=== PATIENT | female | born 1950 | race African-American/Black ===

== ENCOUNTER 2023-07-18 10:26 | Emergency (ER) | payer MEDICARE, MEDICAID, SELFPAY ==
[2023-07-18] VITALS (9 sets, daily range): BP systolic 117–174; BP diastolic 48–96; PULSE 60–117; RESP 18–20; TEMP 36.6–36.8; O2SAT 96–99; BMI 26.5
--- NOTE | ~2023-07-18 | XR_ITS ---
EXAMINATION: XR CHEST CLINICAL INFORMATION: Pain. COMPARISON: Chest radiograph dated 03/24/2018. TECHNIQUE: 2 views of the chest were obtained. FINDINGS: The lungs are clear. The cardiomediastinal silhouette is normal in size. There is no pleural effusion or pneumothorax. No acute osseous abnormality. XR/XR chest 2V IMPRESSION: No acute cardiopulmonary findings.
--- NOTE | ~2023-07-18 | CT_ITS ---
EXAMINATION: CT HEAD WITHOUT CONTRAST CLINICAL INFORMATION: 73-year-old with dizziness. COMPARISON: None available. TECHNIQUE: Contiguous axial imaging was performed from the skull base to vertex without intravenous administration of contrast. This CT examination was performed using dose optimization techniques as appropriate, variously including the following: *Automated exposure control *Adjustment of mA and/or kV according to patient size (this includes techniques or standardized protocols for targeted exams where dose is matched to indication/reason for exam; i.e. extremities or head) *Use of iterative reconstruction technique DLP: 523 mGy-cm FINDINGS: Brain Volume: Within normal limits within the limitations of qualitative assessment. Structural: No malformations. Brain and Meninges: Note is made of a partially calcified extra-axial mass overlying the anterior right frontal convexity along the superior frontal gyrus which appears dural based and measures 3.3 x 2.1 cm in maximum dimensions in the sagittal plane by approximately 2.5 cm in the maximum cross-sectional diameter in the coronal plane. This abuts the anterior falx cerebri and also appears diffusely hyperdense with central calcifications, consistent with a partially calcified meningioma. There is mild to moderate mass effect on the adjacent right superior frontal lobe. There may be a minimal degree of edema within the brain parenchyma adjacent to this. MRI of the brain without and with contrast is recommended for further assessment. The remainder of the brain is normal in morphology and attenuation. [place]-white matter interface is otherwise intact without acute territorial infarct, hemorrhage, extra-axial fluid collection or midline shift. Ganglionic structures, midbrain and brainstem appear within normal limits. Ventricles and Subarachnoid Spaces: The ventricular system is within normal limits with a normal appearance to the remainder of the subarachnoid spaces. There is no hydrocephalus. Orbital Structures: Grossly unremarkable within the limitations of the study. Osseous Structures, Sinuses/Mastoids, Extracranial Soft Tissues: Bony structures appear grossly intact. The visualized airspaces demonstrate mild mucosal thickening in the ethmoid complex and some retained secretions in the sphenoid sinus on the right. The visualized extra cranial soft tissue structures are within normal limits. CT/CT head/brain wo IV con IMPRESSION: 1. Partially calcified, 3.3 cm extra-axial mass overlying the anterior right frontal convexity as described above, most consistent with a partially calcified meningioma, probably with some adjacent mild brain edema. No midline shift. Recommend MRI of the brain without and with contrast for further assessment. 2. No acute territorial infarct, hemorrhage, extra-axial fluid collection, or other mass suspected. 3. Mild paranasal sinus inflammatory changes as described above. The [facility] staff will call to confirm receipt of this report with acknowledgement of the findings and any recommendations.
--- NOTE | 2023-07-18 11:09 | ED.GENADULT ---
HPI - General Adult General Chief complaint: General Medical Stated complaint: Back pain unable to walk Time Seen by Provider: 07/18/23 13:50 Source: patient and family Mode of arrival: ambulatory Limitations: no limitations History of Present Illness HPI narrative: Patient comes to the emergency room accompanied by her daughter. Patient recently, 3 days ago arrived from [facility]. Patient states that approximately 1 month ago, patient was in a normal state of health, active, no limitations. Then suddenly, about a month ago, patient had problems with her vision, states that she could only see white from both eyes which lasted for about 2-3 days. At the same time, patient had trouble speaking. Patient states she knew what she wanted to say but the words would not come out. Also, since then, patient has been much weaker, patient states that she is unsteady on her feet. Patient states that in the last month she has fallen and innumerable amount of time it is. Three days ago, [place] now patient living with her youngest daughter. Patient states that she has mild shoulder and back pain from the falls that she has had. Patient brought with her an MRI result from [facility] that she got done after the above-mentioned event. A meningioma was seen, no strokes were seen Related Data Previous Rx's Medication Instructions Recorded aspirin 81 mg tablet,delayed 81 mg PO DAILY #30 tabs 07/18/23 release blood sugar diagnostic (Freestyle #100 ea 07/18/23 In[employer]x Test Strips) blood-glucose meter (FreeStyle #1 ea 07/18/23 [place] kit) colchicine 0.6 mg tablet 0.6 mg PO BID PRN pain/gout #14 07/18/23 tabs esomeprazole magnesium 40 mg 40 mg PO DAILY #30 caps 07/18/23 capsule,delayed release ezetimibe 10 mg-rosuvastatin 10 mg 1 tab PO DAILY #30 tabs 07/18/23 tablet (Roszet) glucagon HCl 1 mg solution for 1 mg subcut Q20M PRN hypoglycemia 07/18/23 injection (Glucagon (HCl) #1 ea Emergency Kit) insulin aspart U-100 100 unit/mL 7 unit (0.07 mL) subcut DAILY #15 07/18/23 (3 mL) subcutaneous pen (Novolog mL FlexPen U-100 Insulin aspart) insulin glargine 100 unit/mL (3 16 unit (0.16 mL) subcut QPM #15 mL 07/18/23 mL) subcutaneous pen (Lantus Solostar U-100 Insulin) lancets 28 gauge (FreeStyle #100 ea 07/18/23 Lancets) pregabalin 75 mg capsule 75 mg PO DAILY #30 caps 07/18/23 Allergies Allergy/AdvReac Type Severity Reaction Status Date / Time IV contrast Allergy Intermediate Rash Uncoded 07/18/23 14:10 IBUProfen Allergy Unknown Rash Uncoded 07/18/23 11:16 Pencillin Allergy Unknown Rash Uncoded 07/18/23 11:16 Review of Systems Review of Systems: Constitutional : No Weight loss, No Fever, No Chills, No Night Sweats, No Fatigue, No Malaise ENT/Mouth : No Hearing loss, No Ear Pain, No Nasal Congestion, No Sinus Pain, No Hoarseness, No sore throat, No Rhinorrhea, No Swallowing Difficulty Eyes: No Eye Pain, No Swelling, No Redness, No Foreign Body, No Discharge, No Vision Changes Cardiovascular : No Chest Pain, No SOB, No Dyspnea on Exertion, No Orthopnea, No Edema, No Palpitations Respiratory : No Cough, No Sputum, No Wheezing, No Smoke Exposure, No Dyspnea Gastrointestinal : No Nausea, No Vomiting, No Diarrhea, No Constipation, No abdominal Pain, No Hematochezia, No Melena Genitourinary : no irregular bleeding, No Dysuria, No Urinary Frequency, No Hematuria, No Urinary Incontinence, No Urgency, No Flank Pain, No Urinary Flow Changes, No Hesitancy Musculoskeletal : Complaining of right shoulder and back pain from multiple falls. Skin : No Skin Lesions, No rash Neuro : No Weakness, No Numbness, No Paresthesias, No Loss of Consciousness, No Dizziness, No Headache Psych : No Anxiety/Panic, No Depression, No SI/HI/AH/VH, No Social Issues, Heme/Lymph: No Bruising, No Bleeding,No Lymphadenopathy Endocrine : No Polyuria, No Polydipsia, No Temperature Intolerance [facility] Past Medical History Medical History (Updated 07/18/23 @ 16:28 by Amy Lieberman MD) Type 2 diabetes mellitus Surgical History (Updated 06/04/20 @ 08:50 by BRIDGETT Peña) Hx of hand surgery Social History Social History (Updated 06/04/20 @ 08:49 by BRIDGETT Peña) Smoked in Last 30 Days: No Use of substances other than those prescribed or required for medical reasons: No Advance Directives: No Advance Directives Information Provided: No Physical Exam ED Vital Signs: Vital Signs - 24 hr 07/18/23 11:10 07/18/23 14:17 07/18/23 14:19 Temperature 98.3 F Pulse Rate 74 60 70 Respiratory Rate 20 Blood Pressure 130/61 155/72 H 117/96 H Pulse Oximetry 99 Oxygen Delivery Method Room Air 07/18/23 14:21 07/18/23 15:11 07/18/23 15:30 Temperature 98 F Pulse Rate 77 117 H 64 Respiratory Rate 18 Blood Pressure 143/77 H 174/54 H 156/48 H Pulse Oximetry 96 Oxygen Delivery Method Room Air BMI result Body Mass Index 26.5 Const Other: Appearance: Alert. Oriented X3. No acute distress. Eyes: Pupils equal, round and reactive to light. ENT: Pharynx normal. Neck: Normal inspection. Neck supple. No lymph nodes noted. No crepitus CVS: Normal heart rate and rhythm. Pulses normal. Normal S1 and S2 Respiratory: No respiratory distress. Breath sounds normal. No Wheezing. No rales Abdomen: Soft and nontender. No rigidity. No distention. Skin: Skin warm and dry. Normal skin color. Normal skin turgor. Extremities: No lower extremity edema. No Lacerations. No Rash Neuro: Oriented X 3. No motor deficit. No sensory deficit. Moving all extremities. No slurred speech. CN 2 through 12 grossly intact Psych: calm, cooperative, normal affect Course Course Course Narrative: 73-year-old patient recently arrived from [facility] with history of diabetes arrived from [facility] 3 days ago Three days ago she had an episode of vision loss and difficulty forming words a month ago, and lasted for 3 days, she has also had difficulty walking for the last 3 weeks with several falls which is a change from prior, as well as pain and the left side of her back upper and lower for past several weeks, as well as some discomfort with urination Labs are ordered as well as EKG and head CT This is rapid medical exam done in triage pending full evaluation by ER provider in the department Medications Administered Discontinued Medications Generic Name Dose Route Start Last Admin Trade Name Freq PRN Reason Stop Dose Admin Sodium Chloride 1,000 mls @ 999 mls/hr 07/18/23 14:06 07/18/23 16:10 Ns IVCONT 07/18/23 15:06 Infused .Q1H1M ONE Infusion Insulin Human Regular 10 unit 07/18/23 14:06 07/18/23 14:37 Insulin Regular, Human 100 Unit/Ml 3 Ml Vial IVPUSH 07/18/23 14:07 Not Given ONCE ONE Medical Decision Making Medical Decision Making [facility] Narrative: -my interpretation of labs: Normal hematology, normal chemistry except glucose which is a bit elevated at 327 -head CT radiology report pending. My interpretation of CT scan: Meningioma on the right side, no obvious intracranial bleed or signs of previous strokes -patient receiving IV fluids, IV insulin -patient was ambulated in the emergency room, it was reported by the patient's tech that the patient had a fairly normal gait and was able to ambulate by herself. -I discussed the CT scan with radiology on-call. Meningioma was seen. Recommendations: Follow up with MRI with and without contrast. -I discussed the above-mentioned recommendation with the patient and her daughter. They have an MRI report from [facility] done several weeks ago, with the results of meningioma. I discussed with the patient her daughter the week and repeat the MRI, get a 2nd opinion. At this time, the patient and her family would prefer to be discharged home. Discussed with the patient that given that she has had multiple falls, I recommend to have her follow up with Neurology. -Physical therapy CT/case management consult was offered to the patient and her daughter. However, they would prefer to go home. -patient requesting refills of some of her medications from [facility]. I reviewed the medications with the patient and the daughter, most of them I can send to the patient's pharmacy but, some of the patient's medications are not available in the [place] Differential Diagnosis Differential Diagnoses: The differential diagnosis associated with the presentation includes (TIA, CVA, UTI, cerebral mass, meningioma) Admission/Observation Consideration of admission/observation: Escalation of care including admission/observation considered Lab Data [facility] Lab Attestation statement: I reviewed the patient's lab results. 07/18/23 11:52 07/18/23 11:52 Labs: Lab Results 07/18/23 07/18/23 07/18/23 Range/Units 11:52 12:01 14:15 WBC 5.0 (4.8-10.8) X10*3/uL RBC 5.39 (4.20-5.50) X10*6/uL Hgb 14.0 (12.0-16.0) g/dl Hct 43.6 (37.0-47.0) % MCV 80.9 (80.0-98.0) fL MCH 26.0 L (27.0-33.0) pg MCHC 32.1 (31.0-35.0) g/dl RDW 16.1 H (11.0-16.0) % Plt Count 134 L (160-400) X10*3/uL MPV Not Reportable Immature Gran % (Auto) 0.4 (0.0-0.4) % Neut % (Auto) 62.8 (45-73) % Lymph % (Auto) 23.9 (20-40) % [place] % (Auto) 10.3 (2-11) % Eos % (Auto) 1.4 (0-4) % Baso % (Auto) 1.2 (0-2) % Lymph # (Auto) 1.2 (1.2-4.9) X10*3/uL [place] # (Auto) 0.5 (0.1-1.2) X10*3/uL Eos # (Auto) 0.1 (0.0-0.4) X10*3/uL Baso # (Auto) 0.1 (0.0-0.2) X10*3/uL Abs Immat Gran (auto) 0.02 (0.00-0.03) X10*3/uL Absolute Neuts (auto) 3.1 (2.0-8.3) x10*3/uL Absolute Nucleated RBC 0.000 (0.0-0.012) X10*3/uL Nucleated RBC % (auto) 0.0 (0.0-0.2) /100WBC Smear Tech's Comments VERIFIED PT 11.8 (11.1-13.3) SEC INR 1.0 (0.9-1.1) Sodium 138 (135-145) mmol/L Potassium 4.4 (3.3-5.1) mmol/L Chloride 105 (96-108) mmol/L Carbon Dioxide 22 (22-29) mmol/L Anion Gap 15 (12-20) BUN 13 (9-16) mg/dL Creatinine 0.85 (0.5-1.4) mg/dL Estim Creat Clear Calc 56.1 Estimated GFR > 60 POC Glucose 239 H (60-115) mg/dL Random Glucose 327 H (60-115) mg/dL Estimat Average Glucose 292 mg/dL Hemoglobin A1c % 11.8 H (<6.0) % Calcium 10.7 H (8.4-10.2) mg/dL Total Bilirubin 0.4 (0.0-1.0) mg/dL Direct Bilirubin 0.2 (0.0-0.5) mg/dL AST 17 (5-31) U/L ALT 14 (0-31) U/L Alkaline Phosphatase 140 H (39-117) U/L Troponin I High Sens < 2.7 (<3.5-17.0) ng/L Total Protein 7.7 (6.5-8.0) g/dL Albumin 4.3 (3.5-5.0) g/dL Urine Color Yellow Urine Appearance Clear Urine pH 5.0 (5.0-9.0) Ur Specific [place] >= 1.030 H (1.005-1.025) Urine Protein Negative (Neg-Trace) mg/dL Urine Glucose (UA) >=1000 H (Negative) mg/dL Urine Ketones Trace (Negative) mg/dL Urine Blood Negative (Negative) Urine Nitrite Negative (Negative) Ur Leukocyte Esterase Negative (Negative) Urine RBC 0-2 (0-2) /HPF Urine WBC 0-5 (0-5) /HPF Ur Squamous Epith Cells 0-2 (0-2) /HPF Urine Bacteria None Seen (None Seen) Hyaline Casts 0-2 (0-2) /LPF Independent Interpretation I performed an independent interpretation of an: CT Scan Radiology Impression Discussion of test interpretation with radiology: I have reviewed the radiologist's reading. Radiologist Impression: IMPRESSION: 1. Partially calcified, 3.3 cm extra-axial mass overlying the anterior right frontal convexity as described above, most consistent with a partially calcified meningioma, probably with some adjacent mild brain edema. No midline shift. Recommend MRI of the brain without and with contrast for further assessment. 2. No acute territorial infarct, hemorrhage, extra-axial fluid collection, or other mass suspected. 3. Mild paranasal sinus inflammatory changes as described above. The [facility] staff will call to confirm receipt of this report with acknowledgement of the findings and any recommendations. Independent Historian Clinical information obtained from an independent historian. History obtained from or confirmed by: Other (Patient's daughter) Tests considered The following testing was considered but not selected: I consider doing an MRI with and without contrast, however, the patient would prefer to be discharged home and do it in an outpatient basis. Critical Care Time Critical Care Time Critical Care Time: Yes Total Critical Care Time: 60 Attestation: I have personally provided critical care time. Time includes review of lab data, radiology results, discussion with consultants, and monitoring for potential decompensation. Intervention performed as documented. Discharge Plan Discharge Clinical Impression: Multiple falls, Meningioma Patient Disposition: Home, Self-Care Instructions: Meningioma (ED) Additional Instructions: Please follow-up with your primary care physician tomorrow. If you have any worsening or new symptoms, please return to the emergency room or call 911 Prescriptions: New colchicine 0.6 mg tablet 0.6 mg PO BID PRN (Reason: pain/gout) Qty: 14 0RF pregabalin 75 mg capsule 75 mg PO DAILY Qty: 30 1RF aspirin 81 mg tablet,delayed release (DR/EC) 81 mg PO DAILY Qty: 30 1RF ezetimibe-rosuvastatin [Roszet] 10-10 mg tablet 1 tab PO DAILY Qty: 30 1RF esomeprazole magnesium 40 mg capsule,delayed release(DR/EC) 40 mg PO DAILY Qty: 30 1RF insulin glargine [Lantus Solostar U-100 Insulin] 100 unit/mL (3 mL) insulin pen 16 unit subcut QPM Qty: 15 0RF insulin aspart U-100 [Novolog FlexPen U-100 Insulin] 100 unit/mL (3 mL) insulin pen 7 unit subcut DAILY Qty: 15 0RF (DME) blood-glucose meter [FreeStyle [place]] Kit See Rx Instructions .Route Qty: 1 0RF Rx Instructions: As directed (DME) Freestyle [employer] Test Strips Strip See Rx Instructions .Route Qty: 100 0RF Rx Instructions: As directed (DME) lancets [FreeStyle Lancets] 28 gauge misc See Rx Instructions .Route Qty: 100 0RF Rx Instructions: As directed glucagon HCl [Glucagon (HCl) Emergency Kit] 1 mg recon soln 1 mg subcut Q20M PRN (Reason: hypoglycemia) Qty: 1 0RF Rx Instructions: until target blood sugar attained Referrals: Angeles Agrawal MD [Physician] - 07/20/23 (Multiple falls, chronic meningioma)
--- NOTE | 2023-07-18 11:16 | ECG_ITS ---
Test Reason : PAIN Blood Pressure : / mmHG Vent. Rate : 073 BPM Atrial Rate : 073 BPM P-R Int : 148 ms QRS Dur : 074 ms QT Int : 348 ms P-R-T Axes : 034 -03 038 degrees QTc Int : 383 ms Normal sinus rhythm Normal ECG No previous ECGs available Referred By: Aniket Obrien Electronically Signed By:Roshan Ramsey
[2023-07-18 12:08] LABS: Basophils Absolute Auto 0.1 X10*3/uL (0.0-0.2); Basophils Percent Auto 1.2 % (0-2); Eosinophils Absolute Auto 0.1 X10*3/uL (0.0-0.4); Eosinophils Percent Auto 1.4 % (0-4); Hematocrit 43.6 % (37.0-47.0); Imm Gran Abs Auto 0.02 X10*3/uL (0.00-0.03); Imm Gran Pct Auto 0.4 % (0.0-0.4); Lymphocytes Absolute Auto 1.2 X10*3/uL (1.2-4.9); Lymphocytes Percent Auto 23.9 % (20-40); MANUAL DIFF FLAG SCAN; Mean Corpuscular HGB Conc 32.1 g/dl (31.0-35.0); Mean Corpuscular Volume 80.9 fL (80.0-98.0); Monocytes Absolute Auto 0.5 X10*3/uL (0.1-1.2); Monocytes Percent Auto 10.3 % (2-11); Neutrophils Absolute Auto 3.1 x10*3/uL (2.0-8.3); Neutrophils Percent Auto 62.8 % (45-73); PLT CLUMP 1; Red Blood Count 5.39 X10*6/uL (4.20-5.50); Red Cell Distribution Width 16.1 % (11.0-16.0); SCAN SMEAR FLAG 1
[2023-07-18 12:09] LABS: Prothrombin Time 11.8 SEC (11.1-13.3)
[2023-07-18 12:23] LABS: Alanine Aminotransferase 14 U/L (0-31); Albumin Level 4.3 g/dL (3.5-5.0); Alkaline Phosphatase 140 U/L (39-117); Anion Gap 15 (12-20); Aspartate Amino Transferase 17 U/L (5-31); Bilirubin Direct 0.2 mg/dL (0.0-0.5); Bilirubin Total 0.4 mg/dL (0.0-1.0); Blood Urea Nitrogen 13 mg/dL (9-16); Calcium 10.7 mg/dL (8.4-10.2); Carbon Dioxide 22 mmol/L (22-29); Chloride 105 mmol/L (96-108); Creatinine Clr Calc Pharmacy 56.1; Estimated Glomerular Filt Rate > 60; Glucose Random 327 mg/dL (60-115); Potassium 4.4 mmol/L (3.3-5.1); Sodium 138 mmol/L (135-145); Total Protein 7.7 g/dL (6.5-8.0)
[2023-07-18 12:25] LABS: Platelet Count 134 X10*3/uL (160-400); SLIDE REVIEW VERIFIED
[2023-07-18 12:31] LABS: Troponin-I High Sensitivity < 2.7 ng/L (<3.5-17.0)
[2023-07-18 12:43] LABS: Appearance Urine Clear; Color Urine Yellow; Glucose Urine UA >=1000 mg/dL (Negative); Leukocyte Esterase Urine Negative (Negative); Nitrite Urine Negative (Negative); Specific Gravity - Urine >= 1.030 (1.005-1.025); UMIC TRIGGER UACC YES; Urine Blood Negative (Negative); Urine Ketones Trace mg/dL (Negative); Urine Protein Negative (Neg-Trace)
[2023-07-18 12:48] LABS: Bacteria Urine None Seen (None Seen); Hyaline Casts Urine 0-2 /LPF (0-2); RBC Urine 0-2 /HPF (0-2); Squamous Epithelial Cell Urine 0-2 /HPF (0-2); WBC Urine 0-5 /HPF (0-5)
[2023-07-18 14:32] LABS: Estimated Average Glucose 292 mg/dL; Hemoglobin A1c % 11.8 % (<6.0)
[2023-07-18 14:33] LABS: Glucose, Whole Blood 239 mg/dL (60-115)
[2023-07-18] MEDS: 0.9 % Sodium Chloride 1,000 ML 999 ML IVCONT (14:37)
[2023-07-18 16:23] LABS: Glucose, Whole Blood 204 mg/dL (60-115)
== END 2023-07-18 17:04 | disposition home or self-care (01) ==
PROVIDERS: Physician Assistant Medical; Emergency Provider Emergency Medicine
DX: D32.0 Benign neoplasm of cerebral meninges (principal); M25.511 Pain in right shoulder; H53.8 Other visual disturbances; R47.9 Unspecified speech disturbances; R26.81 Unsteadiness on feet; M54.9 Dorsalgia, unspecified; R29.6 Repeated falls; E11.9 Type 2 diabetes mellitus without complications; Z79.4 Long term (current) use of insulin; Z79.82 Long term (current) use of aspirin; Z79.899 Other long term (current) drug therapy
CPT/HCPCS: 36415; 70450; 71046; 80048; 80076; 81001; 82947; 83036; 84484; 85025; 85610; 93005; 96360; 96361; 99284; 99285

== ENCOUNTER → 2023-07-18 11:16 | Outpatient (BNV) | payer MEDICARE, MEDICAID, SELFPAY | PROVIDERS: Emergency Provider Emergency Medicine; Visit Provider Internal Medicine Cardiovascular Disease | DX: R26.81 Unsteadiness on feet (principal) | CPT/HCPCS: 93010 ==

== ENCOUNTER 2023-07-23 09:27 | Emergency (ER) | payer MEDICARE, MEDICAID, SELFPAY ==
--- NOTE | ~2023-07-23 | XR_ITS ---
EXAMINATION: Dorsal and lumbar spine. CLINICAL INDICATION: Fall, pain and tenderness COMPARISON: None. TECHNIQUE: 3 views dorsal spine and 3 views lumbar spine. FINDINGS: DORSAL SPINE: There is normal thoracic kyphosis. The vertebral heights, alignment and disc heights are normal. There is no visible acute fracture, dislocation or subluxation seen. There is mild spondylosis lower dorsal spine. No aggressive lytic or sclerotic process seen. There is no acute fracture or dislocation. The paravertebral soft tissues are normal. LUMBAR SPINE: There is normal lumbar lordosis. The vertebral heights, alignment and disc heights are normal. There is mild bilateral L5-S1 facet joint hypertrophy. There is no visible acute fracture, dislocation or subluxation seen. SI joints are symmetrical and normal. The paravertebral soft tissues are normal XR/XR lumbar spine 2-3V IMPRESSION: Unremarkable dorsal spine. Mild bilateral L5-S1 facet joint arthropathy. No aggressive lytic or sclerotic process seen.
--- NOTE | ~2023-07-23 | CT_ITS ---
EXAMINATION: HEAD CT WITHOUT CONTRAST CERVICAL SPINE CT WITHOUT CONTRAST CLINICAL INFORMATION: persistent dizziness, frequent falls. Trauma COMPARISON: 07/18/2023 TECHNIQUE: Contiguous axial imaging of the head was performed without the administration of IV contrast. Axial multidetector volumetric images were also performed through the cervical spine without intravenous contrast. Multiplanar reconstructed images in coronal and sagittal orientations were submitted. This CT examination was performed using dose optimization techniques as appropriate, variously including the following: *Automated exposure control *Adjustment of mA and/or kV according to patient size (this includes techniques or standardized protocols for targeted exams where dose is matched to indication/reason for exam; i.e. extremities or head) *Use of iterative reconstruction technique DOSE: 849 mGy-cm FINDINGS: HEAD: Again seen is a dural based, partially calcified, extra-axial mass along the parasagittal right frontal convexity, consistent with a partially calcified meningioma. This measures up to 3.2 cm in diameter and is unchanged in size, producing mass effect upon the adjacent right frontal lobe. There is no evidence of acute intracranial hemorrhage or territorial infarction. No midline shift. No extra-axial fluid collections. [place] to white matter differentiation is well preserved. The ventricles are normal in size and configuration. A few foci of hypoattenuation in the subcortical and periventricular white matter are most consistent with mild chronic microvascular ischemic changes. The soft tissues and osseous structures are normal. Mild mucosal thickening in the sphenoid sinuses. Paranasal sinuses otherwise clear. Mastoid air cells are clear. CERVICAL SPINE: Vertebral body heights are normal. No fractures of the vertebral bodies or posterior elements. Vertebral alignment is normal. No subluxation. Incomplete fusion of the posterior arch of C1. Incidental note is made of small cervical ribs. The craniocervical and atlantoaxial articulations are normal. Intervertebral disc heights are normal. No significant degenerative disc disease. Facet joints are normal. Central canal and neural foramina appear patent without appreciable stenoses. No significant paravertebral soft tissue swelling. Cervical soft tissues are unremarkable. Imaged portions of the lung apices are clear. CT/CT cervical spine wo IV con IMPRESSION: 1. No acute intracranial pathology. Unchanged partially calcified meningioma along the right frontal convexity with adjacent mass effect upon the right frontal lobe.. 2. No acute fracture or malalignment in the cervical spine.
--- NOTE | ~2023-07-23 | XR_ITS ---
EXAMINATION: Dorsal and lumbar spine. CLINICAL INDICATION: Fall, pain and tenderness COMPARISON: None. TECHNIQUE: 3 views dorsal spine and 3 views lumbar spine. FINDINGS: DORSAL SPINE: There is normal thoracic kyphosis. The vertebral heights, alignment and disc heights are normal. There is no visible acute fracture, dislocation or subluxation seen. There is mild spondylosis lower dorsal spine. No aggressive lytic or sclerotic process seen. There is no acute fracture or dislocation. The paravertebral soft tissues are normal. LUMBAR SPINE: There is normal lumbar lordosis. The vertebral heights, alignment and disc heights are normal. There is mild bilateral L5-S1 facet joint hypertrophy. There is no visible acute fracture, dislocation or subluxation seen. SI joints are symmetrical and normal. The paravertebral soft tissues are normal XR/XR thoracic spine 3V IMPRESSION: Unremarkable dorsal spine. Mild bilateral L5-S1 facet joint arthropathy. No aggressive lytic or sclerotic process seen.
--- NOTE | ~2023-07-23 | XR_ITS ---
EXAMINATION: XR CHEST CLINICAL INFORMATION: Fatigue COMPARISON: Chest 07/18/2023 TECHNIQUE: 2 views of the chest were obtained. FINDINGS: The lungs are well-expanded and clear. The heart size and pulmonary vascularity is normal. There is mild spondylosis of dorsal spine. No aggressive lytic or sclerotic process seen. XR/XR chest 2V IMPRESSION: Unremarkable chest examination.
--- NOTE | ~2023-07-23 | MR_ITS ---
EXAMINATION: MR BRAIN WITHOUT CONTRAST CLINICAL INFORMATION: Difficulty walking, falls COMPARISON: CT head 07/23/2023 and 07/18/2023 TECHNIQUE: MRI of the brain was obtained using routine sequences without contrast. FINDINGS: No acute infarct. No acute intracranial hemorrhage or extra-axial fluid collection. Mild to moderate generalized parenchymal volume loss that findings to suggest superimposed communicating hydrocephalus. Patchy T2 FLAIR hyperintense foci in the subcortical and periventricular white matter, nonspecific but presumably mild chronic microangiopathy. Focus of chronic ischemia/chronic lacunar infarct within the right paramidline dorsal pontomesencephalic junction. Stable densely calcified meningioma along the high anterior right frontal convexity measuring 3.0 x 2.5 x 2.7 cm with mild mass effect along the subjacent right frontal lobe but without vasogenic edema. The medial margin abuts the right aspect of the falx cerebri. No herniation pattern. Normal intracranial arterial and dural venous sinus flow voids. Partially empty sella. The orbits are grossly unremarkable. Mild to moderate patchy paranasal sinus mucosal disease, most pronounced in the right sphenoid sinus. No mastoid effusion. Normal marrow signal. MR/MR head/brain wo con IMPRESSION: 1. No acute intracranial process. 2. Mild to moderate global cerebral volume loss and nonspecific white matter disease, presumably mild chronic microangiopathy. Small focus of presumed chronic ischemia/chronic lacunar infarct at the right paramidline dorsal pontomesencephalic junction. 3. Stable 3.0 x 2.5 x 2.7 cm with mild mass effect along the subjacent right frontal lobe but without vasogenic edema.
[2023-07-23 09:35] VITALS: BP 133/73; PULSE 62; O2SAT 99
[2023-07-23 09:41] VITALS: BP 135/56; PULSE 62; RESP 18; TEMP 36.6; O2SAT 99; BMI 27.3
--- NOTE | 2023-07-23 10:12 | ED.GENADULT ---
HPI - General Adult General Chief complaint: General Medical Stated complaint: DRY COUGH,WEAK,DIFF AMB PER EMS Time Seen by Provider: 07/23/23 10:12 History of Present Illness HPI narrative: The patient is a 73-year-old female who has a history of diabetes. She is originally from [facility] but had been living in this country for a long time until . She returned to [facility] in March of 2020 or thereabouts and stayed in [facility] for approximately 3 years. She returned to this country about 8 days ago. Apparently over the last few months the patient has been having trouble with dizziness and walking and frequent falls. She had an MRI of her brain in [facility] before returning to this country that showed a meningioma. The patient came to the emergency room here 5 days ago on July 18. At that visit she was complaining of pains in her shoulders and her back that she attributed to multiple falls that she had had in the previous few months. In the emergency room on July 18 she received a L of IV fluids and also a dose of insulin for hyperglycemia. The patient was offered physical therapy evaluation and case management when she was here 5 days ago but she preferred to go home with her daughter. She has been living with her daughter. Over the last few days she continues to feel dizzy and her blood sugars have remained quite high. This morning her daughter called an ambulance because her blood sugar was 535. She has been feeling weaker and has been having more trouble walking. She also has a nonproductive cough. Related Data Previous Rx's Medication Instructions Recorded aspirin 81 mg tablet,delayed 81 mg PO DAILY #30 tabs 07/18/23 release blood sugar diagnostic (Freestyle #100 ea 07/18/23 [employer] Test Strips) blood-glucose meter (FreeStyle #1 ea 07/18/23 [place] kit) colchicine 0.6 mg tablet 0.6 mg PO BID PRN pain/gout #14 07/18/23 tabs esomeprazole magnesium 40 mg 40 mg PO DAILY #30 caps 07/18/23 capsule,delayed release ezetimibe 10 mg-rosuvastatin 10 mg 1 tab PO DAILY #30 tabs 07/18/23 tablet (Roszet) glucagon HCl 1 mg solution for 1 mg subcut Q20M PRN hypoglycemia 07/18/23 injection (Glucagon (HCl) #1 ea Emergency Kit) insulin aspart U-100 100 unit/mL 7 unit (0.07 mL) subcut DAILY #15 07/18/23 (3 mL) subcutaneous pen (Novolog mL FlexPen U-100 Insulin aspart) insulin glargine 100 unit/mL (3 16 unit (0.16 mL) subcut QPM #15 mL 07/18/23 mL) subcutaneous pen (Lantus Solostar U-100 Insulin) lancets 28 gauge (FreeStyle #100 ea 07/18/23 Lancets) pregabalin 75 mg capsule 75 mg PO DAILY #30 caps 07/18/23 pregabalin 75 mg capsule 75 mg PO BEDTIME #30 caps 07/23/23 Allergies Allergy/AdvReac Type Severity Reaction Status Date / Time IV contrast Allergy Intermediate Rash Uncoded 07/18/23 14:10 IBUProfen Allergy Unknown Rash Uncoded 07/18/23 11:16 Pencillin Allergy Unknown Rash Uncoded 07/18/23 11:16 [facility] Past Medical History Medical History (Updated 07/23/23 @ 16:17 by Alvin Hebert MD) Type 2 diabetes mellitus Surgical History (Updated 06/04/20 @ 08:50 by BRIDGETT Peña) Hx of hand surgery Social History Social History (Updated 06/04/20 @ 08:49 by BRIDGETT Peña) Smoked in Last 30 Days: No Use of substances other than those prescribed or required for medical reasons: No Any prior treatment program specific to substance use: No Advance Directives: No Advance Directives Information Provided: Yes Physical Exam ED Vital Signs: Vital Signs - 24 hr 07/23/23 09:41 07/23/23 12:24 Temperature 97.9 F Pulse Rate 62 54 Respiratory Rate 18 15 Blood Pressure 135/56 L 159/66 H Pulse Oximetry 99 98 Oxygen Delivery Method Room Air Room Air BMI result Body Mass Index 27.3 Const Other: The patient is awake and alert. She is a pleasant 73-year-old. She looks chronically ill but not obviously acutely ill. HENMT Other: Face is symmetrical. Mucous membranes moist. Eyes Other: Pupils are round equal, lateral gaze is intact, visual marcano are intact to confrontation. Neck Other: Moving her neck easily. There was some posterior C-spine tenderness however. Resp Other: Lungs are clear bilaterally. Cardio Other: The patient has regular rate and rhythm no murmur GI Other: Abdomen is soft nontender Skin Other: Skin is dry and unremarkable Neuro Other: The patient is awake, alert, oriented, appropriate. Speech is clear. Face is symmetrical. Eye movements are normal. Visual marcano are intact to confrontation. She has symmetrical strength in all 4 extremities. No pronator drift. Finger-nose is normal bilaterally. She was able to walk fairly well with assistance but said that she would feel unsteady if she was not holding on to something. No definite focal neurological deficit. Medications Administered Discontinued Medications Generic Name Dose Route Start Last Admin Trade Name Fresanjeev PRN Reason Stop Dose Admin Sodium Chloride 1,000 mls @ 999 mls/hr 07/23/23 10:30 07/23/23 13:03 Ns IV 07/23/23 11:30 Infused .Q1H1M SARI Infusion Medical Decision Making Medical Decision Making [facility] Narrative: Patient is a very pleasant 73-year-old type 2 diabetic who has been having problems with walking and falls for several weeks or even a couple of months. She has recently returned from [facility]. She does not have a PCP. She describes having had multiple falls over the last several weeks or months. She has pain in her neck and in her back from these falls. Patient had imaging studies that shows no injuries from her multiple falls including head CT, cervical spine CT, x-rays of the thoracic spine in the lumbar spine. Her labs are largely unremarkable. EKG unremarkable. An MRI of the brain does not show any findings to suggest that she has had a recent posterior circulation stroke that might be accounting for her unsteadiness and frequent falls. I explained to the patient that we could keep her in the emergency room to be seen by case management and physical therapy but this would probably means that she would be in the emergency room till Tuesday. She did not wish to stay in the emergency room for these services until Tuesday. She said under those circumstances she wanted to go home. I wrote a prescription for a walker. She will likely do fairly well with a walker in my opinion. She also requested a prescription for needles for her insulin. She has NovoLog and Lantus. I wrote prescriptions for needles for her insulins. Lab Data 07/23/23 10:47 07/23/23 10:47 Labs: Lab Results 07/23/23 07/23/23 07/23/23 Range/Units 10:47 10:51 11:29 WBC 5.0 (4.8-10.8) X10*3/uL RBC 5.11 (4.20-5.50) X10*6/uL Hgb 13.2 (12.0-16.0) g/dl Hct 41.4 (37.0-47.0) % MCV 81.0 (80.0-98.0) fL MCH 25.8 L (27.0-33.0) pg MCHC 31.9 (31.0-35.0) g/dl RDW 15.9 (11.0-16.0) % Plt Count 127 L (160-400) X10*3/uL MPV Not Reportable Immature Gran % (Auto) 0.2 (0.0-0.4) % Neut % (Auto) 63.8 (45-73) % Lymph % (Auto) 28.6 (20-40) % [place] % (Auto) 5.8 (2-11) % Eos % (Auto) 1.0 (0-4) % Baso % (Auto) 0.6 (0-2) % Lymph # (Auto) 1.4 (1.2-4.9) X10*3/uL [place] # (Auto) 0.3 (0.1-1.2) X10*3/uL Eos # (Auto) 0.1 (0.0-0.4) X10*3/uL Baso # (Auto) 0.0 (0.0-0.2) X10*3/uL Abs Immat Gran (auto) 0.01 (0.00-0.03) X10*3/uL Absolute Neuts (auto) 3.2 (2.0-8.3) x10*3/uL Absolute Nucleated RBC 0.000 (0.0-0.012) X10*3/uL Nucleated RBC % (auto) 0.0 (0.0-0.2) /100WBC VBG pH 7.40 (7.32-7.43) VBG pCO2 37 mmHg VBG pO2 46 mmHg VBG HCO3 23 (22-26) mmol/L VBG O2 Saturation 74.0 % VBG Base Excess -1.0 mmol/L Sodium 139 (135-145) mmol/L Potassium 4.1 (3.3-5.1) mmol/L Chloride 108 (96-108) mmol/L Carbon Dioxide 22 (22-29) mmol/L Anion Gap 13 (12-20) BUN 12 (9-16) mg/dL Creatinine 0.87 (0.5-1.4) mg/dL Estim Creat Clear Calc 55.6 Estimated GFR > 60 Random Glucose 368 H* (60-115) mg/dL Calcium 10.9 H (8.4-10.2) mg/dL Magnesium 2.4 (1.6-2.6) mg/dL Total Bilirubin 0.3 (0.0-1.0) mg/dL Direct Bilirubin 0.1 (0.0-0.5) mg/dL AST 12 (5-31) U/L ALT 9 (0-31) U/L Alkaline Phosphatase 140 H (39-117) U/L Troponin I High Sens < 2.7 (<3.5-17.0) ng/L C-Reactive Protein 1.26 H (< or = 0.50) mg/dL B-Natriuretic Peptide 15 (<100) pg/mL Total Protein 7.0 (6.5-8.0) g/dL Albumin 3.8 (3.5-5.0) g/dL Urine Color Yellow Urine Appearance Clear Urine pH 5.0 (5.0-9.0) Ur Specific [place] >= 1.030 H (1.005-1.025) Urine Protein Negative (Neg-Trace) mg/dL Urine Glucose (UA) >=1000 H (Negative) mg/dL Urine Ketones 15 (Negative) mg/dL Urine Blood Negative (Negative) Urine Nitrite Negative (Negative) Ur Leukocyte Esterase Negative (Negative) Urine RBC 0-2 (0-2) /HPF Urine WBC 0-5 (0-5) /HPF Ur Squamous Epith Cells 0-2 (0-2) /HPF Urine Bacteria None Seen (None Seen) Hyaline Casts 0-2 (0-2) /LPF Influenza Type A (PCR) NEGATIVE (Negative) Influenza Type B (PCR) NEGATIVE (Negative) RSV RNA Qual (PCR) NEGATIVE (Negative) SARS-CoV-2 RNA (RT-PCR) NEGATIVE (Negative) Independent Interpretation I performed an independent interpretation of an: EKG Interpretation: EKG at 10:28 shows sinus bradycardia 59 beats per minute. It is an otherwise normal EKG. Discharge Plan Discharge Clinical Impression: Frequent falls, Back pain, Cough, Type 2 diabetes mellitus Patient Disposition: Home, Self-Care Additional Instructions: Your testing in the emergency room today is reassuring. There is no sign of a recent stroke on your MRI. I have given you a prescription which I hope will allow you to get a walker. I think you will be able to walk more safely with a walker. I have also written a prescription which I hope will allow the pharmacy to give you additional insulin needles. Please work on getting a new primary care doctor. You may try the [facility] at [phone]. Return to the emergency room if worse. Prescriptions: New pregabalin 75 mg capsule 75 mg PO BEDTIME Qty: 30 0RF No Action colchicine 0.6 mg tablet 0.6 mg PO BID PRN (Reason: pain/gout) Qty: 14 0RF pregabalin 75 mg capsule 75 mg PO DAILY Qty: 30 1RF aspirin 81 mg tablet,delayed release (DR/EC) 81 mg PO DAILY Qty: 30 1RF ezetimibe-rosuvastatin [Roszet] 10-10 mg tablet 1 tab PO DAILY Qty: 30 1RF esomeprazole magnesium 40 mg capsule,delayed release(DR/EC) 40 mg PO DAILY Qty: 30 1RF insulin glargine [Lantus Solostar U-100 Insulin] 100 unit/mL (3 mL) insulin pen 16 unit subcut QPM Qty: 15 0RF insulin aspart U-100 [Novolog FlexPen U-100 Insulin] 100 unit/mL (3 mL) insulin pen 7 unit subcut DAILY Qty: 15 0RF (DME) blood-glucose meter [FreeStyle [place]] Kit See Rx Instructions .Route Qty: 1 0RF Rx Instructions: As directed (DME) Freestyle [employer] Test Strips Strip See Rx Instructions .Route Qty: 100 0RF Rx Instructions: As directed (DME) lancets [FreeStyle Lancets] 28 gauge misc See Rx Instructions .Route Qty: 100 0RF Rx Instructions: As directed glucagon HCl [Glucagon (HCl) Emergency Kit] 1 mg recon soln 1 mg subcut Q20M PRN (Reason: hypoglycemia) Qty: 1 0RF Rx Instructions: until target blood sugar attained Referrals: [facility] [Primary Care Provider] - (Frequent falls, type 2 diabetes) Interventions: ED Discharge Assessment Last Done: 07/23/23 17:10 Discharge Date/Time: 07/23/23 17:12
--- NOTE | 2023-07-23 10:20 | ECG_ITS ---
Test Reason : WEAKNESS Blood Pressure : / mmHG Vent. Rate : 059 BPM Atrial Rate : 059 BPM P-R Int : 160 ms QRS Dur : 076 ms QT Int : 378 ms P-R-T Axes : 050 008 046 degrees QTc Int : 374 ms Sinus bradycardia Otherwise normal ECG When compared with ECG of 18-JUL-2023 11:34, No significant change was found Referred By: Alvin Hebert Electronically Signed By:Roshan Ramsey
[2023-07-23 10:51] LABS: MANUAL DIFF FLAG NO
[2023-07-23 10:56] LABS: Basophils Percent Auto 0.6 % (0-2); Eosinophils Absolute Auto 0.1 X10*3/uL (0.0-0.4); Hematocrit 41.4 % (37.0-47.0); Hemoglobin 13.2 g/dl (12.0-16.0); Imm Gran Abs Auto 0.01 X10*3/uL (0.00-0.03); Imm Gran Pct Auto 0.2 % (0.0-0.4); Lymphocytes Absolute Auto 1.4 X10*3/uL (1.2-4.9); Lymphocytes Percent Auto 28.6 % (20-40); Mean Corpuscular HGB Conc 31.9 g/dl (31.0-35.0); Mean Corpuscular Hemoglobin 25.8 pg (27.0-33.0); Monocytes Absolute Auto 0.3 X10*3/uL (0.1-1.2); Monocytes Percent Auto 5.8 % (2-11); Neutrophils Absolute Auto 3.2 x10*3/uL (2.0-8.3); Neutrophils Percent Auto 63.8 % (45-73); Platelet Count 127 X10*3/uL (160-400); Red Blood Count 5.11 X10*6/uL (4.20-5.50); Red Cell Distribution Width 15.9 % (11.0-16.0)
[2023-07-23 10:56] LABS: Venous Blood Gas Refer to POC result
[2023-07-23 10:57] LABS: VBG HCO3 23 mmol/L (22-26); VBG pCO2 37 mmHg; VBG pO2 46 mmHg
[2023-07-23] MEDS: 0.9 % Sodium Chloride 1,000 ML 999 ML IV (11:06)
[2023-07-23 11:12] LABS: B Type Natriuretic Peptide 15 pg/mL (<100)
[2023-07-23 11:15] LABS: Alanine Aminotransferase 9 U/L (0-31); Albumin Level 3.8 g/dL (3.5-5.0); Alkaline Phosphatase 140 U/L (39-117); Anion Gap 13 (12-20); Aspartate Amino Transferase 12 U/L (5-31); Bilirubin Direct 0.1 mg/dL (0.0-0.5); Bilirubin Total 0.3 mg/dL (0.0-1.0); Blood Urea Nitrogen 12 mg/dL (9-16); C Reactive Protein 1.26 mg/dL (< or = 0.50); Calcium 10.9 mg/dL (8.4-10.2); Carbon Dioxide 22 mmol/L (22-29); Chloride 108 mmol/L (96-108); Creatinine Clr Calc Pharmacy 55.6; Estimated Glomerular Filt Rate > 60; Glucose Random 368 mg/dL (60-115); Magnesium 2.4 mg/dL (1.6-2.6); Potassium 4.1 mmol/L (3.3-5.1); Sodium 139 mmol/L (135-145)
[2023-07-23 11:16] LABS: Troponin-I High Sensitivity < 2.7 ng/L (<3.5-17.0)
[2023-07-23 11:34] LABS: Appearance Urine Clear; Color Urine Yellow; Glucose Urine UA >=1000 mg/dL (Negative); Leukocyte Esterase Urine Negative (Negative); Nitrite Urine Negative (Negative); Specific Gravity - Urine >= 1.030 (1.005-1.025); UMIC TRIGGER UACC YES; Urine Blood Negative (Negative); Urine Ketones 15 mg/dL (Negative); Urine Protein Negative (Neg-Trace)
[2023-07-23 11:43] LABS: Influenza A PCR NEGATIVE (Negative); Influenza B PCR NEGATIVE (Negative); Resp Syncy Virus RNA Qual PCR NEGATIVE (Negative); SARS COV2 PCR INHOUSE NEGATIVE (Negative)
[2023-07-23 11:45] LABS: Bacteria Urine None Seen (None Seen); Hyaline Casts Urine 0-2 /LPF (0-2); RBC Urine 0-2 /HPF (0-2); Squamous Epithelial Cell Urine 0-2 /HPF (0-2); WBC Urine 0-5 /HPF (0-5)
[2023-07-23 12:24] VITALS: BP 159/66; PULSE 54; RESP 15; O2SAT 98
== END 2023-07-23 17:12 | disposition home or self-care (01) ==
PROVIDERS: Emergency Provider Emergency Medicine
DX: M54.9 Dorsalgia, unspecified (principal); R05.9 Cough, unspecified; E11.9 Type 2 diabetes mellitus without complications; R29.6 Repeated falls; Z91.81 History of falling; Z20.822 Contact with and (suspected) exposure to COVID-19; Z20.828 Contact with and (suspected) exposure to other viral communicable diseases; Z79.4 Long term (current) use of insulin; Z79.82 Long term (current) use of aspirin; Z79.899 Other long term (current) drug therapy
CPT/HCPCS: 0241U; 36415; 70450; 70551; 71046; 72072; 72100; 72125; 80048; 80076; 81001; 82803; 83735; 83880; 84484; 85025; 86140; 93005; 96360; 96361; 99284

== ENCOUNTER → 2023-07-23 10:20 | Outpatient (BNV) | payer MEDICARE, MEDICAID, SELFPAY | PROVIDERS: Emergency Provider Emergency Medicine; Visit Provider Internal Medicine Cardiovascular Disease | DX: R53.1 Weakness (principal) | CPT/HCPCS: 93010 ==

== ENCOUNTER 2023-08-06 09:49 | Emergency (ER) | payer MEDICARE, MEDICAID, SELFPAY ==
--- NOTE | ~2023-08-06 | CT_ITS ---
EXAMINATION: CT ABDOMEN AND PELVIS WITHOUT CONTRAST CLINICAL INFORMATION: Diffuse abdominal pain. COMPARISON: 12/26/2019 MRI. TECHNIQUE: Multidetector volumetric imaging was performed from the superior aspect of the liver through the pubic symphysis without contrast per request. Sagittal and coronal reformatted images were obtained on the technologist workstation. This CT examination was performed using dose optimization techniques as appropriate, variously including the following: *Automated exposure control *Adjustment of mA and/or kV according to patient size (this includes techniques or standardized protocols for targeted exams where dose is matched to indication/reason for exam; i.e. extremities or head) *Use of iterative reconstruction technique DLP: 458 mGy-cm. FINDINGS: LUNG BASES: The visualized lung bases are unremarkable. LIVER, GALLBLADDER, BILIARY TREE: The non-contrast liver is normal in size, shape, and attenuation. No focal hepatic lesion or biliary ductal dilatation is present. The gallbladder is unremarkable with no evidence of radiopaque gallstones, gallbladder wall thickening, or obvious pericholecystic inflammatory changes. PANCREAS: Unremarkable. SPLEEN: Unremarkable. ADRENAL GLANDS: Unremarkable. KIDNEYS AND URETERS: The kidneys are normal in size, shape, and attenuation. No hydronephrosis, hydroureter, or perinephric stranding. No calculi. BLADDER: Decompressed GASTROINTESTINAL TRACT: Few scattered colonic diverticula are seen but no colonic wall thickening or pericolonic inflammatory change suggest diverticulitis. Visualized appendix is unremarkable. ABDOMINAL WALL: No significant hernia is appreciated. LYMPHOVASCULAR STRUCTURES: No lymphadenopathy. The aorta is unremarkable.. PELVIC VISCERA: Unremarkable. OSSEUS STRUCTURES: Unremarkable. CT/CT abdomen pelvis wo IV con IMPRESSION: No acute intra-abdominal process seen. Scattered diverticulosis but no evidence for diverticulitis.
--- NOTE | ~2023-08-06 | MR_ITS ---
EXAMINATION: MR LUMBAR SPINE WITHOUT CONTRAST CLINICAL INFORMATION: back pain, unable to ambulate. COMPARISON: None TECHNIQUE: MRI of the lumbar spine was obtained using routine sequences without contrast. FINDINGS: Grade 1 anterolisthesis of L5 on S1. No suspicious marrow signal or focal osseous lesion. No significant marrow edema. The vertebral body heights are maintained. Mild multilevel disc desiccation and mild disc height loss at L5-S1. The conus medullaris terminates at the level of L2-L3. The distal spinal cord is normal in appearance. The cauda equina nerve roots appear normal. No significant abnormalities of the paraspinal musculature. Limited evaluation of the intra-abdominal structures without significant abnormalities. The abdominal aorta is of normal contour and caliber. SPINAL LEVELS: Visualized only on sagittal imaging, shallow disc bulge and facet arthropathy at T11-T12 contributes to suspected mild to moderate central spinal canal stenosis. There is also a shallow disc bulge at T10-T11 without significant canal narrowing. L1-L2: No significant spinal canal or neuroforaminal narrowing. L2-L3: No significant spinal canal or neuroforaminal narrowing. L3-L4: No significant spinal canal or neuroforaminal narrowing. Shallow disc bulge L4-L5: No significant spinal canal or neuroforaminal narrowing. Shallow disc bulge L5-S1: Severe facet arthropathy with small joint effusions, anterolisthesis with posterior disc uncovering and superimposed disc bulge, ligamentum flavum thickening. Moderate central spinal canal stenosis. Bilateral subarticular zone effacement with compression of the traversing S1 nerve roots. Moderate bilateral neural foraminal narrowing with impingement of the exiting L5 nerve roots. MR/MR lumbar spine wo con IMPRESSION: 1. At L5-S1, there is grade 1 anterolisthesis related to advanced facet arthropathy with superimposed disc bulge contributing to moderate spinal canal stenosis, bilateral subarticular zone effacement with compression of the traversing S1 nerve roots, and moderate bilateral neural foraminal narrowing with impingement of the exiting L5 nerve roots. 2. Borderline low positioning of the conus medullaris at the level of L2-L3. 3. Visualized only on sagittal imaging, there is suspected mild to moderate spinal canal stenosis at T11-T12.
[2023-08-06 10:00] VITALS: BP 127/67; PULSE 57; O2SAT 100
[2023-08-06 10:04] VITALS: BP 105/55; PULSE 60; RESP 16; TEMP 36.8; O2SAT 98; BMI 26.6
[2023-08-06 10:46] LABS: Basophils Absolute Auto 0.1 X10*3/uL (0.0-0.2); Basophils Percent Auto 0.9 % (0-2); Eosinophils Percent Auto 0.7 % (0-4); Hematocrit 43.7 % (37.0-47.0); Hemoglobin 13.9 g/dl (12.0-16.0); Imm Gran Abs Auto 0.03 X10*3/uL (0.00-0.03); Imm Gran Pct Auto 0.5 % (0.0-0.4); Lymphocytes Absolute Auto 1.6 X10*3/uL (1.2-4.9); Lymphocytes Percent Auto 27.8 % (20-40); MANUAL DIFF FLAG SCAN; Mean Corpuscular HGB Conc 31.8 g/dl (31.0-35.0); Mean Corpuscular Hemoglobin 25.8 pg (27.0-33.0); Mean Corpuscular Volume 81.2 fL (80.0-98.0); Monocytes Absolute Auto 0.3 X10*3/uL (0.1-1.2); Monocytes Percent Auto 5.8 % (2-11); Neutrophils Absolute Auto 3.7 x10*3/uL (2.0-8.3); Neutrophils Percent Auto 64.3 % (45-73); PLT CLUMP 1; Red Blood Count 5.38 X10*6/uL (4.20-5.50); SCAN SMEAR FLAG 1
[2023-08-06 10:47] LABS: White Blood Count 5.7 X10*3/uL (4.8-10.8)
[2023-08-06 10:50] LABS: Alanine Aminotransferase 10 U/L (0-31); Albumin Level 3.9 g/dL (3.5-5.0); Alkaline Phosphatase 125 U/L (39-117); Anion Gap 11 (12-20); Aspartate Amino Transferase 17 U/L (5-31); Bilirubin Direct 0.2 mg/dL (0.0-0.5); Bilirubin Total 0.5 mg/dL (0.0-1.0); Blood Urea Nitrogen 11 mg/dL (9-16); Calcium 10.9 mg/dL (8.4-10.2); Carbon Dioxide 22 mmol/L (22-29); Chloride 108 mmol/L (96-108); Creatinine Clr Calc Pharmacy 62.8; Estimated Glomerular Filt Rate > 60; Glucose Random 180 mg/dL (60-115); Lipase 13 U/L (8-78); Sodium 137 mmol/L (135-145); Total Protein 6.8 g/dL (6.5-8.0)
[2023-08-06 11:16] LABS: Platelet Count 142 X10*3/uL (160-400); SLIDE REVIEW VERIFIED
[2023-08-06 13:22] LABS: CT PCR NOT DETECTED (Not Detect.); NG PCR NOT DETECTED (Not Detect.)
[2023-08-06 16:06] VITALS: BP 173/75; PULSE 53; RESP 16; TEMP 36.4; O2SAT 100
--- NOTE | 2023-08-06 16:20 | PC.NURSE ---
pt brought in by EMS. pt reports difficulty walking for about one month. she lives with her daughter who helps her. Pt also reports back pain and lower abd pain. Pt reports irritation in her vagina. labs done while wiating in waiting room. Urine sample sent to lab. waiting for provider pick-up
[2023-08-06 16:22] LABS: Appearance Urine Clear; Color Urine Yellow; Glucose Urine UA 100 mg/dL (Negative); Leukocyte Esterase Urine Trace (Negative); Nitrite Urine Negative (Negative); PH 5.5 (5.0-9.0); UMIC TRIGGER UACC YES; Urine Blood Negative (Negative); Urine Ketones Trace mg/dL (Negative); Urine Protein Negative (Neg-Trace)
[2023-08-06 16:27] LABS: Bacteria Urine None Seen (None Seen); Hyaline Casts Urine 0-2 /LPF (0-2); RBC Urine 0-2 /HPF (0-2); UACC Culture Trigger YES
--- NOTE | 2023-08-06 16:32 | ED.GENADULT ---
HPI - General Adult General Chief complaint: Abdominal Pain Stated complaint: ABD PAIN,SEEN RECENTLY PER EMS Time Seen by Provider: 08/06/23 16:25 Source: patient and EMS Mode of arrival: EMS Limitations: no limitations History of Present Illness HPI narrative: A 73-year-old female originally from [facility] [place] came in for evaluation of multiple symptoms. Patient has been having multiple falls lately unable to ambulate unsteady gait as per patient, unable to urinate sometimes, patient has been having low back pain that radiates down to both legs. Patient also had diffuse abdominal pain with nausea but no vomiting normal bowel movement, passing flatus, denies any past surgical history. Related Data Previous Rx's Medication Instructions Recorded aspirin 81 mg tablet,delayed 81 mg PO DAILY #30 tabs 07/18/23 release blood sugar diagnostic (Freestyle #100 ea 07/18/23 In[employer] Test Strips) blood-glucose meter (FreeStyle #1 ea 07/18/23 [place] kit) colchicine 0.6 mg tablet 0.6 mg PO BID PRN pain/gout #14 07/18/23 tabs esomeprazole magnesium 40 mg 40 mg PO DAILY #30 caps 07/18/23 capsule,delayed release ezetimibe 10 mg-rosuvastatin 10 mg 1 tab PO DAILY #30 tabs 07/18/23 tablet (Roszet) glucagon HCl 1 mg solution for 1 mg subcut Q20M PRN hypoglycemia 07/18/23 injection (Glucagon (HCl) #1 ea Emergency Kit) insulin aspart U-100 100 unit/mL 7 unit (0.07 mL) subcut DAILY #15 07/18/23 (3 mL) subcutaneous pen (Novolog mL FlexPen U-100 Insulin aspart) insulin glargine 100 unit/mL (3 16 unit (0.16 mL) subcut QPM #15 mL 07/18/23 mL) subcutaneous pen (Lantus Solostar U-100 Insulin) lancets 28 gauge (FreeStyle #100 ea 07/18/23 Lancets) pregabalin 75 mg capsule 75 mg PO DAILY #30 caps 07/18/23 pregabalin 75 mg capsule 75 mg PO BEDTIME #30 caps 07/23/23 nitrofurantoin 100 mg PO BID #14 caps 08/06/23 monohydrate/macrocrystals 100 mg capsule (Macrobid) Allergies Allergy/AdvReac Type Severity Reaction Status Date / Time IV contrast Allergy Intermediate Rash Uncoded 08/06/23 10:09 IBUProfen Allergy Unknown Rash Uncoded 08/06/23 10:09 Pencillin Allergy Unknown Rash Uncoded 08/06/23 10:09 Review of Systems Review of Systems: All other systems are reviewed and are negative Constitutional: Reports as per HPI and Reports no additional constitutional complaints Eyes: Reports as per HPI and Reports no additional eye complaints Reports system reviewed and no additional complaints, except as documented Cardiovascular: Reports as per HPI and Reports no additional cardiovascular complaints Respiratory: Reports as per HPI and Reports no additional respiratory complaints Gastrointestinal: Reports as per HPI and Reports no additional gastrointestinal complaints Genitourinary: Reports no additional female genitourinary complaints Musculoskeletal: Reports no additional musculoskeletal complaints Skin/Breast: Reports system reviewed and no additional complaints, except as docu Psychiatric: Reports no additional psychiatric complaints Endocrine: Reports no additional endocrine complaints Hematologic/Lymphatic: Reports no additional hematologic/lymphatic complaints Allergic/Immunologic: Reports no additional allergic/immunologic complaints Reports system reviewed and no additional complaints, except as documented and Reports Abnormal speech present [facility] Past Medical History Medical History Type 2 diabetes mellitus Surgical History Hx of hand surgery Social History Social History Smoked in Last 30 Days: No Use of substances other than those prescribed or required for medical reasons: No Advance Directives: No Advance Directives Information Provided: Yes Physical Exam ED Vital Signs: Vital Signs - 24 hr 08/06/23 10:04 08/06/23 16:06 08/06/23 17:36 Temperature 98.2 F 97.6 F Pulse Rate 60 53 52 Respiratory Rate 16 16 16 Blood Pressure 105/55 L 173/75 H 148/64 H Pulse Oximetry 98 100 95 Oxygen Delivery Method Room Air Room Air 08/06/23 19:28 Temperature Pulse Rate 52 Respiratory Rate 18 Blood Pressure 154/62 H Pulse Oximetry 99 Oxygen Delivery Method BMI result Body Mass Index 26.6 Vital signs have been reviewed and appear to be correct. Blood pressure elevated. Heart rate normal. Respiratory rate normal. Temperature normal. Oxygen saturation normal. Appearance: Alert. Oriented X3. No acute distress. Head: Normal external exam. Normocephalic. Atraumatic. No [place] signs noted. No raccoon eyes noted Eyes: PERRLA. EOMI. Conjunctiva and sclera normal. Eyelids normal. ENT: TM's Normal. Pharynx normal. Uvula midline. Moist mucous membranes. No trismus noted. No drooling noted. No muffled voice noted. Neck: Normal inspection. Neck supple. FROM. No adenopathy. Thyroid Normal. No meningeal signs. No neck mass noted. CVS: Normal heart rate and rhythm. Heart sound normal. No murmurs noted. Pulses normal throughout. Respiratory: No respiratory distress. Painless inspiration. Breath sounds normal. No wheezes/rales/rhonchi noted. Chest nontender. No accessory muscle usage noted or decreased air movement noted. Abdomen: Soft and nontender. Bowel sounds normal in all 4 quadrants. No distention noted. No organomegaly noted. No visible injury noted. Back: No CVA tenderness. Full range of motion noted. Skin: Skin warm and dry. Normal skin color. Normal skin turgor. No rashes/lesions/lacerations noted. Extremities: No lower extremity edema. Extremities exhibit normal range of motion. Extremities nontender. Neuro: Oriented X 3. Cranial nerve exam: II-XII are grossly intact No motor deficit. No sensory deficit. Reflexes normal. Course Reevaluation(s) Reevaluation #1: 1. Back pain patient is reporting difficulty ambulating MRI of lumbar spine showing no acute space-occupying mass in the lumbar spine. With chronic S1 nerve root compression and L5 nerve root due to neural foraminal narrowing will have the patient to follow with neurosurgery . No acute nerve compression, patient is able to ambulate in the emergency department no urinary incontinence. 2. Vaginal discharge and itching pelvic exam was unremarkable very mild UTI will start the patient on Macrobid. 3. abdominal pain had CT of the abdomen pelvis which is unremarkable for intra-abdominal pathology. Patient was instructed to follow-up with her PCP. Time: 21:21 Medical Decision Making Differential Diagnosis Differential Diagnoses: The differential diagnosis associated with the presentation includes (Diverticulitis, colitis, acute appendicitis, electrolyte abnormality, severe anemia, UTI, spinal cord compression.) Admission/Observation Consideration of admission/observation: Escalation of care including admission/observation considered Lab Data MDM Lab Attestation statement: I reviewed the patient's lab results. 08/06/23 10:30 08/06/23 10:30 Labs: Lab Results 08/06/23 08/06/23 08/06/23 Range/Units 10:30 11:37 16:14 WBC 5.7 (4.8-10.8) X10*3/uL RBC 5.38 (4.20-5.50) X10*6/uL Hgb 13.9 (12.0-16.0) g/dl Hct 43.7 (37.0-47.0) % MCV 81.2 (80.0-98.0) fL MCH 25.8 L (27.0-33.0) pg MCHC 31.8 (31.0-35.0) g/dl RDW 16.0 (11.0-16.0) % Plt Count 142 L (160-400) X10*3/uL MPV Not Reportable Immature Gran % (Auto) 0.5 H (0.0-0.4) % Neut % (Auto) 64.3 (45-73) % Lymph % (Auto) 27.8 (20-40) % [place] % (Auto) 5.8 (2-11) % Eos % (Auto) 0.7 (0-4) % Baso % (Auto) 0.9 (0-2) % Lymph # (Auto) 1.6 (1.2-4.9) X10*3/uL [place] # (Auto) 0.3 (0.1-1.2) X10*3/uL Eos # (Auto) 0.0 (0.0-0.4) X10*3/uL Baso # (Auto) 0.1 (0.0-0.2) X10*3/uL Abs Immat Gran (auto) 0.03 (0.00-0.03) X10*3/uL Absolute Neuts (auto) 3.7 (2.0-8.3) x10*3/uL Absolute Nucleated RBC 0.000 (0.0-0.012) X10*3/uL Nucleated RBC % (auto) 0.0 (0.0-0.2) /100WBC Smear Tech's Comments VERIFIED Sodium 137 (135-145) mmol/L Potassium 4.0 (3.3-5.1) mmol/L Chloride 108 (96-108) mmol/L Carbon Dioxide 22 (22-29) mmol/L Anion Gap 11 L (12-20) BUN 11 (9-16) mg/dL Creatinine 0.76 (0.5-1.4) mg/dL Estim Creat Clear Calc 62.8 Estimated GFR > 60 POC Glucose (60-115) mg/dL Random Glucose 180 H (60-115) mg/dL Calcium 10.9 H (8.4-10.2) mg/dL Total Bilirubin 0.5 (0.0-1.0) mg/dL Direct Bilirubin 0.2 (0.0-0.5) mg/dL AST 17 (5-31) U/L ALT 10 (0-31) U/L Alkaline Phosphatase 125 H (39-117) U/L Total Protein 6.8 (6.5-8.0) g/dL Albumin 3.9 (3.5-5.0) g/dL Lipase 13 (8-78) U/L Urine Color Yellow Urine Appearance Clear Urine pH 5.5 (5.0-9.0) Ur Specific [place] 1.020 (1.005-1.025) Urine Protein Negative (Neg-Trace) mg/dL Urine Glucose (UA) 100 H (Negative) mg/dL Urine Ketones Trace (Negative) mg/dL Urine Blood Negative (Negative) Urine Nitrite Negative (Negative) Ur Leukocyte Esterase Trace H (Negative) Urine RBC 0-2 (0-2) /HPF Urine WBC 6-10 H (0-5) /HPF Ur Squamous Epith Cells 3-5 (0-2) /HPF Urine Bacteria None Seen (None Seen) Hyaline Casts 0-2 (0-2) /LPF Chlam trachomat DNA PCR NOT DETECTED (Not Detect.) N.gonorrhoeae DNA (PCR) NOT DETECTED (Not Detect.) 08/06/23 Range/Units 20:44 WBC (4.8-10.8) X10*3/uL RBC (4.20-5.50) X10*6/uL Hgb (12.0-16.0) g/dl Hct (37.0-47.0) % MCV (80.0-98.0) fL MCH (27.0-33.0) pg MCHC (31.0-35.0) g/dl RDW (11.0-16.0) % Plt Count (160-400) X10*3/uL MPV Immature Gran % (Auto) (0.0-0.4) % Neut % (Auto) (45-73) % Lymph % (Auto) (20-40) % [place] % (Auto) (2-11) % Eos % (Auto) (0-4) % Baso % (Auto) (0-2) % Lymph # (Auto) (1.2-4.9) X10*3/uL [place] # (Auto) (0.1-1.2) X10*3/uL Eos # (Auto) (0.0-0.4) X10*3/uL Baso # (Auto) (0.0-0.2) X10*3/uL Abs Immat Gran (auto) (0.00-0.03) X10*3/uL Absolute Neuts (auto) (2.0-8.3) x10*3/uL Absolute Nucleated RBC (0.0-0.012) X10*3/uL Nucleated RBC % (auto) (0.0-0.2) /100WBC Smear Tech's Comments Sodium (135-145) mmol/L Potassium (3.3-5.1) mmol/L Chloride (96-108) mmol/L Carbon Dioxide (22-29) mmol/L Anion Gap (12-20) BUN (9-16) mg/dL Creatinine (0.5-1.4) mg/dL Estim Creat Clear Calc Estimated GFR POC Glucose 152 H (60-115) mg/dL Random Glucose (60-115) mg/dL Calcium (8.4-10.2) mg/dL Total Bilirubin (0.0-1.0) mg/dL Direct Bilirubin (0.0-0.5) mg/dL AST (5-31) U/L ALT (0-31) U/L Alkaline Phosphatase (39-117) U/L Total Protein (6.5-8.0) g/dL Albumin (3.5-5.0) g/dL Lipase (8-78) U/L Urine Color Urine Appearance Urine pH (5.0-9.0) Ur Specific [place] (1.005-1.025) Urine Protein (Neg-Trace) mg/dL Urine Glucose (UA) (Negative) mg/dL Urine Ketones (Negative) mg/dL Urine Blood (Negative) Urine Nitrite (Negative) Ur Leukocyte Esterase (Negative) Urine RBC (0-2) /HPF Urine WBC (0-5) /HPF Ur Squamous Epith Cells (0-2) /HPF Urine Bacteria (None Seen) Hyaline Casts (0-2) /LPF Chlam trachomat DNA PCR (Not Detect.) N.gonorrhoeae DNA (PCR) (Not Detect.) Independent Interpretation I performed an independent interpretation of an: CT Scan (Abdomen and pelvis: No acute intra-abdominal process seen.) Radiology Impression Discussion of test interpretation with radiology: I have reviewed the radiologist's reading. Discharge Plan Discharge Clinical Impression: Acute UTI, Abdominal pain, Back pain Patient Disposition: Home, Self-Care Instructions: Urinary Tract Infection in Women (ED) Prescriptions: New nitrofurantoin monohyd/m-cryst [Macrobid] 100 mg capsule 100 mg PO BID Qty: 14 0RF Rx Instructions: must administer with a meal/food No Action colchicine 0.6 mg tablet 0.6 mg PO BID PRN (Reason: pain/gout) Qty: 14 0RF pregabalin 75 mg capsule 75 mg PO DAILY Qty: 30 1RF aspirin 81 mg tablet,delayed release (DR/EC) 81 mg PO DAILY Qty: 30 1RF ezetimibe-rosuvastatin [Roszet] 10-10 mg tablet 1 tab PO DAILY Qty: 30 1RF esomeprazole magnesium 40 mg capsule,delayed release(DR/EC) 40 mg PO DAILY Qty: 30 1RF insulin glargine [Lantus Solostar U-100 Insulin] 100 unit/mL (3 mL) insulin pen 16 unit subcut QPM Qty: 15 0RF insulin aspart U-100 [Novolog FlexPen U-100 Insulin] 100 unit/mL (3 mL) insulin pen 7 unit subcut DAILY Qty: 15 0RF (DME) blood-glucose meter [FreeStyle [place]] Kit See Rx Instructions .Route Qty: 1 0RF Rx Instructions: As directed (DME) Freestyle [employer] Test Strips Strip See Rx Instructions .Route Qty: 100 0RF Rx Instructions: As directed (DME) lancets [FreeStyle Lancets] 28 gauge misc See Rx Instructions .Route Qty: 100 0RF Rx Instructions: As directed glucagon HCl [Glucagon (HCl) Emergency Kit] 1 mg recon soln 1 mg subcut Q20M PRN (Reason: hypoglycemia) Qty: 1 0RF Rx Instructions: until target blood sugar attained pregabalin 75 mg capsule 75 mg PO BEDTIME Qty: 30 0RF Referrals: [facility] [Primary Care Provider] - Noni Plummer MD [Physician] -
[2023-08-06 17:36] VITALS: BP 148/64; PULSE 52; RESP 16; O2SAT 95
--- NOTE | 2023-08-06 17:41 | PC.NURSE ---
MRI screening form done, MRI came to [facility] patient
--- NOTE | 2023-08-06 19:25 | PC.NURSE ---
Assumed care of pt at 1930. Pt lying on stretcher, no acute distress at this time. Pt stated that she returned from [facility] approx 2 weeks [employer], and had incident in [facility] where she experienced a fall, had vision changes, and sts multiple MD's there told her there was nothing wrong, with one MD suggesting she needed injections in her eyes, but her daughter refused. Pt currently endorsing difficulty ambulating, generalized weakness, lower banded abdominal pain. VSS at this time.
[2023-08-06 19:28] VITALS: BP 154/62; PULSE 52; RESP 18; O2SAT 99
[2023-08-06 20:47] LABS: Glucose, Whole Blood 152 mg/dL (60-115)
[2023-08-06 21:36] VITALS: BP 152/62; PULSE 57; RESP 18; O2SAT 98
== END 2023-08-06 21:37 | disposition home or self-care (01) ==
PROVIDERS: Emergency Provider Emergency Medicine
DX: N39.0 Urinary tract infection, site not specified (principal); R10.2 Pelvic and perineal pain; R33.9 Retention of urine, unspecified; R26.81 Unsteadiness on feet; M54.50 Low back pain, unspecified; Z79.899 Other long term (current) drug therapy
CPT/HCPCS: 0353U; 36415; 72148; 74176; 80048; 80076; 81001; 82947; 83690; 85025; 87086; 99284; 99285

== ENCOUNTER 2023-09-11 16:07 | Emergency (ER) | payer MEDICARE, MEDICAID, SELFPAY ==
--- NOTE | 2023-09-11 16:31 | ED_ITS ---
HPI - General Adult General Chief complaint: General Medical Stated complaint: FEELS SICK SINCE COMING FROM [place],BODY PAIN Time Seen by Provider: 09/11/23 16:30 Source: patient Mode of arrival: ambulatory Limitations: no limitations History of Present Illness HPI narrative: Patient diabetic, anxiety , arthritis, GERD came back from [facility] after 3 years of stay in 07/30 been here 3 times for multiple complaints does not have any PCP. Comes here for multiple complaints body aches back pain chest pain belly pain last 4 days blood sugar was 350 on insulin and metformin also does have anxiety no fever no nausea no vomiting Related Data Previous Rx's Medication Instructions Recorded aspirin 81 mg tablet,delayed 81 mg PO DAILY #30 tabs 07/18/23 release blood sugar diagnostic (Freestyle #100 ea 07/18/23 [employer] Test Strips) blood-glucose meter (FreeStyle #1 ea 07/18/23 Lewellen kit) colchicine 0.6 mg tablet 0.6 mg PO BID PRN pain/gout #14 07/18/23 tabs esomeprazole magnesium 40 mg 40 mg PO DAILY #30 caps 07/18/23 capsule,delayed release ezetimibe 10 mg-rosuvastatin 10 mg 1 tab PO DAILY #30 tabs 07/18/23 tablet (Roszet) glucagon HCl 1 mg solution for 1 mg subcut Q20M PRN hypoglycemia 07/18/23 injection (Glucagon (HCl) #1 ea Emergency Kit) insulin aspart U-100 100 unit/mL 7 unit (0.07 mL) subcut DAILY #15 07/18/23 (3 mL) subcutaneous pen (Novolog mL FlexPen U-100 Insulin aspart) insulin glargine 100 unit/mL (3 16 unit (0.16 mL) subcut QPM #15 mL 07/18/23 mL) subcutaneous pen (Lantus Solostar U-100 Insulin) lancets 28 gauge (FreeStyle #100 ea 07/18/23 Lancets) pregabalin 75 mg capsule 75 mg PO DAILY #30 caps 07/18/23 pregabalin 75 mg capsule 75 mg PO BEDTIME #30 caps 07/23/23 nitrofurantoin 100 mg PO BID #14 caps 08/06/23 monohydrate/macrocrystals 100 mg capsule (Macrobid) aspirin 81 mg tablet,delayed 81 mg PO DAILY #90 tabs 09/11/23 release (Adult Low Dose Aspirin) ezetimibe 10 mg-rosuvastatin 10 mg 1 tab PO DAILY #90 tabs 09/11/23 tablet insulin aspart U-100 100 unit/mL 8 unit (0.08 mL) subcut BID #15 mL 09/11/23 (3 mL) subcutaneous pen (Novolog FlexPen U-100 Insulin aspart) insulin glargine 100 unit/mL (3 20 unit (0.2 mL) subcut QPM #15 mL 09/11/23 mL) subcutaneous pen (Lantus Solostar U-100 Insulin) pantoprazole 40 mg tablet,delayed 40 mg PO DAILY #90 tabs 09/11/23 release (Protonix) pregabalin 75 mg capsule 75 mg PO DAILY #90 caps 09/11/23 sucralfate 1 gram tablet 1 g PO BID #180 tabs 09/11/23 Allergies Allergy/AdvReac Type Severity Reaction Status Date / Time IV contrast Allergy Intermediate Rash Uncoded 08/06/23 10:09 IBUProfen Allergy Unknown Rash Uncoded 08/06/23 10:09 Pencillin Allergy Unknown Rash Uncoded 08/06/23 10:09 Review of Systems 2 Review of Systems: Yes all other systems are reviewed and are negative [facility] Past Medical History Medical History (Updated 09/11/23 @ 19:51 by Juan M Martínez MD) Arthritis Anxiety GERD (gastroesophageal reflux disease) Type 2 diabetes mellitus Surgical History Hx of hand surgery Social History Social History Smoked in Last 30 Days: No Use of substances other than those prescribed or required for medical reasons: No Advance Directives: No Advance Directives Information Provided: No Physical Exam ED Vital Signs: Vital Signs - 24 hr 09/11/23 16:32 09/11/23 19:10 09/11/23 20:24 Temperature 97.6 F 98.0 F Pulse Rate 54 52 52 Respiratory Rate 16 12 16 Blood Pressure 119/52 L 107/82 162/82 H Pulse Oximetry 99 100 98 Oxygen Delivery Method Room Air Room Air Room Air BMI result Body Mass Index 28.1 Appearance: Alert. Oriented X3. No acute distress. Eyes: PERRLA, No Nystagmus ENT: Pharynx normal. Oral Mucosa moist Neck: Normal inspection. Neck supple. CVS: Normal heart rate and rhythm. Pulses normal. Respiratory: No respiratory distress. Equal air entry bilateral, no wheezing/rales/rhonchi Abdomen: Soft and nontender. Bowel sounds are present, no mass palpable, no CVA tenderness Skin: Skin warm and dry. Normal skin color. Normal skin turgor. Extremities: No lower extremity edema. No calf tenderness Neuro: Oriented X 3. No motor deficit. No sensory deficit.No cerebellar signs , cranial nerves II-XII intact Medications Administered Discontinued Medications Generic Name Dose Route Start Last Admin Trade Name Freq PRN Reason Stop Dose Admin Insulin Glargine 20 unit 09/11/23 19:26 09/11/23 19:50 Insulin Glargine,Hum.Rec.Anlog 100 Unit/Ml 10 Ml Vial SUBCUT 09/11/23 19:27 20 unit ONCE ONE Administration Insulin Human Lispro 6 unit 09/11/23 19:26 09/11/23 19:50 Insulin Lispro 100 Unit/Ml 3 Ml Vial SUBCUT 09/11/23 19:27 6 unit ONCE ONE Administration Tramadol HCl 50 mg 09/11/23 17:21 09/11/23 17:59 Tramadol Hcl 50 Mg Tablet PO 09/11/23 17:22 50 mg ONCE ONE Administration Medical Decision Making Medical Decision Making [facility] Narrative: Patient has uncontrolled diabetes with multiple body aches workup is negative will discharge patient home advised to continue take her Lantus increase the dose to 20 units and increase dose of Humalog twice daily Differential Diagnosis Differential Diagnoses: The differential diagnosis associated with the presentation includes Hyperglycemia/neuropathy/rhabdomyolysis/anxiety Lab Data [facility] Lab Attestation statement: I reviewed the patient's lab results. 09/11/23 17:45 09/11/23 17:45 Labs: Lab Results 09/11/23 09/11/23 09/11/23 Range/Units 16:24 17:45 18:02 WBC 5.8 (4.8-10.8) X10*3/uL RBC 5.03 (4.20-5.50) X10*6/uL Hgb 13.2 (12.0-16.0) g/dl Hct 41.5 (37.0-47.0) % MCV 82.5 (80.0-98.0) fL MCH 26.2 L (27.0-33.0) pg MCHC 31.8 (31.0-35.0) g/dl RDW 15.4 (11.0-16.0) % Plt Count 126 L (160-400) X10*3/uL MPV Not Reportable Immature Gran % (Auto) 0.2 (0.0-0.4) % Neut % (Auto) 53.4 (45-73) % Lymph % (Auto) 37.8 (20-40) % [place] % (Auto) 7.1 (2-11) % Eos % (Auto) 1.0 (0-4) % Baso % (Auto) 0.5 (0-2) % Lymph # (Auto) 2.2 (1.2-4.9) X10*3/uL [place] # (Auto) 0.4 (0.1-1.2) X10*3/uL Eos # (Auto) 0.1 (0.0-0.4) X10*3/uL Baso # (Auto) 0.0 (0.0-0.2) X10*3/uL Abs Immat Gran (auto) 0.01 (0.00-0.03) X10*3/uL Absolute Neuts (auto) 3.1 (2.0-8.3) x10*3/uL Absolute Nucleated RBC 0.000 (0.0-0.012) X10*3/uL Nucleated RBC % (auto) 0.0 (0.0-0.2) /100WBC Smear Tech's Comments VERIFIED ESR 6 (0-20) MM/HR Sodium 138 (135-145) mmol/L Potassium 4.8 (3.3-5.1) mmol/L Chloride 106 (96-108) mmol/L Carbon Dioxide 25 (22-29) mmol/L Anion Gap 12 (12-20) BUN 11 (9-16) mg/dL Creatinine 0.86 (0.5-1.4) mg/dL Estim Creat Clear Calc 54.8 Estimated GFR > 60 POC Glucose 315 H (60-115) mg/dL Random Glucose 313 H (60-115) mg/dL Estimat Average Glucose 315 mg/dL Hemoglobin A1c % 12.6 H (<6.0) % Calcium 10.9 H (8.4-10.2) mg/dL Total Bilirubin 0.2 (0.0-1.0) mg/dL AST 11 (5-31) U/L ALT 10 (0-31) U/L Alkaline Phosphatase 152 H (39-117) U/L Total Creatine Kinase 14 L (26-140) U/L C-Reactive Protein 0.31 (< or = 0.50) mg/dL Total Protein 6.6 (6.5-8.0) g/dL Albumin 3.7 (3.5-5.0) g/dL Urine Color Yellow Urine Appearance Clear Urine pH 6.5 (5.0-9.0) Ur Specific [place] >= 1.030 H (1.005-1.025) Urine Protein Negative (Neg-Trace) mg/dL Urine Glucose (UA) >=1000 H (Negative) mg/dL Urine Ketones Negative (Negative) mg/dL Urine Blood Negative (Negative) Urine Nitrite Negative (Negative) Ur Leukocyte Esterase Negative (Negative) Urine RBC 0-2 (0-2) /HPF Urine WBC 0-5 (0-5) /HPF Ur Squamous Epith Cells 0-2 (0-2) /HPF Urine Bacteria None Seen (None Seen) Hyaline Casts 0-2 (0-2) /LPF Discharge Plan Discharge Clinical Impression: Type 2 diabetes mellitus Patient Disposition: Home, Self-Care Instructions: Gastroesophageal Reflux Disease (ED), Type 2 Diabetes in the Older Adult (ED) Additional Instructions: Increase the dose of your Lantus to 20 units in the nighttime Continue your NovoLog insulin and metformin Drink plenty of water Take Protonix and sucralfate as advised for your gastric reflux Tramadol for chronic pain See your PCP Prescriptions: New ezetimibe-rosuvastatin 10-10 mg tablet 1 tab PO DAILY Qty: 90 3RF insulin aspart U-100 [Novolog FlexPen U-100 Insulin] 100 unit/mL (3 mL) insulin pen 8 unit subcut BID Qty: 15 3RF pregabalin 75 mg capsule 75 mg PO DAILY Qty: 90 3RF pantoprazole [Protonix] 40 mg tablet,delayed release (DR/EC) 40 mg PO DAILY Qty: 90 3RF sucralfate 1 gram tablet 1 g PO BID Qty: 180 3RF aspirin [Adult Low Dose Aspirin] 81 mg tablet,delayed release (DR/EC) 81 mg PO DAILY Qty: 90 3RF insulin glargine [Lantus Solostar U-100 Insulin] 100 unit/mL (3 mL) insulin pen 20 unit subcut QPM Qty: 15 3RF No Action colchicine 0.6 mg tablet 0.6 mg PO BID PRN (Reason: pain/gout) Qty: 14 0RF pregabalin 75 mg capsule 75 mg PO DAILY Qty: 30 1RF aspirin 81 mg tablet,delayed release (DR/EC) 81 mg PO DAILY Qty: 30 1RF ezetimibe-rosuvastatin [Roszet] 10-10 mg tablet 1 tab PO DAILY Qty: 30 1RF esomeprazole magnesium 40 mg capsule,delayed release(DR/EC) 40 mg PO DAILY Qty: 30 1RF insulin glargine [Lantus Solostar U-100 Insulin] 100 unit/mL (3 mL) insulin pen 16 unit subcut QPM Qty: 15 0RF insulin aspart U-100 [Novolog FlexPen U-100 Insulin] 100 unit/mL (3 mL) insulin pen 7 unit subcut DAILY Qty: 15 0RF (DME) blood-glucose meter [FreeStyle Lewellen] Kit See Rx Instructions .Route Qty: 1 0RF Rx Instructions: As directed (DME) Freestyle [employer] Test Strips Strip See Rx Instructions .Route Qty: 100 0RF Rx Instructions: As directed (DME) lancets [FreeStyle Lancets] 28 gauge misc See Rx Instructions .Route Qty: 100 0RF Rx Instructions: As directed glucagon HCl [Glucagon (HCl) Emergency Kit] 1 mg recon soln 1 mg subcut Q20M PRN (Reason: hypoglycemia) Qty: 1 0RF Rx Instructions: until target blood sugar attained pregabalin 75 mg capsule 75 mg PO BEDTIME Qty: 30 0RF nitrofurantoin monohyd/m-cryst [Macrobid] 100 mg capsule 100 mg PO BID Qty: 14 0RF Rx Instructions: must administer with a meal/food Referrals: Peg Zambrano MD [Physician] - 1 week Interventions: ED Discharge Assessment Last Done: 09/11/23 21:51 Discharge Date/Time: 09/11/23 21:52
[2023-09-11 16:32] VITALS: BP 119/52; BP 138/92; PULSE 54; PULSE 58; RESP 16; TEMP 36.4; O2SAT 100; O2SAT 99; BMI 28.1
[2023-09-11 16:35] LABS: Glucose, Whole Blood 315 mg/dL (60-115)
--- NOTE | 2023-09-11 16:40 | MHC.EDTECH ---
Patient ekg taken at 1636 ,And was read by Provider ,Patient was hooked up to salvager .
--- NOTE | 2023-09-11 16:43 | ECG_ITS ---
Test Reason : CHEST PAIN Blood Pressure : / mmHG Vent. Rate : 054 BPM Atrial Rate : 054 BPM P-R Int : 162 ms QRS Dur : 070 ms QT Int : 380 ms P-R-T Axes : 043 007 057 degrees QTc Int : 360 ms Artifact in tracing Sinus bradycardia Increased R/S ratio in V1, consider early transition or posterior infarct Abnormal ECG When compared with ECG of 23-JUL-2023 10:28, No significant change was found Referred By: Juan M Martínez Electronically Signed By:JUNE CAR
--- NOTE | 2023-09-11 17:08 | PC.NURSE ---
pt a&o x4, pleasant, calm, and cooperative. pt comes from home for sob that started last night and head, abdomen, and chest pain that has been ongoing for 4 days. pt does not appear to be in any distress. pt blood glucose elevated belt loop cutter, checked on arrival. poc 315. pt changed over to hospital attire, placed on bedside monitor, and EKG obtained. call brown within pt reach. rr even/unlabored. plan of care ongoing.
[2023-09-11 17:58] LABS: Estimated Average Glucose 315 mg/dL; Hemoglobin A1c % 12.6 % (<6.0)
[2023-09-11] MEDS: traMADoL HCL 50 MG TABLET PO (17:59)
[2023-09-11 18:04] LABS: Alanine Aminotransferase 10 U/L (0-31); Albumin Level 3.7 g/dL (3.5-5.0); Alkaline Phosphatase 152 U/L (39-117); Anion Gap 12 (12-20); Aspartate Amino Transferase 11 U/L (5-31); Bilirubin Total 0.2 mg/dL (0.0-1.0); Blood Urea Nitrogen 11 mg/dL (9-16); C Reactive Protein 0.31 mg/dL (< or = 0.50); Calcium 10.9 mg/dL (8.4-10.2); Carbon Dioxide 25 mmol/L (22-29); Chloride 106 mmol/L (96-108); Creatinine Clr Calc Pharmacy 54.8; Estimated Glomerular Filt Rate > 60; Glucose Random 313 mg/dL (60-115); Potassium 4.8 mmol/L (3.3-5.1); Sodium 138 mmol/L (135-145); Total Protein 6.6 g/dL (6.5-8.0)
[2023-09-11 18:26] LABS: Basophils Percent Auto 0.5 % (0-2); Eosinophils Absolute Auto 0.1 X10*3/uL (0.0-0.4); Hematocrit 41.5 % (37.0-47.0); Hemoglobin 13.2 g/dl (12.0-16.0); Imm Gran Abs Auto 0.01 X10*3/uL (0.00-0.03); Imm Gran Pct Auto 0.2 % (0.0-0.4); Lymphocytes Absolute Auto 2.2 X10*3/uL (1.2-4.9); Lymphocytes Percent Auto 37.8 % (20-40); MANUAL DIFF FLAG SCAN; Mean Corpuscular HGB Conc 31.8 g/dl (31.0-35.0); Mean Corpuscular Hemoglobin 26.2 pg (27.0-33.0); Mean Corpuscular Volume 82.5 fL (80.0-98.0); Monocytes Absolute Auto 0.4 X10*3/uL (0.1-1.2); Monocytes Percent Auto 7.1 % (2-11); Neutrophils Absolute Auto 3.1 x10*3/uL (2.0-8.3); Neutrophils Percent Auto 53.4 % (45-73); PLT CLUMP 1; Red Blood Count 5.03 X10*6/uL (4.20-5.50); Red Cell Distribution Width 15.4 % (11.0-16.0); SCAN SMEAR FLAG 1
[2023-09-11 18:28] LABS: Platelet Count 126 X10*3/uL (160-400); White Blood Count 5.8 X10*3/uL (4.8-10.8)
[2023-09-11 18:30] LABS: Appearance Urine Clear; Color Urine Yellow; Glucose Urine UA >=1000 mg/dL (Negative); Leukocyte Esterase Urine Negative (Negative); Nitrite Urine Negative (Negative); PH 6.5 (5.0-9.0); Specific Gravity - Urine >= 1.030 (1.005-1.025); UMIC TRIGGER UACC YES; Urine Blood Negative (Negative); Urine Ketones Negative (Negative); Urine Protein Negative (Neg-Trace)
[2023-09-11 18:33] LABS: Erythrocyte Sedimentation Rate 6 MM/HR (0-20)
[2023-09-11 18:34] LABS: SLIDE REVIEW VERIFIED
[2023-09-11 18:44] LABS: Bacteria Urine None Seen (None Seen); Hyaline Casts Urine 0-2 /LPF (0-2); RBC Urine 0-2 /HPF (0-2); Squamous Epithelial Cell Urine 0-2 /HPF (0-2); UACC Culture Trigger YES
--- NOTE | 2023-09-11 18:53 | PC.NURSE ---
pt provided with diet home steve per Dr. Martínez. pt standby assist to the commode.
[2023-09-11 18:55] LABS: WBC Urine 0-5 /HPF (0-5)
[2023-09-11 19:10] VITALS: BP 107/82; PULSE 52; RESP 12; TEMP 36.7; O2SAT 100
[2023-09-11] MEDS: Insulin Lispro 100 UNIT/ML 3 ML VIAL 6 UNIT SUBCUT (19:50)
[2023-09-11] MEDS: Insulin Glargine,Hum.rec.anlog 100 UNIT/ML 10 ML VIAL 20 UNIT SUBCUT (19:50)
[2023-09-11 20:24] VITALS: BP 162/82; PULSE 52; RESP 16; O2SAT 98
== END 2023-09-11 21:52 | disposition home or self-care (01) ==
PROVIDERS: Emergency Provider Internal Medicine
DX: M79.10 Myalgia, unspecified site (principal); R07.89 Other chest pain; E11.9 Type 2 diabetes mellitus without complications; Z79.899 Other long term (current) drug therapy
CPT/HCPCS: 36415; 80053; 81001; 82550; 82947; 83036; 85025; 85652; 86140; 87086; 93005; 99283; 99285

== ENCOUNTER → 2023-09-11 16:43 | Outpatient (BNV) | payer MEDICARE, MEDICAID, SELFPAY | PROVIDERS: Emergency Provider Internal Medicine; Visit Provider Internal Medicine | DX: R00.1 Bradycardia, unspecified (principal) | CPT/HCPCS: 93010 ==

== ENCOUNTER 2023-09-30 08:25 | Outpatient (REF) | payer MEDICARE, MEDICAID, SELFPAY ==
[2023-09-30 14:25] LABS: Appearance Urine Clear; Color Urine Yellow; Glucose Urine UA >=1000 mg/dL (Negative); Leukocyte Esterase Urine Negative (Negative); Nitrite Urine Negative (Negative); PH 5.5 (5.0-9.0); Specific Gravity - Urine 1.025 (1.005-1.025); UMIC TRIGGER UACC YES; Urine Blood Negative (Negative); Urine Ketones Negative (Negative); Urine Protein Trace mg/dL (Neg-Trace)
[2023-09-30 14:37] LABS: Bacteria Urine None Seen (None Seen); Hyaline Casts Urine 0-2 /LPF (0-2); RBC Urine 0-2 /HPF (0-2); Squamous Epithelial Cell Urine 0-2 /HPF (0-2); WBC Urine 0-5 /HPF (0-5)
[2023-09-30 14:47] LABS: Cholesterol 168 mg/dL (<200); HDL Cholesterol 43 mg/dL (>40); LDL Cholesterol Calculated 89 mg/dL (<100); Triglycerides 182 mg/dL (<150)
== END 2023-09-30 08:26 | disposition home or self-care (01) ==
LOC: HO.CHCLDS 08:25
PROVIDERS: Visit Provider Pediatrics
DX: E11.69 Type 2 diabetes mellitus with other specified complication (principal); N30.00 Acute cystitis without hematuria; Z79.4 Long term (current) use of insulin
CPT/HCPCS: 36415; 80061; 81001

== ENCOUNTER 2023-11-05 14:58 | Emergency (ER) | payer MEDICARE, MEDICAID, SELFPAY ==
--- NOTE | 2023-11-05 | ECG_ITS ---
Test Reason : CHEST PAIN Blood Pressure : / mmHG Vent. Rate : 060 BPM Atrial Rate : 060 BPM P-R Int : 166 ms QRS Dur : 070 ms QT Int : 386 ms P-R-T Axes : 045 007 050 degrees QTc Int : 386 ms Normal sinus rhythm Normal ECG When compared with ECG of 11-SEP-2023 16:36, No significant change was found Referred By: Generic ED Physician Electronically Signed By:Roshan Ramsey
--- NOTE | ~2023-11-05 | CT_ITS ---
EXAMINATION: CT ABDOMEN AND PELVIS WITHOUT CONTRAST CLINICAL INFORMATION: Right lower quadrant pain. COMPARISON: CT abdomen and pelvis 08/06/2020 TECHNIQUE: Multidetector volumetric imaging was performed from the superior aspect of the liver through the pubic symphysis. Sagittal and coronal reformatted images were obtained on the technologist's workstation. Patient is allergic to IV contrast. This CT examination was performed using dose optimization techniques as appropriate, variously including the following: *Automated exposure control *Adjustment of mA and/or kV according to patient size (this includes techniques or standardized protocols for targeted exams where dose is matched to indication/reason for exam; i.e. extremities or head) *Use of iterative reconstruction technique DLP: 486 mGy-cm FINDINGS: LUNG BASES: The lung bases are clear. The heart size is normal. LIVER, GALLBLADDER, AND BILIARY TREE: The liver is normal in size, shape, and attenuation. No focal hepatic lesion or biliary ductal dilatation is present. The gallbladder is unremarkable with no evidence of radiopaque gallstones, gallbladder wall thickening, or obvious pericholecystic inflammatory changes. PANCREAS: Unremarkable. SPLEEN: Unremarkable. ADRENAL GLANDS: Unremarkable. KIDNEYS AND URETERS: The kidneys are normal in size, shape, and attenuation. No hydronephrosis, hydroureter, or calculi seen. No perinephric stranding. BLADDER: Unremarkable. GASTROINTESTINAL TRACT: There is moderate scattered stool, few diverticuli and gas seen throughout the colon without significant distention. The small bowel loops are normal caliber. Appendix is normal caliber. The stomach is nondistended with mild thickening. No free air or free fluid seen. ABDOMINAL WALL: No significant hernia is appreciated. LYMPH NODES: Normal. VASCULAR: Unremarkable. PELVIC VISCERA: The uterus is anteverted with punctate calcification in the fundus. No adnexal mass seen. There is minimal fluid in the right cul-de-sac on axial image 65/3. OSSEOUS STRUCTURES: There is grade 1 anterolisthesis L5-S1 with mild degenerative disc changes with disc bulge L5-S1 disc level. No aggressive lytic or sclerotic process seen. CT/CT abdomen pelvis wo IV con IMPRESSION: No acute intra-abdominal process seen. Mild constipation. Minimal diverticulosis. No evidence of diverticulitis. Nonspecific tiny fluid in cul-de-sac similar to previous study. Fleischner guidelines were followed.
--- NOTE | ~2023-11-05 | XR_ITS ---
EXAMINATION: CHEST 2 VIEWS CLINICAL INFORMATION: chest pain. COMPARISON: 07/23/2023. TECHNIQUE: PA and lateral views of the chest obtained. FINDINGS: The lungs are well expanded. No focal infiltrate, effusion, edema, or pneumothorax. Cardiac and mediastinal silhouettes are within normal limits for technique. No acute bony abnormality seen XR/XR chest 2V IMPRESSION: No evidence of acute disease
[2023-11-05 15:12] VITALS: BP 154/68; PULSE 64; O2SAT 99; BMI 28.0
[2023-11-05 15:35] VITALS: BP 121/61; PULSE 60; RESP 16; TEMP 36.6; O2SAT 98
--- NOTE | 2023-11-05 15:53 | ED_ITS ---
HPI - Chest Pain General Chief Complaint: Chest Pain Stated Complaint: CHEST PAIN ABD PAIN Time Seen by Provider: 11/05/23 15:49 Source: patient and EMS Mode of arrival: EMS Limitations: no limitations History of Present Illness HPI narrative: Patient is a 73 year old assigned female at with a history of DM presenting to the emergency department today with right sided abdominal pain / chest pain. Patient states that over the last 2 days she has had intermittent right sided chest and abdominal pain. Patient states that the pain is worse with movement. Patient denies any current dizziness, lightheadedness, nausea, vomiting, fever, chills, blurry vision, double vision, loss of vision, difficulty breathing, shortness of breath, back pain, night sweats, pain with urination, increased urinary frequency, increased urinary urgency, blood in her urine or stool, syncope or a near syncopal episode, recent trauma or falls, bowel incontinence, bladder incontinence, bowel retention, bladder retention, or any other complaints at this time. Related Data Previous Rx's Medication Instructions Recorded aspirin 81 mg tablet,delayed 81 mg PO DAILY #30 tabs 07/18/23 release blood sugar diagnostic (Freestyle #100 ea 07/18/23 Insu[employer]x Test Strips) blood-glucose meter (FreeStyle #1 ea 07/18/23 Villanueva kit) colchicine 0.6 mg tablet 0.6 mg PO BID PRN pain/gout #14 07/18/23 tabs esomeprazole magnesium 40 mg 40 mg PO DAILY #30 caps 07/18/23 capsule,delayed release ezetimibe 10 mg-rosuvastatin 10 mg 1 tab PO DAILY #30 tabs 07/18/23 tablet (Roszet) glucagon HCl 1 mg solution for 1 mg subcut Q20M PRN hypoglycemia 07/18/23 injection (Glucagon (HCl) #1 ea Emergency Kit) insulin aspart U-100 100 unit/mL 7 unit (0.07 mL) subcut DAILY #15 07/18/23 (3 mL) subcutaneous pen (Novolog mL FlexPen U-100 Insulin aspart) insulin glargine 100 unit/mL (3 16 unit (0.16 mL) subcut QPM #15 mL 07/18/23 mL) subcutaneous pen (Lantus Solostar U-100 Insulin) lancets 28 gauge (FreeStyle #100 ea 07/18/23 Lancets) pregabalin 75 mg capsule 75 mg PO DAILY #30 caps 07/18/23 pregabalin 75 mg capsule 75 mg PO BEDTIME #30 caps 07/23/23 nitrofurantoin 100 mg PO BID #14 caps 08/06/23 monohydrate/macrocrystals 100 mg capsule (Macrobid) aspirin 81 mg tablet,delayed 81 mg PO DAILY #90 tabs 09/11/23 release (Adult Low Dose Aspirin) ezetimibe 10 mg-rosuvastatin 10 mg 1 tab PO DAILY #90 tabs 09/11/23 tablet insulin aspart U-100 100 unit/mL 8 unit (0.08 mL) subcut BID #15 mL 09/11/23 (3 mL) subcutaneous pen (Novolog FlexPen U-100 Insulin aspart) insulin glargine 100 unit/mL (3 20 unit (0.2 mL) subcut QPM #15 mL 09/11/23 mL) subcutaneous pen (Lantus Solostar U-100 Insulin) pantoprazole 40 mg tablet,delayed 40 mg PO DAILY #90 tabs 09/11/23 release (Protonix) pregabalin 75 mg capsule 75 mg PO DAILY #90 caps 09/11/23 sucralfate 1 gram tablet 1 g PO BID #180 tabs 09/11/23 cefuroxime axetil 250 mg tablet 250 mg PO BID 7 days #14 tabs 11/05/23 Allergies Allergy/AdvReac Type Severity Reaction Status Date / Time IV contrast Allergy Intermediate Rash Uncoded 11/05/23 15:12 IBUProfen Allergy Unknown Rash Uncoded 11/05/23 15:12 Pencillin Allergy Unknown Rash Uncoded 11/05/23 15:12 Review of Systems 2 Constitutional: Constitutional: Reports no additional constitutional complaints, Denies chills, Denies fever(s) and Denies night sweats Eyes: Eyes: Reports no additional eye complaints, Denies blurry vision, Denies change in vision, Denies diplopia, Denies eye discharge, Denies loss of vision and Denies eye pain ENT: Denies dizziness Cardiovascular: Cardiovascular: Reports no additional cardiovascular complaints, Reports chest pain, Denies lightheadedness, Denies Loss of Consciousness and Denies dyspnea Respiratory: Respiratory: Reports no additional respiratory complaints and Denies dyspnea Gastrointestinal: Gastrointestinal: Reports no additional gastrointestinal complaints, Reports abdominal pain, Denies melena, Denies hematochezia, Denies change in bowel habits and Denies change in stool character Genitourinary: Genitourinary: Denies hematuria, Denies urinary frequency, Denies dysuria, Denies urinary incontinence, Denies urinary hesitancy and Denies urinary urgency Musculoskeletal: Musculoskeletal: Reports no additional musculoskeletal complaints, Denies numbness and Denies tingling Neurologic: Denies dizziness, Denies loss of vision, Denies numbness and Denies tingling Psychiatric: Psychiatric: Reports no additional psychiatric complaints Endocrine: Endocrine: Reports no additional endocrine complaints Hematologic/Lymphatic: Hematologic/Lymphatic: Reports no additional hematologic/lymphatic complaints Allergic/Immunologic: Allergic/Immunologic: Reports no additional allergic/immunologic complaints [facility] Past Medical History Attestation statement: The following information was validated with the patient. Source: old records reviewed and nursing notes reviewed Medical History Arthritis Anxiety GERD (gastroesophageal reflux disease) Type 2 diabetes mellitus Surgical History Hx of hand surgery Social History Social History Smoked in Last 30 Days: No Use of substances other than those prescribed or required for medical reasons: No Advance Directives: No Advance Directives Information Provided: No Physical Exam 2 Vital Signs: Vital Signs: Last Vital Signs Temp 98.5 F 11/05/23 19:30 Pulse 54 11/05/23 19:30 Resp 13 11/05/23 19:30 BP 158/72 H 11/05/23 19:30 Pulse Ox 99 11/05/23 19:30 O2 Del Method Room Air 11/05/23 19:30 BMI result Body Mass Index 28.0 Const: General: cooperative, no acute distress, alert and awake Nutritional Appearance: well nourished Orientation/consciousness: patient oriented x3 Limitations: no limitations HEENT: Head: Yes normal to inspection and Yes atraumatic Ears: hearing grossly normal bilaterally and external ears normal General nose exam: Normal external nose present, no nasal discharge noted and no epistaxis Face and sinus: Yes normal facial exam, No abrasion and No laceration Mouth: Normal oral and palatal mucosa present, no drooling and no muffled voice Eyes: General: appearance normal, both eyes and all related structures P eriorbital: periorbital findings normal Eyelids: Yes eyelids normal C onjunctivae: conjunctivae normal Pupils: Equal, round and reactive pupils present EOM: EOMs intact bilaterally Neck: Neck: Yes normal visual inspection, Yes full ROM and Yes no lymphadenopathy Chest: Chest palpation & inspection: normal inspection of the chest Resp: Effort & Inspection: normal respiratory effort and able to speak in complete sentences Auscultation: clear to auscultation bilaterally GI: Inspection: Yes normal to inspection Palpation (GI): Soft to palpation, not firm, nontender and no guarding Neuro: General: patient oriented x3 and moves all extremities Cranial nerves: Yes Equal, round and reactive pupils present Cognition (Neuro): n ormal cognition Motor exam (neuro): 5/5 motor strength present throughout Sensory Exam: Normal double simultaneous stimulation for sensation C oordination: [id number] test normal Extrem: General: Yes normal to inspection, Yes full ROM and Yes capillary refill normal Psych: Appearance: grossly normal Mental Status: mental status grossly normal Affect: normal affect Attitude: cooperative Thought process: N ormal thought process present Thought content: Normal thought content present Insight: Good insight present (Psych) Medications Administered Discontinued Medications Generic Name Dose Route Start Last Admin Trade Name Freq PRN Reason Stop Dose Admin Cefuroxime Axetil 250 mg 11/05/23 18:55 11/05/23 19:20 Cefuroxime Axetil 250 Mg Tablet PO 11/05/23 18:56 250 mg ONCE ONE Administration Morphine Sulfate 4 mg 11/05/23 16:38 11/05/23 16:49 Morphine Sulfate 4 Mg/Ml Cartridge IVPUSH 11/05/23 16:39 4 mg ONCE ONE Administration Protocol Ondansetron HCl 4 mg 11/05/23 16:38 11/05/23 16:49 Ondansetron Hcl 4 Mg/2 Ml Vial IVPUSH 11/05/23 16:39 4 mg ONCE ONE Administration Medical Decision Making Medical Decision Making [facility] Narrative: Patient is a 73 year old assigned female at with a history of DM presenting to the emergency department today with right sided abdominal pain and chest pain that is intermittent. Patient's physical exam was unremarkable. Patient's blood work was unremarkable. Patient's urine showed evidence of an acute urinary tract infection - given patient's symptoms, will treat. Patient's EKG was unremarkable. Patient's chest x-ray and abdomen/pelvis CT showed no acute process. I explained my physical exam findings as well as all test results to the patient. I answered all questions asked by the patient. I stressed the importance of the patient taking her medication as prescribed. I stressed the importance of the patient following up with her primary care provider. I stressed the importance of the patient returning to the emergency department immediately if her symptoms were to worsen or if she were to develop any dizziness, shortness of breath, difficulty breathing, chest pain, blurry vision, loss of vision, nausea, vomiting, abdominal pain, fever, chills, back pain, or any other complaints. Patient verbalized agreement and understanding with this treatment plan and discharge. Patient is living home alone with her only support, her daughter, being in [place] at this time. Patient will remain in the department for physical therapy eval and case management. Physician observation begins at 2037 --> Patient requesting to go home, states that her 15 year old grand son is there and willing to stay with her. Transportation being arranged. Differential Diagnosis Differential Diagnoses: The differential diagnosis associated with the presentation includes Abdominal pain UTI Chest pain STEMI NSTEMI Admission/Observation Consideration of admission/observation: Escalation of care including admission/observation considered Patient would have been admitted to the hospital had her work up had any findings where hospital admission was appropriate and her clinical presentation warranted hospital admission. Lab Data [facility] Lab Attestation statement: I reviewed the patient's lab results. My interpretation of these results are in the [facility] Rationale portion of this note. 11/05/23 15:50 11/05/23 16:51 Labs: Lab Results 11/05/23 11/05/23 11/05/23 Range/Units 15:50 16:51 18:26 WBC 6.2 (4.8-10.8) X10*3/uL RBC 4.88 (4.20-5.50) X10*6/uL Hgb 13.2 (12.0-16.0) g/dl Hct 41.1 (37.0-47.0) % MCV 84.2 (80.0-98.0) fL MCH 27.0 (27.0-33.0) pg MCHC 32.1 (31.0-35.0) g/dl RDW 16.0 (11.0-16.0) % Plt Count 153 L (160-400) X10*3/uL MPV 12.7 H (9.4-12.3) fL Immature Gran % (Auto) 0.5 H (0.0-0.4) % Neut % (Auto) 50.4 (45-73) % Lymph % (Auto) 39.5 (20-40) % Bacon % (Auto) 8.0 (2-11) % Eos % (Auto) 0.8 (0-4) % Baso % (Auto) 0.8 (0-2) % Lymph # (Auto) 2.5 (1.2-4.9) X10*3/uL Bacon # (Auto) 0.5 (0.1-1.2) X10*3/uL Eos # (Auto) 0.1 (0.0-0.4) X10*3/uL Baso # (Auto) 0.1 (0.0-0.2) X10*3/uL Abs Immat Gran (auto) 0.03 (0.00-0.03) X10*3/uL Absolute Neuts (auto) 3.1 (2.0-8.3) x10*3/uL Absolute Nucleated RBC 0.000 (0.0-0.012) X10*3/uL Nucleated RBC % (auto) 0.0 (0.0-0.2) /100WBC Smear Tech's Comments VERIFIED Sodium 140 (135-145) mmol/L Potassium 4.5 (3.3-5.1) mmol/L Chloride 109 H (96-108) mmol/L Carbon Dioxide 24 (22-29) mmol/L Anion Gap 12 (12-20) BUN 10 (9-16) mg/dL Creatinine 0.77 (0.5-1.4) mg/dL Estim Creat Clear Calc 63.6 Estimated GFR > 60 Random Glucose 144 H (60-115) mg/dL Calcium 10.2 D (8.4-10.2) mg/dL Total Bilirubin 0.2 (0.0-1.0) mg/dL AST 12 (5-31) U/L ALT 9 (0-31) U/L Alkaline Phosphatase 123 H (39-117) U/L Troponin I High Sens < 2.7 (<3.5-17.0) ng/L Total Protein 6.5 (6.5-8.0) g/dL Albumin 3.7 (3.5-5.0) g/dL Urine Color Yellow Urine Appearance Clear Urine pH 8.5 (5.0-9.0) Ur Specific [place] 1.020 (1.005-1.025) Urine Protein Trace (Neg-Trace) mg/dL Urine Glucose (UA) 100 H (Negative) mg/dL Urine Ketones Trace (Negative) mg/dL Urine Blood Negative (Negative) Urine Nitrite Negative (Negative) Ur Leukocyte Esterase Small (1+) H (Negative) Urine RBC 0-2 (0-2) /HPF Urine WBC 21-50 H (0-5) /HPF Ur Squamous Epith Cells 3-5 (0-2) /HPF Urine Bacteria None Seen (None Seen) Hyaline Casts 0-2 (0-2) /LPF Influenza Type A (PCR) NEGATIVE (Negative) Influenza Type B (PCR) NEGATIVE (Negative) RSV RNA Qual (PCR) NEGATIVE (Negative) SARS-CoV-2 RNA (RT-PCR) NEGATIVE (Negative) Independent Interpretation I performed an independent interpretation of an: EKG, Plain X-Ray and CT Scan Interpretation: My interpretation is in agreement with the radiologist's impression of these imaging studies. - EXAMINATION: CT ABDOMEN AND PELVIS WITHOUT CONTRAST CLINICAL INFORMATION: Right lower quadrant pain. COMPARISON: CT abdomen and pelvis 08/06/2020 TECHNIQUE: Multidetector volumetric imaging was performed from the superior aspect of the liver through the pubic symphysis. Sagittal and coronal reformatted images were obtained on the technologist's workstation. Patient is allergic to IV contrast. This CT examination was performed using dose optimization techniques as appropriate, variously including the following: *Automated exposure control *Adjustment of mA and/or kV according to patient size (this includes techniques or standardized protocols for targeted exams where dose is matched to indication/reason for exam; i.e. extremities or head) *Use of iterative reconstruction technique DLP: 486 mGy-cm FINDINGS: LUNG BASES: The lung bases are clear. The heart size is normal. LIVER, GALLBLADDER, AND BILIARY TREE: The liver is normal in size, shape, and attenuation. No focal hepatic lesion or biliary ductal dilatation is present. The gallbladder is unremarkable with no evidence of radiopaque gallstones, gallbladder wall thickening, or obvious pericholecystic inflammatory changes. PANCREAS: Unremarkable. SPLEEN: Unremarkable. ADRENAL GLANDS: Unremarkable. KIDNEYS AND URETERS: The kidneys are normal in size, shape, and attenuation. No hydronephrosis, hydroureter, or calculi seen. No perinephric stranding. BLADDER: Unremarkable. GASTROINTESTINAL TRACT: There is moderate scattered stool, few diverticuli and gas seen throughout the colon without significant distention. The small bowel loops are normal caliber. Appendix is normal caliber. The stomach is nondistended with mild thickening. No free air or free fluid seen. ABDOMINAL WALL: No significant hernia is appreciated. LYMPH NODES: Normal. VASCULAR: Unremarkable. PELVIC VISCERA: The uterus is anteverted with punctate calcification in the fundus. No adnexal mass seen. There is minimal fluid in the right cul-de-sac on axial image 65/3. OSSEOUS STRUCTURES: There is grade 1 anterolisthesis L5-S1 with mild degenerative disc changes with disc bulge L5-S1 disc level. No aggressive lytic or sclerotic process seen. CT/CT abdomen pelvis wo IV con IMPRESSION: No acute intra-abdominal process seen. Mild constipation. Minimal diverticulosis. No evidence of diverticulitis. Nonspecific tiny fluid in cul-de-sac similar to previous study. Fleischner guidelines were followed. Dictated By: Mark Mcleod MD Signed By: Electronically signed by Mark Mcleod MD 11/05/23 1720 - EXAMINATION: CHEST 2 VIEWS CLINICAL INFORMATION: chest pain. COMPARISON: 07/23/2023. TECHNIQUE: PA and lateral views of the chest obtained. FINDINGS: The lungs are well expanded. No focal infiltrate, effusion, edema, or pneumothorax. Cardiac and mediastinal silhouettes are within normal limits for technique. No acute bony abnormality seen XR/XR chest 2V IMPRESSION: No evidence of acute disease Dictated By: Myron Tam MD Signed By: Electronically signed by Myron Tam MD 11/05/23 1628 - Vent. Rate: 060 BPM Atrial Rate: 060 BPM P-R Int: 166 ms QRS Dur: 070 ms QT Int: 386 ms P-R-T Axes: 045 007 050 degrees QTc Int: 386 ms Normal sinus rhythm Normal ECG When compared with ECG of 11-SEP-2023 16:36, No significant change was found DD/ 1521 Radiology Impression Discussion of test interpretation with radiology: I have reviewed the radiologist's reading. Independent Historian Clinical information obtained from an independent historian. History obtained from or confirmed by: EMS (EMS provided additional history and confirmed the history provided by the patient.) Prescription Management I considered prescription management with: Antibiotic (patient prescribed an antibiotic for possible UTI) Chronic Conditions Patient?s care impacted by: Diabetes Critical Care Time Critical Care Time Critical Care Time: Yes Total Critical Care Time: 55 Attestation: I spent 55 minutes of Critical Care Time with this patient. This does not include time spent on separately reported billable procedures. Discharge Plan Discharge Clinical Impression: Muscle spasm, Abdominal pain, Acute UTI, Unsteady gait Patient Disposition: Home, Self-Care Instructions: Abdominal Pain (ED), Muscle Spasm (ED), Urinary Tract Infection in Older Adults (ED) Additional Instructions: Take your antibiotic as prescribed. Follow up with your primary care provider. Return to the emergency department immediately if your symptoms worsen or if you develop any dizziness, shortness of breath, difficulty breathing, chest pain, blurry vision, loss of vision, nausea, vomiting, abdominal pain, fever, chills, back pain, or any other complaints. Prescriptions: New cefuroxime axetil 250 mg tablet 250 mg PO BID 7 Days Qty: 14 0RF No Action colchicine 0.6 mg tablet 0.6 mg PO BID PRN (Reason: pain/gout) Qty: 14 0RF pregabalin 75 mg capsule 75 mg PO DAILY Qty: 30 1RF aspirin 81 mg tablet,delayed release (DR/EC) 81 mg PO DAILY Qty: 30 1RF ezetimibe-rosuvastatin [Roszet] 10-10 mg tablet 1 tab PO DAILY Qty: 30 1RF esomeprazole magnesium 40 mg capsule,delayed release(DR/EC) 40 mg PO DAILY Qty: 30 1RF insulin glargine [Lantus Solostar U-100 Insulin] 100 unit/mL (3 mL) insulin pen 16 unit subcut QPM Qty: 15 0RF insulin aspart U-100 [Novolog FlexPen U-100 Insulin] 100 unit/mL (3 mL) insulin pen 7 unit subcut DAILY Qty: 15 0RF (DME) blood-glucose meter [FreeStyle Villanueva] Kit See Rx Instructions .Route Qty: 1 0RF Rx Instructions: As directed (DME) Freestyle In[employer]x Test Strips Strip See Rx Instructions .Route Qty: 100 0RF Rx Instructions: As directed (DME) lancets [FreeStyle Lancets] 28 gauge misc See Rx Instructions .Route Qty: 100 0RF Rx Instructions: As directed glucagon HCl [Glucagon (HCl) Emergency Kit] 1 mg recon soln 1 mg subcut Q20M PRN (Reason: hypoglycemia) Qty: 1 0RF Rx Instructions: until target blood sugar attained pregabalin 75 mg capsule 75 mg PO BEDTIME Qty: 30 0RF nitrofurantoin monohyd/m-cryst [Macrobid] 100 mg capsule 100 mg PO BID Qty: 14 0RF Rx Instructions: must administer with a meal/food ezetimibe-rosuvastatin 10-10 mg tablet 1 tab PO DAILY Qty: 90 3RF insulin aspart U-100 [Novolog FlexPen U-100 Insulin] 100 unit/mL (3 mL) insulin pen 8 unit subcut BID Qty: 15 3RF pregabalin 75 mg capsule 75 mg PO DAILY Qty: 90 3RF pantoprazole [Protonix] 40 mg tablet,delayed release (DR/EC) 40 mg PO DAILY Qty: 90 3RF sucralfate 1 gram tablet 1 g PO BID Qty: 180 3RF aspirin [Adult Low Dose Aspirin] 81 mg tablet,delayed release (DR/EC) 81 mg PO DAILY Qty: 90 3RF insulin glargine [Lantus Solostar U-100 Insulin] 100 unit/mL (3 mL) insulin pen 20 unit subcut QPM Qty: 15 3RF Referrals: [facility] [[place] Group] (Call to establish and follow up with a primary care provider. If you already have a primary care provider, please follow up with them.) [facility] [place] [facility] [Provider Group] (Call to establish and follow up with a primary care provider. If you already have a primary care provider, please follow up with them.) [facility] [place] [facility] [Provider Group] (Call to establish and follow up with a primary care provider. If you already have a primary care provider, please follow up with them.) Print Language: Pashto
[2023-11-05 16:01] LABS: Basophils Absolute Auto 0.1 X10*3/uL (0.0-0.2); Basophils Percent Auto 0.8 % (0-2); Eosinophils Absolute Auto 0.1 X10*3/uL (0.0-0.4); Eosinophils Percent Auto 0.8 % (0-4); Hematocrit 41.1 % (37.0-47.0); Hemoglobin 13.2 g/dl (12.0-16.0); Imm Gran Abs Auto 0.03 X10*3/uL (0.00-0.03); Imm Gran Pct Auto 0.5 % (0.0-0.4); Lymphocytes Absolute Auto 2.5 X10*3/uL (1.2-4.9); Lymphocytes Percent Auto 39.5 % (20-40); MANUAL DIFF FLAG SCAN; Mean Corpuscular HGB Conc 32.1 g/dl (31.0-35.0); Mean Corpuscular Volume 84.2 fL (80.0-98.0); Mean Platelet Volume 12.7 fL (9.4-12.3); Monocytes Absolute Auto 0.5 X10*3/uL (0.1-1.2); Neutrophils Absolute Auto 3.1 x10*3/uL (2.0-8.3); Neutrophils Percent Auto 50.4 % (45-73); PLT CLUMP 1; Red Blood Count 4.88 X10*6/uL (4.20-5.50); SCAN SMEAR FLAG 1
[2023-11-05 16:02] LABS: White Blood Count 6.2 X10*3/uL (4.8-10.8)
[2023-11-05 16:18] LABS: Troponin-I High Sensitivity < 2.7 ng/L (<3.5-17.0)
[2023-11-05 16:20] LABS: Platelet Count 153 X10*3/uL (160-400); SLIDE REVIEW VERIFIED
--- NOTE | 2023-11-05 16:31 | PC.NURSE ---
pt to CT at this time.
--- NOTE | 2023-11-05 16:31 | PC.NURSE ---
22gIV placed in the left hand - labs obtained/sent to lab.
[2023-11-05] MEDS: Morphine Sulfate 4 MG/ML CARTRIDGE IVPUSH (16:49)
[2023-11-05] MEDS: ondansetron HCL 4 MG/2 ML VIAL IVPUSH (16:49)
--- NOTE | 2023-11-05 16:53 | PC.NURSE ---
pt c/o increase in abd pain/nausea. rating pain at a 8/10. pt medicated per provider order. effectiveness pending. pt waiting for CT results at this time. plan of care ongoing. call brown placed within reach.
[2023-11-05 17:25] LABS: Alanine Aminotransferase 9 U/L (0-31); Albumin Level 3.7 g/dL (3.5-5.0); Alkaline Phosphatase 123 U/L (39-117); Anion Gap 12 (12-20); Aspartate Amino Transferase 12 U/L (5-31); Bilirubin Total 0.2 mg/dL (0.0-1.0); Blood Urea Nitrogen 10 mg/dL (9-16); Calcium 10.2 mg/dL (8.4-10.2); Carbon Dioxide 24 mmol/L (22-29); Chloride 109 mmol/L (96-108); Creatinine Clr Calc Pharmacy 63.6; Estimated Glomerular Filt Rate > 60; Glucose Random 144 mg/dL (60-115); Potassium 4.5 mmol/L (3.3-5.1); Sodium 140 mmol/L (135-145); Total Protein 6.5 g/dL (6.5-8.0)
[2023-11-05 17:34] LABS: Influenza A PCR NEGATIVE (Negative); Influenza B PCR NEGATIVE (Negative); Resp Syncy Virus RNA Qual PCR NEGATIVE (Negative); SARS COV2 PCR INHOUSE NEGATIVE (Negative)
[2023-11-05 17:53] VITALS: BP 142/70; PULSE 58; RESP 16; TEMP 36.8; O2SAT 98
--- NOTE | 2023-11-05 18:27 | MHC.EDTECH ---
PATIENT WAS ASSISTED UNTO BEDSIDE COMMODE WITH 2 ASST ,URINE SAMPLE COLLECTED AND SENT TO LAB ,PATIENT WAS ASSISTED BACK INTO BED ,CALL BUSTOS WITHIN PATIENT REACH .
--- NOTE | 2023-11-05 18:30 | PC.NURSE ---
2:1 assist to the commode - pt uses a walker to ambulate baseline. urine obtained/sent to lab.
[2023-11-05 18:35] LABS: Appearance Urine Clear; Color Urine Yellow; Glucose Urine UA 100 mg/dL (Negative); Leukocyte Esterase Urine Small (1+) (Negative); Nitrite Urine Negative (Negative); PH 8.5 (5.0-9.0); UMIC TRIGGER UACC YES; Urine Blood Negative (Negative); Urine Ketones Trace mg/dL (Negative); Urine Protein Trace mg/dL (Neg-Trace)
[2023-11-05 18:38] LABS: Bacteria Urine None Seen (None Seen); Hyaline Casts Urine 0-2 /LPF (0-2); RBC Urine 0-2 /HPF (0-2); UACC Culture Trigger YES; WBC Urine 21-50 /HPF (0-5)
[2023-11-05] MEDS: cefuroxime axetiL 250 MG TABLET PO (19:20)
--- NOTE | 2023-11-05 19:21 | PC.NURSE ---
assumed care of pt. pt resting in stretcher, a&ox4, respirations even and unlabored. pt medicated per mar, tolerated well with water.
[2023-11-05 19:30] VITALS: BP 158/72; PULSE 54; RESP 13; TEMP 36.9; O2SAT 99
[2023-11-05 20:58] VITALS: BP 150/52; PULSE 57; RESP 16; O2SAT 99
[2023-11-05 21:02] VITALS: BP 150/52; PULSE 57; RESP 16; TEMP 36.8; O2SAT 99
--- NOTE | 2023-11-05 21:02 | PC.NURSE ---
ems at bedside to transport pt home.
== END 2023-11-05 21:03 | disposition home or self-care (01) ==
PROVIDERS: Physician Assistant Medical; Emergency Provider Emergency Medicine Emergency Medical Services
DX: R10.9 Unspecified abdominal pain (principal); M62.838 Other muscle spasm; N39.0 Urinary tract infection, site not specified; R26.81 Unsteadiness on feet; R07.9 Chest pain, unspecified; E11.9 Type 2 diabetes mellitus without complications; Z03.818 Encounter for observation for suspected exposure to other biological agents ruled out
CPT/HCPCS: 0241U; 36415; 71046; 74176; 80053; 81001; 84484; 85025; 87086; 93005; 96374; 96375; 99284; 99285; J2270; J2405

== ENCOUNTER → 2023-11-05 15:21 | Outpatient (BNV) | payer MEDICARE, MEDICAID, SELFPAY | PROVIDERS: Emergency Provider Emergency Medicine Emergency Medical Services; Visit Provider Internal Medicine Cardiovascular Disease | DX: R07.9 Chest pain, unspecified (principal) | CPT/HCPCS: 93010 ==

== ENCOUNTER 2023-12-22 09:39 | Outpatient (REF) | payer MEDICARE, MEDICAID, SELFPAY ==
[2023-12-22 15:36] LABS: Folate 7.8 ng/mL (> or = 4.0); Vitamin B12 229 pg/mL (200-900)
[2023-12-23 08:43] LABS: Syphilis Screen Nonreactive (Nonreactive)
== END 2023-12-22 09:40 | disposition home or self-care (01) ==
LOC: HO.CHCLDS 09:39
PROVIDERS: Visit Provider Pediatrics
DX: R41.3 Other amnesia (principal); E11.65 Type 2 diabetes mellitus with hyperglycemia; Z79.4 Long term (current) use of insulin
CPT/HCPCS: 36415; 82607; 82746; 84443; 86780

== ENCOUNTER 2024-03-19 19:10 | Emergency (ER) | payer MEDICARE, MEDICAID, SELFPAY ==
--- NOTE | ~2024-03-19 | CT_ITS ---
EXAMINATION: CT head/brain wo IV con CLINICAL INFORMATION: Reason for Exam weakness, blurry vision, difficulty walking, fall COMPARISON: CT head without contrast 07/23/2023 TECHNIQUE: Contiguous axial imaging was performed from the skull base to vertex without intravenous contrast. Sagittal and coronal reformatted images were obtained. This CT examination was performed using dose optimization techniques as appropriate, variously including the following: * Automated exposure control * Adjustment of mA and/or kV according to patient size (this includes techniques or standardized protocols for targeted exams where dose is matched to indication/reason for exam; i.e. extremities or head) Use of iterative reconstruction technique DLP: 565 mGy-cm FINDINGS: No acute osseous or soft tissue abnormality. The mastoid air cells and visualized portions of the paranasal sinuses are well aerated. Grossly stable hyperdense and partially calcified right frontal convexity meningioma measuring up to 3.4 cm in maximal sagittal dimensions with mild mass effect on the adjacent frontal lobe. There is no evidence of acute intracranial hemorrhage or territorial infarction. No abnormal mass effect or midline shift is seen. [place] to white matter differentiation is well preserved. No extra-axial fluid collections are identified. No hydrocephalus. No significant volume loss. Patchy periventricular and deep white matter hypoattenuation is consistent with mild small vessel ischemic changes. CT/CT head/brain wo IV con IMPRESSION: 1. No acute intracranial abnormality including hemorrhage, mass effect, hydrocephalus, or acute territorial edematous infarction. 2. Stable right frontal convexity meningioma.
--- NOTE | ~2024-03-19 | XR_ITS ---
EXAMINATION: XR HAND/WRIST, RIGHT CLINICAL INFORMATION: Trauma COMPARISON: None TECHNIQUE: Four views of the right hand and wrist. FINDINGS: Bones are relatively osteopenic. Normal alignment. No acute superimposed fracture or dislocation. Minimal degenerative changes in the radiocarpal joint and first carpometacarpal joint. Surrounding soft tissues unremarkable. XR/XR hand wrist RT IMPRESSION: No acute fracture or dislocation. Mild degenerative changes.
[2024-03-19 19:26] VITALS: BP 164/89; PULSE 65; O2SAT 99
--- NOTE | 2024-03-19 19:29 | ECG_ITS ---
Test Reason : DIZZINESS Blood Pressure : / mmHG Vent. Rate : 057 BPM Atrial Rate : 057 BPM P-R Int : 164 ms QRS Dur : 070 ms QT Int : 374 ms P-R-T Axes : 041 002 051 degrees QTc Int : 364 ms Sinus bradycardia Otherwise normal ECG When compared with ECG of 05-NOV-2023 15:21, No significant change was found Referred By: China Tovar Electronically Signed By:JUNE CAR
[2024-03-19 19:32] VITALS: BMI 25.7
[2024-03-19 20:09] LABS: MANUAL DIFF FLAG NO
[2024-03-19 20:10] LABS: Basophils Absolute Auto 0.1 X10*3/uL (0.0-0.2); Basophils Percent Auto 1.1 % (0-2); Eosinophils Absolute Auto 0.1 X10*3/uL (0.0-0.4); Eosinophils Percent Auto 0.9 % (0-4); Hematocrit 38.2 % (37.0-47.0); Hemoglobin 12.3 g/dl (12.0-16.0); Imm Gran Abs Auto 0.02 X10*3/uL (0.00-0.03); Imm Gran Pct Auto 0.4 % (0.0-0.4); Lymphocytes Absolute Auto 2.1 X10*3/uL (1.2-4.9); Lymphocytes Percent Auto 37.7 % (20-40); Mean Corpuscular HGB Conc 32.2 g/dl (31.0-35.0); Mean Corpuscular Volume 86.8 fL (80.0-98.0); Mean Platelet Volume 12.1 fL (9.4-12.3); Monocytes Absolute Auto 0.5 X10*3/uL (0.1-1.2); Monocytes Percent Auto 9.5 % (2-11); Neutrophils Absolute Auto 2.9 x10*3/uL (2.0-8.3); Neutrophils Percent Auto 50.4 % (45-73); Platelet Count 184 X10*3/uL (160-400); Red Cell Distribution Width 14.4 % (11.0-16.0); White Blood Count 5.7 X10*3/uL (4.8-10.8)
--- NOTE | 2024-03-19 20:20 | ED.GENADULT ---
HPI - General Adult General Chief complaint: General Medical Stated complaint: DIZZY NAUSEA VISION ISSUES Time Seen by Provider: 03/19/24 20:06 Source: patient, RN notes reviewed and old records reviewed Mode of arrival: EMS Limitations: no limitations History of Present Illness ED Provider: Ivett KEANE narrative: 73-year-old female with past medical history significant for diabetes and gait instability presents for evaluation of multiple complaints Patient reports that she returned from [facility] 6 days ago, last Tuesday She reports headaches, congestion, runny nose, dizziness, global weakness. She states that she has blurry vision She reports that she has had multiple falls over last week She complains of a bruise to her right forearm and hand from a fall sustained yesterday She denies any chest pain, shortness of breath, abdominal pain, nausea vomiting On review of her chart, the patient was seen here times last July, 8 months ago for similar complaints She ended up having a brain MRI on 07/23/2023 I did not show any acute pathology She further had an MRI of her lumbar spine on 08/06/2023 which showed some disc bulge and moderate spinal canal stenosis and compression of the S1 traversing nerve roots Related Data Previous Rx's ?Medication ?Instructions ?Recorded aspirin 81 mg tablet,delayed 81 mg PO DAILY #30 tabs 07/18/23 release blood sugar diagnostic (Freestyle #100 ea 07/18/23 [employer] Test Strips) blood-glucose meter (FreeStyle #1 ea 07/18/23 [place] kit) colchicine 0.6 mg tablet 0.6 mg PO BID PRN pain/gout #14 07/18/23 tabs esomeprazole magnesium 40 mg 40 mg PO DAILY #30 caps 07/18/23 capsule,delayed release ezetimibe 10 mg-rosuvastatin 10 mg 1 tab PO DAILY #30 tabs 07/18/23 tablet (Roszet) glucagon HCl 1 mg solution for 1 mg subcut Q20M PRN hypoglycemia 07/18/23 injection (Glucagon (HCl) #1 ea Emergency Kit) insulin aspart U-100 100 unit/mL 7 unit (0.07 mL) subcut DAILY #15 07/18/23 (3 mL) subcutaneous pen (Novolog mL FlexPen U-100 Insulin aspart) insulin glargine 100 unit/mL (3 16 unit (0.16 mL) subcut QPM #15 mL 07/18/23 mL) subcutaneous pen (Lantus Solostar U-100 Insulin) lancets 28 gauge (FreeStyle #100 ea 07/18/23 Lancets) pregabalin 75 mg capsule 75 mg PO DAILY #30 caps 07/18/23 pregabalin 75 mg capsule 75 mg PO BEDTIME #30 caps 07/23/23 nitrofurantoin 100 mg PO BID #14 caps 08/06/23 monohydrate/macrocrystals 100 mg capsule (Macrobid) aspirin 81 mg tablet,delayed 81 mg PO DAILY #90 tabs 09/11/23 release (Adult Low Dose Aspirin) ezetimibe 10 mg-rosuvastatin 10 mg 1 tab PO DAILY #90 tabs 09/11/23 tablet insulin aspart U-100 100 unit/mL 8 unit (0.08 mL) subcut BID #15 mL 09/11/23 (3 mL) subcutaneous pen (Novolog FlexPen U-100 Insulin aspart) insulin glargine 100 unit/mL (3 20 unit (0.2 mL) subcut QPM #15 mL 09/11/23 mL) subcutaneous pen (Lantus Solostar U-100 Insulin) pantoprazole 40 mg tablet,delayed 40 mg PO DAILY #90 tabs 09/11/23 release (Protonix) pregabalin 75 mg capsule 75 mg PO DAILY #90 caps 09/11/23 sucralfate 1 gram tablet 1 g PO BID #180 tabs 09/11/23 cefuroxime axetil 250 mg tablet 250 mg PO BID 7 days #14 tabs 11/05/23 Allergies Allergy/AdvReac Type Severity Reaction Status Date / Time IV contrast Allergy Intermediate Rash Uncoded 03/19/24 19:39 IBUProfen Allergy Unknown Rash Uncoded 03/19/24 19:39 Pencillin Allergy Unknown Rash Uncoded 03/19/24 19:39 Review of Systems Constitutional: Constitutional: Reports body ache(s), Reports chills, Reports fever(s), Reports headache(s) and Reports weakness (bilateral legs) Eyes: Eyes: Reports blurry vision, Reports itchy eyes, Denies loss of peripheral vision, Denies eye pain, Denies seeing flashes and Denies photophobia ENT: Reports dizziness, Reports headache(s), Denies neck pain and Denies sore throat Cardiovascular: Cardiovascular: Denies chest pain and Denies dyspnea Respiratory: Respiratory: Denies chest congestion, Denies cough, Denies pain with cough and Denies dyspnea Gastrointestinal: Gastrointestinal: Denies abdominal pain, Denies nausea and Denies vomiting Genitourinary: Genitourinary: Denies dysuria Musculoskeletal: Musculoskeletal: Reports back pain, Denies arthralgias, Denies joint swelling, Denies limited range of motion and Denies neck pain Integumentary/Breasts: Skin/Breast: Denies rash Neurologic: Reports dizziness, Reports headache(s) and Reports weakness (bilateral legs) Psychiatric: Psychiatric: Denies anxiety Allergic/Immunologic: Allergic/Immunologic: Reports itchy eyes PMFSH Past Medical History Medical History Arthritis Anxiety GERD (gastroesophageal reflux disease) Type 2 diabetes mellitus Surgical History Hx of hand surgery Social History Social History Smoked in Last 30 Days: No Use of substances other than those prescribed or required for medical reasons: No Advance Directives: No Advance Directives Information Provided: No Physical Exam ED Vital Signs: Vital Signs - 24 hr 03/19/24 20:33 03/20/24 01:05 03/20/24 01:09 Temperature 97.2 F Pulse Rate 56 51 58 Respiratory Rate 16 Blood Pressure 166/54 H 113/65 118/70 Pulse Oximetry 99 Oxygen Delivery Method Room Air 03/20/24 01:12 03/20/24 01:15 Temperature 97.5 F Pulse Rate 58 56 Respiratory Rate 20 Blood Pressure 152/55 H 160/62 H Pulse Oximetry 98 Oxygen Delivery Method Room Air BMI result Body Mass Index 25.7 Const General: healthy appearing, comfortable, no acute distress, alert and awake Nutritional Appearance: well nourished Orientation/consciousness: patient oriented x3 HENMT Head: Yes normocephalic and Yes atraumatic Throat: Yes posterior oropharynx normal Eyes Eyelids: Yes eyelids normal Conjunctivae: conjunctivae normal Sclerae: sclerae normal Corneas: corneas normal Pupils: Equal, round and reactive pupils present EOM: EOMs intact bilaterally Direct Ophthalmoscopy: No photophobia Neck Neck: Yes full ROM Resp Effort & Inspection: normal respiratory effort, able to speak in complete sentences, no audible wheezes and not labored Auscultation: clear to auscultation bilaterally Cardio Rate: regular rate Rhythm: regular rhythm GI Inspection: No distended Palpation (GI): Soft to palpation, not firm, nontender, no guarding and not rigid Skin General skin exam: no rashes or lesions noted and elasticity normal Neuro Other: Patient has weakness to the bilateral lower extremities with flexion at the waist 3-5, dorsiflexion 3-5 and plantar flexion 3/5 bilaterally. Cigarette Examiner strength is 5/5 bilaterally General: patient oriented x3 Cranial nerves: Yes CN's II-XII intact bilaterally, Yes Equal, round and reactive pupils present and Yes Bilaterally intact EOM present Cognition (Neuro): normal cognition Coordination: [id number] test normal Extrem Other: Small contusion to the right forearm over the medial aspect of the radius. There is a small contusion to the palmar surface of the right hand without significant edema or deformity on palpation Moving all extremities well Course Reevaluation(s) Reevaluation #1: Patient's workup shows a hyperglycemia that was treated with IV fluids and insulin. There is no evidence of DKA, the remainder of the workup was largely unremarkable, CT scan of the brain is negative. Time: 00:18 Reevaluation #2: Is not orthostatic, again with a nonfocal exam in previous presentations with negative workups. The patient now complains of ?itchiness all over. She has no rashes, oral or perioral retropharyngeal edema, no difficulty breathing, wheezing or stridor on exam. Unclear what the cause of her itching is. Does not from hyperbilirubinemia or uremia as these results are within normal limits. No evidence of allergic reaction or anaphylaxis. Regardless, the patient is unable to ambulate without assistance due to weakness, she will require physical therapy and case management evaluation she will be placed in a physician observation status Time: 01:30 Medications Administered Discontinued Medications Generic Name Dose Route Start Last Admin Trade Name Freq PRN Reason Stop Dose Admin Sodium Chloride 1,000 mls @ 999 mls/hr 03/19/24 20:45 03/19/24 22:28 Ns IV 03/19/24 21:45 Infused .Q1H1M SARI Infusion Insulin Human Regular 5 unit 03/19/24 20:36 03/19/24 21:07 Insulin Regular, Human 100 Unit/Ml 10 Ml Vial IVPUSH 03/19/24 20:37 5 unit ONCE ONE Administration Meclizine HCl 50 mg 03/20/24 00:22 03/20/24 00:46 Meclizine Hcl 25 Mg Tablet PO 03/20/24 00:23 50 mg ONCE ONE Administration Medical Decision Making Medical Decision Making [facility] Narrative: 73-year-old female presents for evaluation of multiple complaints including dizziness, blurry vision, left greater than right. She complains of congestion, weakness. Under review of her medical history, she had a similar presentation in July an ultimately had a negative workup. She does have a known meningioma of the brain. She reports that her symptoms started 6 days ago, she has no focal symptoms to suggest CVA. She denies any acute back pain in his due to have further corticosteroid injections into her spine 1 week from today per her report. Plan for CT scan of the brain without contrast, basic labs, COVID swab. Despite her recent trip from [facility], she has no leg swelling or leg pain to suggest DVT, she only complains of bilateral leg weakness Differential Diagnosis Differential Diagnoses: The differential diagnosis associated with the presentation includes Viral syndrome Upper respiratory infection Pneumonia Bronchitis Intracranial mass Urinary tract infection Admission/Observation Consideration of admission/observation: Escalation of care including admission/observation considered Their observation due to dizziness, however the patient's vitals are stable, she had a nonfocal exam. Low suspicion for posterior circulatory CVA Lab Data [facility] Lab Attestation statement: I reviewed the patient's lab results. No leukocytosis or anemia. Normal platelet count. No electrolyte abnormalities 03/19/24 20:03 03/19/24 20:03 Labs: Lab Results 03/19/24 Range/Units 20:03 WBC 5.7 (4.8-10.8) X10*3/uL RBC 4.40 (4.20-5.50) X10*6/uL Hgb 12.3 (12.0-16.0) g/dl Hct 38.2 (37.0-47.0) % MCV 86.8 (80.0-98.0) fL MCH 28.0 (27.0-33.0) pg MCHC 32.2 (31.0-35.0) g/dl RDW 14.4 (11.0-16.0) % Plt Count 184 (160-400) X10*3/uL MPV 12.1 (9.4-12.3) fL Immature Gran % (Auto) 0.4 (0.0-0.4) % Neut % (Auto) 50.4 (45-73) % Lymph % (Auto) 37.7 (20-40) % Norman % (Auto) 9.5 (2-11) % Eos % (Auto) 0.9 (0-4) % Baso % (Auto) 1.1 (0-2) % Lymph # (Auto) 2.1 (1.2-4.9) X10*3/uL Norman # (Auto) 0.5 (0.1-1.2) X10*3/uL Eos # (Auto) 0.1 (0.0-0.4) X10*3/uL Baso # (Auto) 0.1 (0.0-0.2) X10*3/uL Abs Immat Gran (auto) 0.02 (0.00-0.03) X10*3/uL Absolute Neuts (auto) 2.9 (2.0-8.3) x10*3/uL Absolute Nucleated RBC 0.000 (0.0-0.012) X10*3/uL Nucleated RBC % (auto) 0.0 (0.0-0.2) /100WBC Sodium 139 (135-145) mmol/L Potassium 4.5 (3.3-5.1) mmol/L Chloride 106 (96-108) mmol/L Carbon Dioxide 24 (22-29) mmol/L Anion Gap 14 (12-20) BUN 11 (9-16) mg/dL Creatinine 0.77 (0.5-1.4) mg/dL Estim Creat Clear Calc 63.5 Estimated GFR > 60 Random Glucose 324 H (60-115) mg/dL Calcium 11.1 H D (8.4-10.2) mg/dL Magnesium 2.2 (1.6-2.6) mg/dL Total Bilirubin 0.3 (0.0-1.0) mg/dL AST 8 (5-31) U/L ALT 7 (0-31) U/L Alkaline Phosphatase 92 (39-117) U/L Troponin I High Sens < 2.7 (<3.5-17.0) ng/L Total Protein 6.8 (6.5-8.0) g/dL Albumin 4.1 (3.5-5.0) g/dL Influenza Type A (PCR) NEGATIVE (Negative) Influenza Type B (PCR) NEGATIVE (Negative) RSV RNA Qual (PCR) NEGATIVE (Negative) SARS-CoV-2 RNA (RT-PCR) NEGATIVE (Negative) Radiology Impression Discussion of test interpretation with radiology: I have reviewed the radiologist's reading. Radiologist Impression: CT/CT head/brain wo IV con IMPRESSION: 1. No acute intracranial abnormality including hemorrhage, mass effect, hydrocephalus, or acute territorial edematous infarction. 2. Stable right frontal convexity meningioma. Discharge Plan Discharge Clinical Impression: Weakness Patient Disposition: Still a Patient Prescriptions: No Action colchicine 0.6 mg tablet 0.6 mg PO BID PRN (Reason: pain/gout) Qty: 14 0RF pregabalin 75 mg capsule 75 mg PO DAILY Qty: 30 1RF aspirin 81 mg tablet,delayed release (DR/EC) 81 mg PO DAILY Qty: 30 1RF ezetimibe-rosuvastatin [Roszet] 10-10 mg tablet 1 tab PO DAILY Qty: 30 1RF esomeprazole magnesium 40 mg capsule,delayed release(DR/EC) 40 mg PO DAILY Qty: 30 1RF insulin glargine [Lantus Solostar U-100 Insulin] 100 unit/mL (3 mL) insulin pen 16 unit subcut QPM Qty: 15 0RF insulin aspart U-100 [Novolog FlexPen U-100 Insulin] 100 unit/mL (3 mL) insulin pen 7 unit subcut DAILY Qty: 15 0RF (DME) blood-glucose meter [FreeStyle [place]] Kit See Rx Instructions .Route Qty: 1 0RF Rx Instructions: As directed (DME) Freestyle [employer] Test Strips Strip See Rx Instructions .Route Qty: 100 0RF Rx Instructions: As directed (DME) lancets [FreeStyle Lancets] 28 gauge misc See Rx Instructions .Route Qty: 100 0RF Rx Instructions: As directed glucagon HCl [Glucagon (HCl) Emergency Kit] 1 mg recon soln 1 mg subcut Q20M PRN (Reason: hypoglycemia) Qty: 1 0RF Rx Instructions: until target blood sugar attained pregabalin 75 mg capsule 75 mg PO BEDTIME Qty: 30 0RF cefuroxime axetil 250 mg tablet 250 mg PO BID 7 Days Qty: 14 0RF nitrofurantoin monohyd/m-cryst [Macrobid] 100 mg capsule 100 mg PO BID Qty: 14 0RF Rx Instructions: must administer with a meal/food ezetimibe-rosuvastatin 10-10 mg tablet 1 tab PO DAILY Qty: 90 3RF insulin aspart U-100 [Novolog FlexPen U-100 Insulin] 100 unit/mL (3 mL) insulin pen 8 unit subcut BID Qty: 15 3RF pregabalin 75 mg capsule 75 mg PO DAILY Qty: 90 3RF pantoprazole [Protonix] 40 mg tablet,delayed release (DR/EC) 40 mg PO DAILY Qty: 90 3RF sucralfate 1 gram tablet 1 g PO BID Qty: 180 3RF aspirin [Adult Low Dose Aspirin] 81 mg tablet,delayed release (DR/EC) 81 mg PO DAILY Qty: 90 3RF insulin glargine [Lantus Solostar U-100 Insulin] 100 unit/mL (3 mL) insulin pen 20 unit subcut QPM Qty: 15 3RF Print Language: Sinhala
[2024-03-19 20:32] LABS: Alanine Aminotransferase 7 U/L (0-31); Albumin Level 4.1 g/dL (3.5-5.0); Alkaline Phosphatase 92 U/L (39-117); Anion Gap 14 (12-20); Aspartate Amino Transferase 8 U/L (5-31); Bilirubin Total 0.3 mg/dL (0.0-1.0); Blood Urea Nitrogen 11 mg/dL (9-16); Calcium 11.1 mg/dL (8.4-10.2); Carbon Dioxide 24 mmol/L (22-29); Chloride 106 mmol/L (96-108); Creatinine Clr Calc Pharmacy 63.5; Estimated Glomerular Filt Rate > 60; Glucose Random 324 mg/dL (60-115); Magnesium 2.2 mg/dL (1.6-2.6); Potassium 4.5 mmol/L (3.3-5.1); Sodium 139 mmol/L (135-145); Total Protein 6.8 g/dL (6.5-8.0)
[2024-03-19 20:33] VITALS: BP 166/54; PULSE 56; RESP 16; TEMP 36.2; O2SAT 99
[2024-03-19 20:39] LABS: Troponin-I High Sensitivity < 2.7 ng/L (<3.5-17.0)
[2024-03-19 20:51] LABS: Influenza A PCR NEGATIVE (Negative); Influenza B PCR NEGATIVE (Negative); Resp Syncy Virus RNA Qual PCR NEGATIVE (Negative); SARS COV2 PCR INHOUSE NEGATIVE (Negative)
[2024-03-19] MEDS: 0.9 % Sodium Chloride 1,000 ML 999 ML IV (21:02)
[2024-03-19] MEDS: Insulin Regular, Human 100 UNIT/ML 10 ML VIAL IVPUSH (21:07)
[2024-03-20] VITALS (7 sets, daily range): BP systolic 113–166; BP diastolic 55–80; PULSE 51–65; RESP 16–20; TEMP 36.4–36.8; O2SAT 98–99
[2024-03-20] MEDS: Meclizine HCl 25 MG TABLET 50 MG PO (00:46)
--- NOTE | 2024-03-20 03:23 | MHC.EDTECH ---
mauri placed for pt to urinate, pt states they do not feel like they can stand at this time.
--- NOTE | 2024-03-20 03:59 | MHC.EDTECH ---
this tech removed purewick at request of the pt.
[2024-03-20 06:33] LABS: Appearance Urine Clear; Color Urine Yellow; Glucose Urine UA 500 mg/dL (Negative); Leukocyte Esterase Urine Trace (Negative); Nitrite Urine Negative (Negative); UMIC TRIGGER UACC YES; Urine Blood Negative (Negative); Urine Ketones Negative (Negative); Urine Protein Negative (Neg-Trace)
[2024-03-20 06:38] LABS: Bacteria Urine None Seen (None Seen); Hyaline Casts Urine 0-2 /LPF (0-2); RBC Urine 0-2 /HPF (0-2); Squamous Epithelial Cell Urine 0-2 /HPF (0-2); WBC Urine 0-5 /HPF (0-5)
[2024-03-20 07:30] LABS: Glucose, Whole Blood 171 mg/dL (60-115)
--- NOTE | 2024-03-20 11:31 | MHC.CM.ED ---
Received case management consult overnight. Patient came to the ER d/t blurry vision and nausea. Work up essentially negative. Physical therapy eval completed. Rehab is recommended. Met with patient in regards to discharge planning. Patient lives with her daughter, uses cane/walker for mobility and had no services prior to coming to the hospital. PCP verified. Patient is declining the need for rehab at this time. Patient states her daughter, Yazmin, will be able to assist her. T/W spoke with Yazmin via telephone at [phone], with patient's permission. Yazmin would prefer patient go to [facility] if that is recommended but understands patient has the ability to make her own decisions. Yazmin will be here at 1pm to transport patient home. [facility] will be arranged for retirement and physical therapy. Patient, Joya Arce RN and Radha DUMONT aware. Continue to monitor for d/c needs.
--- NOTE | 2024-03-20 13:01 | MHC.EDTECH ---
This tech answered call brown. Patient requesting to use commode. This tech assisted patient to stand and pivot to commode. Call brown placed with in reach and instructions for patient to ring when finished for assistance back to bed.
== END 2024-03-20 14:02 | disposition home or self-care (01) ==
PROVIDERS: Physician Assistant Medical; Emergency Provider Emergency Medicine; PCP Pediatrics
DX: R42 Dizziness and giddiness (principal); R11.0 Nausea; R51.9 Headache, unspecified; H53.8 Other visual disturbances; E11.9 Type 2 diabetes mellitus without complications; M79.641 Pain in right hand; R26.2 Difficulty in walking, not elsewhere classified; R00.1 Bradycardia, unspecified; R53.1 Weakness; M25.531 Pain in right wrist; R94.31 Abnormal electrocardiogram [ECG] [EKG]; Z79.4 Long term (current) use of insulin; Z03.818 Encounter for observation for suspected exposure to other biological agents ruled out; Z79.899 Other long term (current) drug therapy
CPT/HCPCS: 0241U; 70450; 73110; 73130; 80053; 81001; 82947; 83735; 84484; 85025; 93005; 96361; 96374; 97162; 99284; 99285

== ENCOUNTER → 2024-03-19 19:29 | Outpatient (BNV) | payer MEDICARE, MEDICAID, SELFPAY | PROVIDERS: Emergency Provider Emergency Medicine; PCP Pediatrics; Visit Provider Internal Medicine | DX: R00.1 Bradycardia, unspecified (principal) | CPT/HCPCS: 93010 ==

== ENCOUNTER 2024-04-20 10:16 | Outpatient (REF) | payer MEDICARE, MEDICAID, SELFPAY ==
[2024-04-20 15:19] LABS: Alanine Aminotransferase 9 U/L (0-31); Albumin Level 4.3 g/dL (3.5-5.0); Alkaline Phosphatase 96 U/L (39-117); Anion Gap 12 (12-20); Aspartate Amino Transferase 17 U/L (5-31); Bilirubin Direct 0.2 mg/dL (0.0-0.5); Bilirubin Total 0.5 mg/dL (0.0-1.0); Blood Urea Nitrogen 7 mg/dL (9-16); Calcium 11.8 mg/dL (8.4-10.2); Carbon Dioxide 28 mmol/L (22-29); Chloride 108 mmol/L (96-108); Estimated Glomerular Filt Rate > 60; Glucose Fasting 60 mg/dL (60-99); Sodium 144 mmol/L (135-145); Total Protein 7.2 g/dL (6.5-8.0)
[2024-04-20 15:34] LABS: TSH reflex Free T4 1.36 uIU/mL (0.32-4.0)
[2024-04-20 15:49] LABS: Folate 7.8 ng/mL (> or = 4.0); Vitamin B12 643 pg/mL (200-900)
== END 2024-04-20 10:17 | disposition home or self-care (01) ==
LOC: HO.CHCLDS 10:16
PROVIDERS: Visit Provider Pediatrics
DX: R41.3 Other amnesia (principal); E11.65 Type 2 diabetes mellitus with hyperglycemia; Z79.4 Long term (current) use of insulin
CPT/HCPCS: 36415; 80048; 80076; 82607; 82746; 84443

== ENCOUNTER 2024-04-27 10:58 | Outpatient (REF) | payer MEDICARE, MEDICAID, SELFPAY ==
[2024-04-27 14:21] LABS: Appearance Urine Clear; Color Urine Yellow; Glucose Urine UA 100 mg/dL (Negative); Leukocyte Esterase Urine Moderate (2+) (Negative); Nitrite Urine Negative (Negative); PH 5.5 (5.0-9.0); Specific Gravity - Urine 1.025 (1.005-1.025); UMIC TRIGGER UACC YES; Urine Blood Negative (Negative); Urine Ketones Trace mg/dL (Negative); Urine Protein Trace mg/dL (Neg-Trace)
[2024-04-27 14:52] LABS: Bacteria Urine None Seen (None Seen); Hyaline Casts Urine 0-2 /LPF (0-2); RBC Urine 0-2 /HPF (0-2); UACC Culture Trigger YES; WBC Urine 21-50 /HPF (0-5)
== END 2024-04-27 10:59 | disposition home or self-care (01) ==
LOC: HO.CHCLNP 10:58
PROVIDERS: Visit Provider Pediatrics
DX: E11.65 Type 2 diabetes mellitus with hyperglycemia (principal); R41.3 Other amnesia; Z79.4 Long term (current) use of insulin
CPT/HCPCS: 81001; 87086

== ENCOUNTER 2024-05-08 14:32 | Observation (INO) | payer MEDICARE, MEDICAID, SELFPAY ==
[2024-05-08] VITALS (7 sets, daily range): BP systolic 125–154; BP diastolic 48–77; PULSE 57–68; RESP 12–18; TEMP 36.5–36.9; O2SAT 97–100; BMI 25.7
--- NOTE | ~2024-05-08 | CT_ITS ---
EXAMINATION: CT brain and CT cervical spine without contrast. CLINICAL INDICATION: Near syncope and fall. COMPARISON: CT brain 03/19/[address] cervical spine 07/23/2023. TECHNIQUE: 5 mm thin axial and reformatted to millimeters in sagittal and coronal images of brain were obtained. Subsequently axial 5 and 10 and reformatted to millimeters thin sagittal and coronal images of cervical spine were obtained. DLP 1007. This CT examination was performed using dose optimization technique as appropriate, variously including the following: Automated exposure control Adjustment of MA and/or KV according to patient size(this includes techniques or standardized protocols for targeted exams where dose is matched to indication/reason for exam; extremities or head. Use of iterative reconstruction techniques. FINDINGS: Brain: Again utilizing is moderate size hyperdense right frontal parasagittal mass measuring 3 cm x 2.5 cm likely calcified meningioma. It is stable. There is no mass effect or midline shift. No acute intra-axial, extra-axial bleed or collection. No acute infarction or lesion. There is diffuse periventricular hypodensity suggestive of chronic small vessel ischemic changes. The lateral ventricles are symmetrical in size and configuration without enlargement. Bone windows reveal no calvarial abnormality. There is no scalp soft tissue abnormality. Bilateral paranasal sinuses and mastoid air cells are well-aerated. Cervical spine: There is mild straightening of cervical lordosis. The vertebral heights, alignment and disc heights are normal. There is no visible acute fracture, dislocation or subluxation seen. The prevertebral soft tissues are normal. The craniovertebral junction and the C1-C2 alignment is normal. The airway is widely patent visualized bilateral parotid and submandibular glands are normal. There is widely patent. The thyroid lobes are heterogeneous and enlarged with a small 6 mm nodule left posterior mid pole. The lung apices are clear. CT/CT cervical spine wo IV con IMPRESSION: No acute intracranial process seen. Stable right frontal parasagittal hypodense calcified meningioma. Mild straightening of cervical lordosis without any visible acute fracture, dislocation or subluxation seen. Electronically signed by: Mark Mcleod MD 05/08/2024 05:33 PM EDT
--- NOTE | ~2024-05-08 | XR_ITS ---
EXAMINATION: XR CHEST CLINICAL INFORMATION: Altered mental status. Near-syncope. COMPARISON: Chest x-ray November 05, 2023 TECHNIQUE: Frontal portable view of the chest was obtained. 4:13 PM FINDINGS: No significant abnormality is noted involving the heart, lungs, mediastinum, bony thorax or soft tissues. XR/XR chest 1V IMPRESSION: Unremarkable examination. Electronically signed by: Juan Hernandez MD 05/08/2024 05:49 PM EDT
--- NOTE | ~2024-05-08 | MR_ITS ---
EXAMINATION: MR BRAIN WITHOUT CONTRAST CLINICAL INFORMATION: Syncope COMPARISON: MRI brain on 07/23/2023 TECHNIQUE: MRI of the brain was obtained using routine sequences without contrast. FINDINGS: Ventricles, sulci and cisterns are dilated. Bilateral frontal and parietal deep white matters show patchy and focal T2 hyperintense lesions. No focal brainstem or cerebellar lesions with abnormal signal can be seen. Diffusion weighted images show no abnormal regional decrease in diffusion. Normal flow voids of major intracerebral blood vessels are seen in the visualized portion. A persistent anterior right parasagittal frontal extra-axial T1 isointense, T2 hypointense mass lesion is seen measuring 3.3 cm in AP diameter, 2.1 cm in width, 2.3 cm in vertical height (previously 3.0 x 2.5 x 2.7 cm). The pituitary gland is atrophic. Optic chiasm is not displaced. Cerebellar tonsils position is normal. Bilateral ethmoid sinuses show mild mucosal thickening. MR/MR head/brain wo con IMPRESSION: 1. Unchanged age-related cerebral atrophy and ischemic white matter lesions compatible with microangiopathy. 2. No acute cerebral infarction is seen. 3. Stable anterior right parasagittal extra-axial dural based mass lesion, compatible with stable meningioma. 4. No evidence of intracranial hemorrhage. 5. Interval resolution of the focal T2 hyperintense lesion in right posterior parasagittal pontomesencephalic junction. Electronically signed by: Esme Escobedo MD 05/10/2024 05:29 PM EDT
--- NOTE | 2024-05-08 14:56 | ECG_ITS ---
Test Reason : SYNCOPE Blood Pressure : / mmHG Vent. Rate : 065 BPM Atrial Rate : 065 BPM P-R Int : 150 ms QRS Dur : 068 ms QT Int : 348 ms P-R-T Axes : 033 -02 052 degrees QTc Int : 361 ms Normal sinus rhythm Minimal voltage criteria for LVH, may be normal variant ( R in aVL ) Borderline ECG When compared with ECG of 19-MAR-2024 20:45, No significant change was found Referred By: Lola Jenkins Electronically Signed By:SHAHEEN GALLAGHER
--- NOTE | 2024-05-08 14:57 | ED_ITS ---
HPI - General Adult General Chief complaint: Syncope Stated complaint: MULTI FALLS IN 24H,DIZZY,SEEN RECENTLY PER EMS Time Seen by Provider: 05/08/24 14:45 Source: patient and EMS Mode of arrival: EMS Limitations: no limitations History of Present Illness ED Provider: DR. Jenkins HPI narrative: 75-year-old female brought in by ambulance for evaluation of multiple fall in the bath 4 days, 4 days ago patient went to pain management clinic at [facility] where she received a shot in the back for chronic pain patient was told she needs to eat and drink for shot. Patient stated that she fell multiple times in the last 4 days today patient was cleaning her bed with a new sheet stated that she feels dizzy and lightheadedness with generalized weakness then she fall, declined any diaphoresis or chest pain or shortness of breath with falling. No weakness, no numbness, no fever, no nausea, no vomiting. Related Data Previous Rx's ?Medication ?Instructions ?Recorded aspirin 81 mg tablet,delayed 81 mg PO DAILY #30 tabs 07/18/23 release blood sugar diagnostic (Borqsstyle #100 ea 07/18/23 In[employer] Test Strips) blood-glucose meter (FreeStyle #1 ea 07/18/23 [place] kit) colchicine 0.6 mg tablet 0.6 mg PO BID PRN pain/gout #14 07/18/23 tabs esomeprazole magnesium 40 mg 40 mg PO DAILY #30 caps 07/18/23 capsule,delayed release ezetimibe 10 mg-rosuvastatin 10 mg 1 tab PO DAILY #30 tabs 07/18/23 tablet (Roszet) glucagon HCl 1 mg solution for 1 mg subcut Q20M PRN hypoglycemia 07/18/23 injection (Glucagon (HCl) #1 ea Emergency Kit) insulin aspart U-100 100 unit/mL 7 unit (0.07 mL) subcut DAILY #15 07/18/23 (3 mL) subcutaneous pen (Novolog mL FlexPen U-100 Insulin aspart) insulin glargine 100 unit/mL (3 16 unit (0.16 mL) subcut QPM #15 mL 07/18/23 mL) subcutaneous pen (Lantus Solostar U-100 Insulin) lancets 28 gauge (FreeStyle #100 ea 07/18/23 Lancets) pregabalin 75 mg capsule 75 mg PO DAILY #30 caps 07/18/23 pregabalin 75 mg capsule 75 mg PO BEDTIME #30 caps 07/23/23 nitrofurantoin 100 mg PO BID #14 caps 08/06/23 monohydrate/macrocrystals 100 mg capsule (Macrobid) aspirin 81 mg tablet,delayed 81 mg PO DAILY #90 tabs 09/11/23 release (Adult Low Dose Aspirin) ezetimibe 10 mg-rosuvastatin 10 mg 1 tab PO DAILY #90 tabs 09/11/23 tablet insulin aspart U-100 100 unit/mL 8 unit (0.08 mL) subcut BID #15 mL 09/11/23 (3 mL) subcutaneous pen (Novolog FlexPen U-100 Insulin aspart) insulin glargine 100 unit/mL (3 20 unit (0.2 mL) subcut QPM #15 mL 09/11/23 mL) subcutaneous pen (Lantus Solostar U-100 Insulin) pantoprazole 40 mg tablet,delayed 40 mg PO DAILY #90 tabs 09/11/23 release (Protonix) pregabalin 75 mg capsule 75 mg PO DAILY #90 caps 09/11/23 sucralfate 1 gram tablet 1 g PO BID #180 tabs 09/11/23 cefuroxime axetil 250 mg tablet 250 mg PO BID 7 days #14 tabs 11/05/23 Allergies Allergy/AdvReac Type Severity Reaction Status Date / Time IV contrast Allergy Intermediate Rash Uncoded 05/08/24 14:56 IBUProfen Allergy Unknown Rash Uncoded 05/08/24 14:56 Pencillin Allergy Unknown Rash Uncoded 05/08/24 14:56 Review of Systems 2 Review of Systems: All other systems are reviewed and are negative Constitutional: Reports as per HPI and Reports no additional constitutional complaints Eyes: Reports as per HPI and Reports no additional eye complaints Reports system reviewed and no additional complaints, except as documented Cardiovascular: Reports as per HPI and Reports no additional cardiovascular complaints Respiratory: Reports as per HPI and Reports no additional respiratory complaints Gastrointestinal: Reports as per HPI and Reports no additional gastrointestinal complaints Genitourinary: Reports no additional female genitourinary complaints Musculoskeletal: Reports no additional musculoskeletal complaints Skin/Breast: Reports system reviewed and no additional complaints, except as docu Psychiatric: Reports no additional psychiatric complaints Endocrine: Reports no additional endocrine complaints Hematologic/Lymphatic: Reports no additional hematologic/lymphatic complaints Allergic/Immunologic: Reports no additional allergic/immunologic complaints Reports system reviewed and no additional complaints, except as documented and Reports Abnormal speech present [facility] Past Medical History Medical History Arthritis Anxiety GERD (gastroesophageal reflux disease) Type 2 diabetes mellitus Surgical History Hx of hand surgery Social History Social History Advance Directives: No Advance Directives Information Provided: No Do you have a plan to hurt others: No Plan Physical Exam ED Vital Signs: Vital Signs - 24 hr 05/08/24 14:45 Temperature 98.5 F Pulse Rate 68 Respiratory Rate 18 Blood Pressure 125/48 L Pulse Oximetry 98 Oxygen Delivery Method Room Air BMI result Body Mass Index 25.7 Vital signs have been reviewed and appear to be correct. Blood pressure elevated. Heart rate normal. Respiratory rate normal. Temperature normal. Oxygen saturation normal. Appearance: Alert. Oriented X3. No acute distress. Head: Normal external exam. Normocephalic. Atraumatic. No [place] signs noted. No raccoon eyes noted Eyes: PERRLA. EOMI. Conjunctiva and sclera normal. Eyelids normal. ENT: TM's Normal. Pharynx normal. Uvula midline. Moist mucous membranes. No trismus noted. No drooling noted. No muffled voice noted. Neck: Normal inspection. Neck supple. FROM. No adenopathy. Thyroid Normal. No meningeal signs. No neck mass noted. CVS: Normal heart rate and rhythm. Heart sound normal. No murmurs noted. Pulses normal throughout. Respiratory: No respiratory distress. Painless inspiration. Breath sounds normal. No wheezes/rales/rhonchi noted. Chest nontender. No accessory muscle usage noted or decreased air movement noted. Abdomen: Soft and nontender. Bowel sounds normal in all 4 quadrants. No distention noted. No organomegaly noted. No visible injury noted. Back: No CVA tenderness. Full range of motion noted. Skin: Skin warm and dry. Normal skin color. Normal skin turgor. No rashes/lesions/lacerations noted. Extremities: No lower extremity edema. Extremities exhibit normal range of motion. Extremities nontender. Neuro: Oriented X 3. Cranial nerve exam: II-XII are grossly intact No motor deficit. No sensory deficit. Reflexes normal. Course Reevaluation(s) Reevaluation #1: near syncopal episode with frequent fall in the last 3 days no injuries. 1. Hyperglycemia patient is diabetic, recently received steroid injection in her back that can raise blood sugar. 2. Lactic acidosis no signs of infection, no SIRS criteria, patient did not give urine sample yet waiting on urine analysis. Time: 18:18 Medications Administered Discontinued Medications Generic Name Dose Route Start Last Admin Trade Name Freq PRN Reason Stop Dose Admin Sodium Chloride 1,000 mls @ 999 mls/hr 05/08/24 14:55 05/08/24 16:33 Ns IV 05/08/24 15:55 999 mls/hr .Q1H1M ONE Administration Medical Decision Making Differential Diagnosis Differential Diagnoses: The differential diagnosis associated with the presentation includes ( Dehydration, electrolyte derangement, syncope due to orthostatic hypotension, severe anemia, infection , lactic acidosis.) Admission/Observation Consideration of admission/observation: Escalation of care including admission/observation considered Consult Healthcare Provider Management of the patient was discussed with: Hospitalist ( Dr. Kee) Lab Data 05/08/24 15:12 05/08/24 15:12 Labs: Lab Results 05/08/24 05/08/24 05/08/24 Range/Units 15:11 15:12 17:45 WBC 11.0 H (4.8-10.8) X10*3/uL RBC 4.76 (4.20-5.50) X10*6/uL Hgb 13.1 (12.0-16.0) g/dl Hct 40.2 (37.0-47.0) % MCV 84.5 (80.0-98.0) fL MCH 27.5 (27.0-33.0) pg MCHC 32.6 (31.0-35.0) g/dl RDW 14.8 (11.0-16.0) % Plt Count 161 (160-400) X10*3/uL MPV 13.6 H (9.4-12.3) fL Immature Gran % (Auto) 0.6 H (0.0-0.4) % Neut % (Auto) 70.2 (45-73) % Lymph % (Auto) 21.7 (20-40) % [place] % (Auto) 7.2 (2-11) % Eos % (Auto) 0.1 (0-4) % Baso % (Auto) 0.2 (0-2) % Lymph # (Auto) 2.4 (1.2-4.9) X10*3/uL [place] # (Auto) 0.8 (0.1-1.2) X10*3/uL Eos # (Auto) 0.0 (0.0-0.4) X10*3/uL Baso # (Auto) 0.0 (0.0-0.2) X10*3/uL Abs Immat Gran (auto) 0.07 H (0.00-0.03) X10*3/uL Absolute Neuts (auto) 7.7 (2.0-8.3) x10*3/uL Absolute Nucleated RBC 0.000 (0.0-0.012) X10*3/uL Nucleated RBC % (auto) 0.0 (0.0-0.2) /100WBC Smear Tech's Comments VERIFIED Sodium 134 L (135-145) mmol/L Potassium 5.4 H D (3.3-5.1) mmol/L Chloride 102 (96-108) mmol/L Carbon Dioxide 26 (22-29) mmol/L Anion Gap 11 L (12-20) BUN 17 H (9-16) mg/dL Creatinine 0.95 (0.5-1.4) mg/dL Estim Creat Clear Calc 52.5 Estimated GFR 58 Random Glucose 367 H* (60-115) mg/dL Lactic Acid 2.7 H* (0.5-2.0) mmol/L Lactic Acid F/U @ 2Hr 3.7 H* (0.5-2.0) mmol/L Calcium 12.2 H (8.4-10.2) mg/dL Total Bilirubin 0.4 (0.0-1.0) mg/dL Direct Bilirubin 0.2 (0.0-0.5) mg/dL AST 8 (5-31) U/L ALT 5 (0-31) U/L Alkaline Phosphatase 87 (39-117) U/L Troponin I High Sens < 2.7 (<3.5-17.0) ng/L B-Natriuretic Peptide < 10 (<100) pg/mL Total Protein 6.7 (6.5-8.0) g/dL Albumin 4.0 (3.5-5.0) g/dL Lipase 26 (8-78) U/L Influenza Type A (PCR) NEGATIVE (Negative) Influenza Type B (PCR) NEGATIVE (Negative) RSV RNA Qual (PCR) NEGATIVE (Negative) SARS-CoV-2 RNA (RT-PCR) NEGATIVE (Negative) Discharge Plan Discharge Clinical Impression: Acidosis, lactic, Near syncope Patient Disposition: Admitted As Inpatient Prescriptions: No Action colchicine 0.6 mg tablet 0.6 mg PO BID PRN (Reason: pain/gout) Qty: 14 0RF pregabalin 75 mg capsule 75 mg PO DAILY Qty: 30 1RF aspirin 81 mg tablet,delayed release (DR/EC) 81 mg PO DAILY Qty: 30 1RF ezetimibe-rosuvastatin [Roszet] 10-10 mg tablet 1 tab PO DAILY Qty: 30 1RF esomeprazole magnesium 40 mg capsule,delayed release(DR/EC) 40 mg PO DAILY Qty: 30 1RF insulin glargine [Lantus Solostar U-100 Insulin] 100 unit/mL (3 mL) insulin pen 16 unit subcut QPM Qty: 15 0RF insulin aspart U-100 [Novolog FlexPen U-100 Insulin] 100 unit/mL (3 mL) insulin pen 7 unit subcut DAILY Qty: 15 0RF (DME) blood-glucose meter [FreeStyle [place]] Kit See Rx Instructions .Route Qty: 1 0RF Rx Instructions: As directed (DME) Freestyle [employer] Test Strips Strip See Rx Instructions .Route Qty: 100 0RF Rx Instructions: As directed (DME) lancets [FreeStyle Lancets] 28 gauge misc See Rx Instructions .Route Qty: 100 0RF Rx Instructions: As directed glucagon HCl [Glucagon (HCl) Emergency Kit] 1 mg recon soln 1 mg subcut Q20M PRN (Reason: hypoglycemia) Qty: 1 0RF Rx Instructions: until target blood sugar attained pregabalin 75 mg capsule 75 mg PO BEDTIME Qty: 30 0RF cefuroxime axetil 250 mg tablet 250 mg PO BID 7 Days Qty: 14 0RF nitrofurantoin monohyd/m-cryst [Macrobid] 100 mg capsule 100 mg PO BID Qty: 14 0RF Rx Instructions: must administer with a meal/food ezetimibe-rosuvastatin 10-10 mg tablet 1 tab PO DAILY Qty: 90 3RF insulin aspart U-100 [Novolog FlexPen U-100 Insulin] 100 unit/mL (3 mL) insulin pen 8 unit subcut BID Qty: 15 3RF pregabalin 75 mg capsule 75 mg PO DAILY Qty: 90 3RF pantoprazole [Protonix] 40 mg tablet,delayed release (DR/EC) 40 mg PO DAILY Qty: 90 3RF sucralfate 1 gram tablet 1 g PO BID Qty: 180 3RF aspirin [Adult Low Dose Aspirin] 81 mg tablet,delayed release (DR/EC) 81 mg PO DAILY Qty: 90 3RF insulin glargine [Lantus Solostar U-100 Insulin] 100 unit/mL (3 mL) insulin pen 20 unit subcut QPM Qty: 15 3RF Print Language: Romansh
[2024-05-08 15:21] LABS: Eosinophils Percent Auto 0.1 % (0-4); Imm Gran Pct Auto 0.6 % (0.0-0.4); MANUAL DIFF FLAG SCAN; Mean Corpuscular Volume 84.5 fL (80.0-98.0); SCAN SMEAR FLAG 1
[2024-05-08 15:23] LABS: Basophils Percent Auto 0.2 % (0-2); Hematocrit 40.2 % (37.0-47.0); Hemoglobin 13.1 g/dl (12.0-16.0); Imm Gran Abs Auto 0.07 X10*3/uL (0.00-0.03); Lymphocytes Absolute Auto 2.4 X10*3/uL (1.2-4.9); Lymphocytes Percent Auto 21.7 % (20-40); Mean Corpuscular HGB Conc 32.6 g/dl (31.0-35.0); Mean Corpuscular Hemoglobin 27.5 pg (27.0-33.0); Monocytes Absolute Auto 0.8 X10*3/uL (0.1-1.2); Monocytes Percent Auto 7.2 % (2-11); Neutrophils Absolute Auto 7.7 x10*3/uL (2.0-8.3); Neutrophils Percent Auto 70.2 % (45-73); PLT ABN DIST 1; PLT CLUMP 1; Red Blood Count 4.76 X10*6/uL (4.20-5.50); Red Cell Distribution Width 14.8 % (11.0-16.0)
[2024-05-08 15:38] LABS: Lactic Acid 2.7 mmol/L (0.5-2.0)
[2024-05-08 15:40] LABS: Alanine Aminotransferase 5 U/L (0-31); Alkaline Phosphatase 87 U/L (39-117); Anion Gap 11 (12-20); Aspartate Amino Transferase 8 U/L (5-31); Bilirubin Direct 0.2 mg/dL (0.0-0.5); Bilirubin Total 0.4 mg/dL (0.0-1.0); Blood Urea Nitrogen 17 mg/dL (9-16); Calcium 12.2 mg/dL (8.4-10.2); Carbon Dioxide 26 mmol/L (22-29); Chloride 102 mmol/L (96-108); Creatinine Clr Calc Pharmacy 52.5; Estimated Glomerular Filt Rate 58; Glucose Random 367 mg/dL (60-115); Lipase 26 U/L (8-78); Potassium 5.4 mmol/L (3.3-5.1); Sodium 134 mmol/L (135-145); Total Protein 6.7 g/dL (6.5-8.0)
[2024-05-08 15:41] LABS: B Type Natriuretic Peptide < 10 pg/mL (<100)
[2024-05-08 15:45] LABS: Troponin-I High Sensitivity < 2.7 ng/L (<3.5-17.0)
[2024-05-08 15:55] LABS: Mean Platelet Volume 13.6 fL (9.4-12.3); Platelet Count 161 X10*3/uL (160-400); SLIDE REVIEW VERIFIED
[2024-05-08 16:23] LABS: Influenza A PCR NEGATIVE (Negative); Influenza B PCR NEGATIVE (Negative); Resp Syncy Virus RNA Qual PCR NEGATIVE (Negative); SARS COV2 PCR INHOUSE NEGATIVE (Negative)
[2024-05-08] MEDS: 0.9 % Sodium Chloride 1,000 ML 999 ML IV ×2 (16:33→19:12)
[2024-05-08 17:17] LABS: Reflex Lactate? Lactic Acid Added
[2024-05-08 18:10] LABS: ~Lactic Acid-LAB USE ONLY 3.7 mmol/L (0.5-2.0)
[2024-05-08 18:57] LABS: Glucose, Whole Blood 211 mg/dL (60-115)
--- NOTE | 2024-05-08 19:04 | P.HPHOSP_ITS ---
History of Present Illness Date of Service: 05/08/24 Attending physician on admission: Edgar Kee Chief Complaint: lightheadedness 74-year-old female with history of insulin-dependent type 2 diabetes, GERD, mood disorder, hyperlipidemia, chronic low back pain, and polyneuropathy presented to the ED earlier today for evaluation of lightheadedness with at least 4 falls in the last 4 days. She was recently seen at pain management clinic at [facility] where she received a cortisone injection in the back for chronic pain. Since then, she has been having increased urination with elevated glucose levels and has been unable to keep up with oral hydration. Upon waking every morning she feels lightheaded and has fallen forward without any head injury or loss of consciousness. She is ambulatory at baseline. No other prodrome including vision changes, headache, shortness of breath, palpitations, chest pain. No recent illness. No nausea, vomiting, dysuria, diarrhea. Since arrival, vitals have been stable, no hypotension. There is a mild leukocytosis of 11.0, likely steroid induced. Renal function is baseline, electrolytes significant for sodium 134, potassium 5.4, and calcium 12.2. Initial glucose 367 improved to 11 with IV fluids. Initial lactic acid 2.7, repeat 3.7. Troponin undetectable, BNP undetectable. Negative for COVID flu, RSV. Head CT negative for acute intracranial abnormality which shows stable right frontal parasagittal hypodense calcified meningioma. Cervical spine CT shows mild straightening of cervical lordosis without any visible acute fracture, dislocation or subluxation. Chest x-ray unremarkable. In the ED, given 20 units Lantus and 2 L IVF now on maintenance IVF. Review of Systems 2 Review of Systems: Yes all other systems are reviewed and are negative [facility] Medical History Polyneuropathy Hyperlipidemia Arthritis Anxiety GERD (gastroesophageal reflux disease) Type 2 diabetes mellitus Surgical History Hx of hand surgery Social History Advance Directives: No Advance Directives Information Provided: No Do you have a plan to hurt others: No Plan Meds Allergies Allergy/AdvReac Type Severity Reaction Status Date / Time IV contrast Allergy Intermediate Rash Uncoded 05/08/24 14:56 IBUProfen Allergy Unknown Rash Uncoded 05/08/24 14:56 Pencillin Allergy Unknown Rash Uncoded 05/08/24 14:56 Active Medications: Current Medications Acetaminophen (Acetaminophen 325 Mg Tablet) 650 mg PO Q6H PRN PRN Reason: Pain, Mild (Pain Scale 1-3), fever or headache Calcium Carbonate (Calcium Carbonate 750 Mg Tab.Chew) 750 mg PO Q4H PRN PRN Reason: Heartburn Glucose (Glucose Gel 15 Gm Gel..Gram.) 15 gm PO Q15M PRN; Protocol PRN Reason: per Hypoglycemia Standing Ord. Sodium Chloride (Ns) 1,000 mls @ 999 mls/hr IV .Q1H1M ONE Stop: 05/08/24 19:27 Dextrose (D10) 250 mls @ 750 mls/hr IV Q15M PRN; Protocol PRN Reason: per Hypoglycemia Standing Ord. Sodium Chloride (Ns) 1,000 mls @ 100 mls/hr IVCONT .Q10H [facility] Insulin Human Lispro (Insulin Lispro 100 Unit/Ml 3 Ml Vial) 0 unit SUBCUT QIDAS [facility]; Protocol Magnesium Hydroxide (Milk Of Magnesia 30 Ml Oral.Susp) 30 ml PO DAILY PRN PRN Reason: Constipation Melatonin (Melatonin 3 Mg Tablet) 6 mg PO BEDTIME PRN PRN Reason: Insomnia Sodium Chloride (0.9 % Sodium Chloride Flush 3 Ml Syringe) 3 [facility] Medications ?Medication ?Instructions ?Recorded ?Confirmed ?Last Taken ?Type cetirizine 10 mg tablet 10 mg PO QAM 05/08/24 Unknown History cyanocobalamin (vitamin B-12) 1,000 mcg PO DAILY 05/08/24 Unknown History 1,000 mcg tablet ezetimibe 10 mg tablet 10 mg PO QAM 05/08/24 Unknown History fluoxetine 20 mg tablet 20 mg PO DAILY 05/08/24 Unknown History fluticasone propionate 50 spray intranasal 05/08/24 Unknown History mcg/actuation nasal spray,suspension insulin glargine 100 unit/mL (3 25 unit subcut QPM 05/08/24 Unknown History mL) subcutaneous pen (Lantus Solostar U-100 Insulin) lidocaine 5 % topical patch 1 patch topical DAILY 05/08/24 Unknown History lisinopril 5 mg tablet 5 mg PO DAILY 05/08/24 Unknown History meclizine 25 mg tablet 25 mg PO TID PRN dizziness 05/08/24 Unknown History metformin 1,000 mg tablet 1,000 mg PO BID 05/08/24 Unknown History rosuvastatin 10 mg tablet 10 mg PO QAM 05/08/24 Unknown History sitagliptin phosphate 100 mg 100 mg PO QAM 05/08/24 Unknown History tablet (Januvia) Physical Exam 2 Vital Signs and Narrative: Vital Signs: Last Vital Signs Temp 98.5 F 05/08/24 14:45 Pulse 68 05/08/24 14:45 Resp 18 05/08/24 14:45 BP 125/48 L 05/08/24 14:45 Pulse Ox 98 05/08/24 14:45 O2 Del Method Room Air 05/08/24 14:45 BMI result Body Mass Index 25.7 Constitutional - Awake and Alert, No apparent distress Eyes - PERRLA, EOMI Cardiovascular - S1S2, RRR, No edema Respiratory - Normal lung expansion, Normal respiratory effort, No respiratory distress, CTA bilaterally Gastrointestinal - NT / ND; +BS; No rebound or guarding Extremities - no calf tenderness bilaterally, no swelling Skin - Warm/Dry Neurological - Alert & oriented x3, moving all extremities, CN II-XII in tact, 5/5 strength BUE and BLE Psychological - Appropriate affect Results Labs 05/08/24 15:12 05/08/24 15:12 Labs: Laboratory Results - last 24 hr 05/08/24 05/08/24 05/08/24 15:11 15:12 17:45 MCV 84.5 MCH 27.5 MCHC 32.6 RDW 14.8 Plt Count 161 MPV 13.6 H Immature Gran % (Auto) 0.6 H Neut % (Auto) 70.2 Lymph % (Auto) 21.7 [place] % (Auto) 7.2 Eos % (Auto) 0.1 Baso % (Auto) 0.2 Lymph # (Auto) 2.4 [place] # (Auto) 0.8 Eos # (Auto) 0.0 Baso # (Auto) 0.0 Abs Immat Gran (auto) 0.07 H Absolute Neuts (auto) 7.7 Absolute Nucleated RBC 0.000 Nucleated RBC % (auto) 0.0 Smear Tech's Comments VERIFIED Anion Gap 11 L Estim Creat Clear Calc 52.5 Estimated GFR 58 POC Glucose Random Glucose 367 H* Lactic Acid 2.7 H* Lactic Acid F/U @ 2Hr 3.7 H* Calcium 12.2 H Total Bilirubin 0.4 Direct Bilirubin 0.2 AST 8 ALT 5 Alkaline Phosphatase 87 Troponin I High Sens < 2.7 B-Natriuretic Peptide < 10 Total Protein 6.7 Albumin 4.0 Lipase 26 Influenza Type A (PCR) NEGATIVE Influenza Type B (PCR) NEGATIVE RSV RNA Qual (PCR) NEGATIVE SARS-CoV-2 RNA (RT-PCR) NEGATIVE 05/08/24 18:53 MCV MCH MCHC RDW Plt Count MPV Immature Gran % (Auto) Neut % (Auto) Lymph % (Auto) [place] % (Auto) Eos % (Auto) Baso % (Auto) Lymph # (Auto) [place] # (Auto) Eos # (Auto) Baso # (Auto) Abs Immat Gran (auto) Absolute Neuts (auto) Absolute Nucleated RBC Nucleated RBC % (auto) Smear Tech's Comments Anion Gap Estim Creat Clear Calc Estimated GFR POC Glucose 211 H Random Glucose Lactic Acid Lactic Acid F/U @ 2Hr Calcium Total Bilirubin Direct Bilirubin AST ALT Alkaline Phosphatase Troponin I High Sens B-Natriuretic Peptide Total Protein Albumin Lipase Influenza Type A (PCR) Influenza Type B (PCR) RSV RNA Qual (PCR) SARS-CoV-2 RNA (RT-PCR) Imaging Radiologist's Impressions: Impressions Cervical Spine CT 05/08/24 14:55 IMPRESSION: No acute intracranial process seen. Stable right frontal parasagittal hypodense calcified meningioma. Mild straightening of cervical lordosis without any visible acute fracture, dislocation or subluxation seen. Electronically signed by: Mark Mcleod MD 05/08/2024 05:33 PM EDT RP Chest X-Ray 05/08/24 14:56 IMPRESSION: Unremarkable examination. Electronically signed by: Juan Hernandez MD 05/08/2024 05:49 PM EDT RP Head CT 05/08/24 16:20 IMPRESSION: No acute intracranial process seen. Stable right frontal parasagittal hypodense calcified meningioma. Mild straightening of cervical lordosis without any visible acute fracture, dislocation or subluxation seen. Electronically signed by: Mark Mcleod MD 05/08/2024 05:33 PM EDT RP Assessment and Plan (1) Near syncope: Status: Acute Plan 74-year-old female with history of insulin-dependent type 2 diabetes, GERD, mood disorder, hyperlipidemia, chronic low back pain, and polyneuropathy to be observed for near syncope #Orthostatic near syncope -likely r/t dehydration from hyperglycemia -Continue IVF -Check orthostatics now and in am -Head CT negative for acute intracranial abnormality -monitor on tele #ACute hyperkalemia -due to hyperglycemia -IVF -follow lytes #Acute lactic acidosis -due to hypoperfusion/hypovolemia -ivf -not severe sepsis #Insulin dependent type 2 diabetes with steroid induced hyperglycemia -Check hgb a1c -continue ivf -Given 20 units lantus. Awaiting med rec -poc glucose, diabetic diet -admelog on ss -may need further insulin adjustment #Acute on chronic hypercalcemia -likely multifactorial -continue ivf -check pth and vitamin d level -follow #chronic low back pain with radiculopathy -s/p cortisone injection. outpt follow up with pain management -[facility] #GERD -PPI, Carafate # hyperlipidemia -statin DVT prophylaxis-lovenox full code Quality Stroke Does the patient have a stroke diagnosis?: No VTE Prior VTE?: No VTE Risk Level:: Medical - moderate - high VTE Device Contraindication: N/A - Device Ordered VTE Drug Contraindication: N/A - Med Ordered
[2024-05-08] MEDS: 0.9 % Sodium Chloride 1,000 ML 100 ML IVCONT (19:12)
[2024-05-08] MEDS: Insulin Glargine,Hum.rec.anlog 100 UNIT/ML 10 ML VIAL 20 UNIT SUBCUT (19:13)
--- NOTE | 2024-05-08 19:18 | PC.NURSE ---
this rn assumed care of pt, pt a&ox4, respirations even and unlabored. pt assisted to bedside commode, denied dizziness, urine sample obtained. pt medicated per oct. POC 211. Orthos completed, provider aware. pt reported some dizziness on standing but denies sob. pt normal sinus on tele 60-62bpm.
[2024-05-08] MEDS: Enoxaparin Sodium 40 MG/0.4 ML SYRINGE SUBCUT (19:26)
[2024-05-08 19:29] LABS: Appearance Urine Clear; Color Urine Yellow; Glucose Urine UA >=1000 mg/dL (Negative); Leukocyte Esterase Urine Negative (Negative); Nitrite Urine Negative (Negative); PH 5.5 (5.0-9.0); Specific Gravity - Urine 1.025 (1.005-1.025); UMIC TRIGGER UACC YES; Urine Blood Negative (Negative); Urine Ketones Negative (Negative); Urine Protein Negative (Neg-Trace)
[2024-05-08 19:49] LABS: Reflex Lactate? 2 Y
[2024-05-08 20:10] LABS: Bacteria Urine 1+ (None Seen); RBC Urine 0-2 /HPF (0-2); Squamous Epithelial Cell Urine 0-2 /HPF (0-2); WBC Urine 0-5 /HPF (0-5)
[2024-05-08 20:11] LABS: Hyaline Casts Urine 0-2 /LPF (0-2)
[2024-05-08 20:46] LABS: ~Lactic Acid-LAB USE ONLY 4.2 mmol/L (0.5-2.0)
[2024-05-08 20:47] LABS: Anion Gap 15 (12-20); Blood Urea Nitrogen 15 mg/dL (9-16); Calcium 10.7 mg/dL (8.4-10.2); Carbon Dioxide 16 mmol/L (22-29); Chloride 111 mmol/L (96-108); Creatinine Clr Calc Pharmacy 60.9; Estimated Glomerular Filt Rate > 60; Glucose Random 315 mg/dL (60-115); Potassium 5.5 mmol/L (3.3-5.1); Sodium 136 mmol/L (135-145)
--- NOTE | 2024-05-08 20:56 | PC.NURSE ---
this rn at bedside to help pt to bedside commode. pt urinated 300ml. pt reports some dizziness upon standing. pt assisted back to bed.
--- NOTE | 2024-05-08 21:12 | PHA.MEDREC ---
Addendum entered by Eric Domingo 05/08/24 21:19: reviewed Original Note: Pharmacy Consult ? Medication Reconciliation Pharmacy has completed the medication reconciliation. Spoke to patient to confirm med list. Patient states she is no longer taking Aspirin 81 mg , and Lidocain patches. Patient confirmed Novolog Flexpen is 10 units bid per sliding scale and Lantus SoloStar is 20 units at bedtime.
[2024-05-08 21:22] LABS: Glucose, Whole Blood 268 mg/dL (60-115)
[2024-05-08] MEDS: Insulin Lispro 100 UNIT/ML 3 ML VIAL SUBCUT (21:28)
[2024-05-08] MEDS: 0.9 % Sodium Chloride 500 ML IV (21:28)
--- NOTE | 2024-05-08 21:30 | PC.NURSE ---
pt medicated per mar, poc [id number]
[2024-05-09] VITALS (7 sets, daily range): BP systolic 130–158; BP diastolic 48–73; PULSE 56–64; RESP 16–20; TEMP 36.5–36.6; O2SAT 99–100; BMI 25.9
--- NOTE | 2024-05-09 00:33 | PC.NURSE ---
pt IV access noted to be infiltrated at this time, pt reports pain to site. IV fluids stopped, IV removed, plan for new IV access.
--- NOTE | 2024-05-09 01:31 | PC.NURSE ---
20G placed in right basilic vein, ultrasound guided, tolerated well.
[2024-05-09] MEDS: Acetaminophen 325 MG TABLET 650 MG PO (01:41)
--- NOTE | 2024-05-09 01:44 | PC.NURSE ---
pt medicated per oct, tolerated well with water, for 5/10 bilateral arm, pain, per , give Tylenol. pt offered hospital bed at this time, pt declined and stated she was comfortable in stretcher.
[2024-05-09] MEDS: 0.9 % Sodium Chloride 1,000 ML 100 ML IVCONT ×3 (06:01→22:42)
[2024-05-09 06:34] LABS: MANUAL DIFF FLAG NO
[2024-05-09 06:37] LABS: Basophils Percent Auto 0.1 % (0-2); Eosinophils Percent Auto 0.1 % (0-4); Hematocrit 34.2 % (37.0-47.0); Hemoglobin 10.8 g/dl (12.0-16.0); Imm Gran Abs Auto 0.04 X10*3/uL (0.00-0.03); Imm Gran Pct Auto 0.5 % (0.0-0.4); Lymphocytes Percent Auto 24.6 % (20-40); Mean Corpuscular HGB Conc 31.6 g/dl (31.0-35.0); Mean Corpuscular Hemoglobin 27.1 pg (27.0-33.0); Mean Corpuscular Volume 85.7 fL (80.0-98.0); Mean Platelet Volume 12.5 fL (9.4-12.3); Monocytes Absolute Auto 0.6 X10*3/uL (0.1-1.2); Monocytes Percent Auto 7.6 % (2-11); Neutrophils Absolute Auto 5.4 x10*3/uL (2.0-8.3); Neutrophils Percent Auto 67.1 % (45-73); Platelet Count 131 X10*3/uL (160-400); Red Blood Count 3.99 X10*6/uL (4.20-5.50); Red Cell Distribution Width 14.7 % (11.0-16.0); White Blood Count 8.1 X10*3/uL (4.8-10.8)
[2024-05-09 06:43] LABS: Glucose, Whole Blood 102 mg/dL (60-115)
[2024-05-09 07:03] LABS: Parathyroid Hormone Intact 309.8 pg/mL (8.7-77.1)
[2024-05-09 07:12] LABS: Estimated Average Glucose 189 mg/dL; Hemoglobin A1C 184.6533 umol/L; Hemoglobin A1c % 8.2 % (<6.0); Total Hemoglobin (HGBA1C) 2813.5148 umol/L
[2024-05-09 07:16] LABS: Blood Urea Nitrogen 10 mg/dL (9-16); Calcium 10.6 mg/dL (8.4-10.2); Creatinine Clr Calc Pharmacy 76.8; Estimated Glomerular Filt Rate > 60; Glucose Random 118 mg/dL (60-115); Phosphorus 2.8 mg/dL (2.7-4.5)
[2024-05-09 07:18] LABS: Vitamin D 25-OH Total 15.4 ng/mL (>30)
[2024-05-09 07:32] LABS: Anion Gap 9 (12-20); Carbon Dioxide 21 mmol/L (22-29); Chloride 114 mmol/L (96-108); Potassium 4.3 mmol/L (3.3-5.1); Sodium 140 mmol/L (135-145)
--- NOTE | 2024-05-09 08:26 | P.CNNE_ITS ---
History of Present Illness Data of Consult Service Date: 05/09/24 Primary Care Provider: Lilliana Esparza MD HPI Reason for consult: Syncope 74 years old woman with a large right frontal extra-axial intracranial mass, probably a meningioma, came to hospital after falling few times. When I saw her she was in emergency room and was sobbing stating that she had been falling for no reason. Apparently she has reported feeling dizzy lightheaded generally weak and then falling. When I asked her if she passed out, she said she did not know what happened. There was no preceding chest pain or palpitation. There was no preceding headache. She has been getting treatment for back pain and had received an injection treatment recently. In emergency room her blood pressure was not low, and there was no obvious infectious or metabolic etiology of her falling or passing out. Review of Systems 2 Review of Systems: No recent cold or flu-like illness PMFSH Past Medical History Medical History Polyneuropathy Hyperlipidemia Arthritis Anxiety GERD (gastroesophageal reflux disease) Type 2 diabetes mellitus Surgical History Surgical History Hx of hand surgery Social History Social History Patient Tobacco Use Status: Never used Tobacco Smoked in Last 30 Days: No Use of substances other than those prescribed or required for medical reasons: No Advance Directives: No Advance Directives Information Provided: No Do you have a plan to hurt others: No Plan Nutrition Risks: No Nutritional Risk Meds Allergies Allergy/AdvReac Type Severity Reaction Status Date / Time IV contrast Allergy Intermediate Rash Uncoded 05/08/24 14:56 IBUProfen Allergy Unknown Rash Uncoded 05/08/24 14:56 Pencillin Allergy Unknown Rash Uncoded 05/08/24 14:56 Active Medications: Current Medications Acetaminophen (Acetaminophen 325 Mg Tablet) 650 mg PO Q6H PRN PRN Reason: Pain, Mild (Pain Scale 1-3), fever or headache Last Admin: 05/09/24 01:41 Dose: 650 mg Atorvastatin Calcium (Atorvastatin Calcium 40 Mg Tablet) 40 mg PO DAILY [facility]I Calcium Carbonate (Calcium Carbonate 750 Mg Tab.Chew) 750 mg PO Q4H PRN PRN Reason: Heartburn Colchicine (Colchicine 0.6 Mg Tablet) 0.6 mg PO BID PRN PRN Reason: pain/gout Cyanocobalamin (Cyanocobalamin (Vitamin B-12) 1,000 Mcg Tablet) 1,000 mcg PO BEDTIME [facility] Ezetimibe (Ezetimibe 10 Mg Tablet) 10 mg PO DAILY [facility] Enoxaparin Sodium (Enoxaparin Sodium 40 Mg/0.4 Ml Syringe) 40 mg SUBCUT Q24H [facility] Last Admin: 05/08/24 19:26 Dose: 40 mg Fluoxetine HCl (Fluoxetine Hcl 20 Mg Capsule) 20 mg PO DAILY [facility] Fluticasone Propionate (Fluticasone Propionate Nasal 16 Gm Terrell) 1 spray NOSTRIL-B DAILY PRN PRN Reason: Allergy Symptoms Glucose (Glucose Gel 15 Gm Gel..Gram.) 15 gm PO Q15M PRN; Protocol PRN Reason: per Hypoglycemia Standing Ord. Dextrose (D10) 250 mls @ 750 mls/hr IV Q15M PRN; Protocol PRN Reason: per Hypoglycemia Standing Ord. Sodium Chloride (Ns) 1,000 mls @ 100 mls/hr IVCONT .Q10H [facility] Last Admin: 05/09/24 06:01 Dose: 100 mls/hr Insulin Human Lispro (Insulin Lispro 100 Unit/Ml 3 Ml Vial) 0 unit SUBCUT QIDACHS [facility]; Protocol Last Admin: 05/09/24 08:09 Dose: Not Given Lisinopril (Lisinopril 5 Mg Tablet) 5 mg PO DAILY [facility]; Protocol Loratadine (Loratadine 10 Mg Tablet) 10 mg PO DAILY [facility] Magnesium Hydroxide (Milk Of Magnesia 30 Ml Oral.Susp) 30 ml PO DAILY PRN PRN Reason: Constipation Meclizine HCl (Meclizine Hcl 25 Mg Tablet) 25 mg PO TID PRN PRN Reason: dizziness Melatonin (Melatonin 3 Mg Tablet) 6 mg PO BEDTIME PRN PRN Reason: Insomnia Omeprazole (Omeprazole 20 Mg Capsule.Dr) 20 mg PO DAILY@0630 [facility] Pregabalin (Pregabalin 75 Mg Capsule) 75 mg PO BEDTIME [facility] Sitagliptin Phosphate (Sitagliptin Phosphate 100 Mg Tablet) 100 mg PO DAILY [facility] Sodium Chloride (0.9 % Sodium Chloride Flush 3 Ml Syringe) 3 ml IVFLUSH QSHIFT [facility] Last Admin: 05/09/24 08:10 Dose: Not Given Sucralfate (Sucralfate 1 Gm Tablet) 1 gm PO BID [facility] Home Medications ?Medication ?Instructions ?Recorded ?Confirmed ?Last Taken ?Type cetirizine 10 mg tablet 10 mg PO DAILY 05/08/24 05/08/24 05/08/24 History cyanocobalamin (vitamin B-12) 1,000 mcg PO BEDTIME 05/08/24 05/08/24 05/07/24 History 1,000 mcg tablet ezetimibe 10 mg tablet 10 mg PO DAILY 05/08/24 05/08/24 05/08/24 History fluoxetine 20 mg tablet 20 mg PO DAILY 05/08/24 05/08/24 05/08/24 History fluticasone propionate 50 1 spray intranasal DAILY PRN 05/08/24 05/08/24 Unknown History mcg/actuation nasal Allergy Symptoms spray,suspension insulin aspart U-100 100 unit/mL 10 unit subcut BID 05/08/24 05/08/24 05/08/24 History (3 mL) subcutaneous pen (Novolog FlexPen U-100 Insulin aspart) insulin glargine 100 unit/mL (3 20 unit subcut BEDTIME 05/08/24 05/08/24 05/08/24 History mL) subcutaneous pen (Lantus Solostar U-100 Insulin) lisinopril 5 mg tablet 5 mg PO DAILY 05/08/24 05/08/24 05/08/24 History meclizine 25 mg tablet 25 mg PO TID PRN dizziness 05/08/24 05/08/24 Unknown History metformin 1,000 mg tablet 1,000 mg PO BID 05/08/24 05/08/24 05/08/24 History pantoprazole 40 mg tablet,delayed 40 mg PO DAILY@0630 05/08/24 05/08/24 05/08/24 History release (Protonix) rosuvastatin 10 mg tablet 10 mg PO DAILY 05/08/24 05/08/24 05/08/24 History sitagliptin phosphate 100 mg 100 mg PO DAILY 05/08/24 05/08/24 05/08/24 History tablet (Januvia) Physical Exam 2 Vital Signs: Vital Signs: Last Vital Signs Temp 97.7 F 05/09/24 05:30 Pulse 56 05/09/24 05:30 Resp 17 05/09/24 05:30 BP 158/50 H 05/09/24 05:30 Pulse Ox 99 05/09/24 05:30 O2 Del Method Room Air 05/09/24 05:30 BMI result Body Mass Index 25.7 Neuro: Other: She is alert and awake with normal spontaneity of speech fluency comprehension and depressed affect. Face is symmetrical. Visual marcano are full. There is mild right pronator drift. Deep tendon reflexes are absent with flexor plantars. She was easily able to lift her left leg up but has difficulty lifting right. Results Labs 05/09/24 06:23 05/09/24 06:23 Labs: Short CBC 05/08/24 05/09/24 Range/Units 15:12 06:23 WBC 11.0 H 8.1 (4.8-10.8) X10*3/uL Hgb 13.1 10.8 L (12.0-16.0) g/dl Hct 40.2 34.2 L (37.0-47.0) % Plt Count 161 131 L (160-400) X10*3/uL BMP 05/08/24 05/08/24 05/09/24 15:12 20:24 06:23 Sodium 134 L 136 140 Potassium 5.4 H D 5.5 H 4.3 D Chloride 102 111 H 114 H Carbon Dioxide 26 16 L 21 L BUN 17 H 15 10 Creatinine 0.95 0.82 0.65 Calcium 12.2 H 10.7 H D 10.6 H Liver Function 05/08/24 Range/Units 15:12 Total Bilirubin 0.4 (0.0-1.0) mg/dL Direct Bilirubin 0.2 (0.0-0.5) mg/dL AST 8 (5-31) U/L ALT 5 (0-31) U/L Alkaline Phosphatase 87 (39-117) U/L Albumin 4.0 (3.5-5.0) g/dL Urine 05/08/24 Range/Units 19:10 Urine Color Yellow Urine Appearance Clear Urine pH 5.5 (5.0-9.0) Ur Specific [place] 1.025 (1.005-1.025) Urine Protein Negative (Neg-Trace) mg/dL Urine Glucose (UA) >=1000 H (Negative) mg/dL Head CT revealed large right frontal mass probably a meningioma not different from previous imaging. Assessment and Plan (1) Near syncope: Status: Acute 74 years old woman with underlying history of a large right frontal meningioma has fallen few times and might have lost consciousness as she did not remember what had happened. On examination has mild right-sided weakness. My recommendation is to obtain a noncontrast MRI of brain and an EEG. Procedures Date of Service Date of Service: 05/09/24
[2024-05-09] MEDS: FLUoxetine HCl 20 MG CAPSULE PO (08:28)
[2024-05-09] MEDS: Sucralfate 1 GM TABLET PO ×2 (08:29→22:34)
[2024-05-09] MEDS: Loratadine 10 MG TABLET PO (08:29)
[2024-05-09] MEDS: Atorvastatin Calcium 40 MG TABLET PO (08:29)
[2024-05-09] MEDS: Ezetimibe 10 MG TABLET PO (08:29)
[2024-05-09] MEDS: SITagliptin Phosphate 100 MG TABLET PO (08:29)
[2024-05-09] MEDS: lisinopriL 5 MG TABLET PO (08:30)
--- NOTE | 2024-05-09 08:36 | PC.NURSE ---
patient provided with breakfast tray at this time, medicated with morning medications at this time, told this RN that she only takes her lyrica at night, does not want to take it now.
--- NOTE | 2024-05-09 09:59 | PC.NURSE ---
patient states she is too weak to get back into bed, this RN educated patient that she has been adjusting herself in bed on her own allmorning, educated patient that if she is no longer able to get in and out of bed than she needs to use the bed cohn instead of the commode, patient assisted back into bed, noted to have adjusted herself on the stretcher. phlebotomy at bedside to draw lactic. third attempt to get bloodwork from patient.
[2024-05-09 10:29] LABS: Lactic Acid 2.2 mmol/L (0.5-2.0)
[2024-05-09 12:01] LABS: Reflex Lactate? Lactic Acid Added
--- NOTE | 2024-05-09 12:02 | P.CONNP_ITS ---
History of Present Illness Reason for Consult Consult date: 05/09/24 Chief Complaint Chief complaint: near syncope History of Present Illness Narrative: 74-year-old female with history of DMII, GERD, mood disorder, HLD, chronic low back pain, and polyneuropathy to be observed for near syncope. pt states at bedside today that she has had trouble with dizziness for about 1 year now. Worsened over the last few days with more falls than normal x4. she states she falls back and to the right each time. pt states she had not been drinking much fluid and had reduced urination with urgency before coming into the hospital Head CT negative for acute intracranial abnormality, shows stable right frontal parasagittal hypodense calcified meningioma, plan for non-contrast MRI and EEG per neurology. In ED yesterday pt had elevated potassium of 5.4, elevated glucose of 367, calcium was 12.2 of note, calcium is chronically elevated, 04/20 was 11.8, has been in 10 to low 11 range for some time now. parathyroid hormone is elevated at 309, vitamin D low at 15 with IV hydration NS 100mL/hr, pt's potassium has normalized and her calcium has improved to 10.6 her renal function is normal. pt reports she is urinating more frequently than she was since being in the hospital and receiving fluids Review of Systems Constitutional: Denies anorexia, Reports fatigue, Denies fever(s) and Reports weakness Eyes: Denies blurry vision Reports Normal hearing present and Reports dizziness Cardiovascular: Denies no additional cardiovascular complaints, Denies chest pain, Reports lightheadedness (when standing) and Denies dyspnea Respiratory: Reports no additional respiratory complaints and Denies dyspnea Gastrointestinal: Denies abdominal pain and Denies diarrhea Genitourinary: Denies hematuria Musculoskeletal: Denies tingling Skin/Breast: Denies rash Reports Normal hearing present, Reports dizziness, Denies focal weakness, Denies tingling, Denies tremor(s) and Reports weakness Psychiatric: Reports anxiety Comments: crying at bedside; reports she is worried about her chronic dizziness. Endocrine: Reports fatigue PMFSH Past Medical History Medical History Polyneuropathy Hyperlipidemia Arthritis Anxiety GERD (gastroesophageal reflux disease) Type 2 diabetes mellitus Surgical History Surgical History Hx of hand surgery Social History Social History Patient Tobacco Use Status: Never used Tobacco Smoked in Last 30 Days: No Use of substances other than those prescribed or required for medical reasons: No Advance Directives: No Advance Directives Information Provided: No Do you have a plan to hurt others: No Plan Nutrition Risks: No Nutritional Risk service: No Meds Allergies Allergy/AdvReac Type Severity Reaction Status Date / Time IV contrast Allergy Intermediate Rash Uncoded 05/08/24 14:56 IBUProfen Allergy Unknown Rash Uncoded 05/08/24 14:56 Pencillin Allergy Unknown Rash Uncoded 05/08/24 14:56 Active Medications: Current Medications Acetaminophen (Acetaminophen 325 Mg Tablet) 650 mg PO Q6H PRN PRN Reason: Pain, Mild (Pain Scale 1-3), fever or headache Last Admin: 05/09/24 01:41 Dose: 650 mg Atorvastatin Calcium (Atorvastatin Calcium 40 Mg Tablet) 40 mg PO DAILY [facility] Last Admin: 05/09/24 08:29 Dose: 40 mg Calcium Carbonate (Calcium Carbonate 750 Mg Tab.Chew) 750 mg PO Q4H PRN PRN Reason: Heartburn Colchicine (Colchicine 0.6 Mg Tablet) 0.6 mg PO BID PRN PRN Reason: pain/gout Cyanocobalamin (Cyanocobalamin (Vitamin B-12) 1,000 Mcg Tablet) 1,000 mcg PO BEDTIME [facility] Ezetimibe (Ezetimibe 10 Mg Tablet) 10 mg PO DAILY [facility] Last Admin: 05/09/24 08:29 Dose: 10 mg Enoxaparin Sodium (Enoxaparin Sodium 40 Mg/0.4 Ml Syringe) 40 mg SUBCUT Q24H [facility] Last Admin: 05/08/24 19:26 Dose: 40 mg Fluoxetine HCl (Fluoxetine Hcl 20 Mg Capsule) 20 mg PO DAILY [facility] Last Admin: 05/09/24 08:28 Dose: 20 mg Fluticasone Propionate (Fluticasone Propionate Nasal 16 Gm [place]) 1 spray NOSTRIL-B DAILY PRN PRN Reason: Allergy Symptoms Glucose (Glucose Gel 15 Gm Gel..Gram.) 15 gm PO Q15M PRN; Protocol PRN Reason: per Hypoglycemia Standing Ord. Dextrose (D10) 250 mls @ 750 mls/hr IV Q15M PRN; Protocol PRN Reason: per Hypoglycemia Standing Ord. Sodium Chloride (Ns) 1,000 mls @ 100 mls/hr IVCONT .Q10H [facility] Last Admin: 05/09/24 06:01 Dose: 100 mls/hr Insulin Human Lispro (Insulin Lispro 100 Unit/Ml 3 Ml Vial) 0 unit SUBCUT QIDACHS [facility]; Protocol Last Admin: 05/09/24 12:01 Dose: Not Given Lisinopril (Lisinopril 5 Mg Tablet) 5 mg PO DAILY [facility]; Protocol Last Admin: 05/09/24 08:30 Dose: 5 mg Loratadine (Loratadine 10 Mg Tablet) 10 mg PO DAILY [facility] Last Admin: 05/09/24 08:29 Dose: 10 mg Magnesium Hydroxide (Milk Of Magnesia 30 Ml Oral.Susp) 30 ml PO DAILY PRN PRN Reason: Constipation Meclizine HCl (Meclizine Hcl 25 Mg Tablet) 25 mg PO TID PRN PRN Reason: dizziness Melatonin (Melatonin 3 Mg Tablet) 6 mg PO BEDTIME PRN PRN Reason: Insomnia Omeprazole (Omeprazole 20 Mg Capsule.Dr) 20 mg PO DAILY@0630 [facility] Pregabalin (Pregabalin 75 Mg Capsule) 75 mg PO BEDTIME [facility] Last Admin: 05/09/24 08:32 Dose: Not Given Sitagliptin Phosphate (Sitagliptin Phosphate 100 Mg Tablet) 100 mg PO DAILY [facility] Last Admin: 05/09/24 08:29 Dose: 100 mg Sodium Chloride (0.9 % Sodium Chloride Flush 3 Ml Syringe) 3 ml IVFLUSH QSHIFT [facility] Last Admin: 05/09/24 08:10 Dose: Not Given Sucralfate (Sucralfate 1 Gm Tablet) 1 gm PO BID [facility] Last Admin: 05/09/24 08:29 Dose: 1 gm Home Medications ?Medication ?Instructions ?Recorded ?Confirmed ?Last Taken ?Type cetirizine 10 mg tablet 10 mg PO DAILY 05/08/24 05/08/24 05/08/24 History cyanocobalamin (vitamin B-12) 1,000 mcg PO BEDTIME 05/08/24 05/08/24 05/07/24 History 1,000 mcg tablet ezetimibe 10 mg tablet 10 mg PO DAILY 05/08/24 05/08/24 05/08/24 History fluoxetine 20 mg tablet 20 mg PO DAILY 10/08/3105/08/24 05/08/24 History fluticasone propionate 50 1 spray intranasal DAILY PRN 05/08/24 05/08/24 Unknown History mcg/actuation nasal Allergy Symptoms spray,suspension insulin aspart U-100 100 unit/mL 10 unit subcut BID 05/08/24 05/08/24 05/08/24 History (3 mL) subcutaneous pen (Novolog FlexPen U-100 Insulin aspart) insulin glargine 100 unit/mL (3 20 unit subcut BEDTIME 05/08/24 05/08/24 05/08/24 History mL) subcutaneous pen (Lantus Solostar U-100 Insulin) lisinopril 5 mg tablet 5 mg PO DAILY 05/08/24 05/08/24 05/08/24 History meclizine 25 mg tablet 25 mg PO TID PRN dizziness 05/08/24 05/08/24 Unknown History metformin 1,000 mg tablet 1,000 mg PO BID 05/08/24 05/08/24 05/08/24 History pantoprazole 40 mg tablet,delayed 40 mg PO DAILY@0630 05/08/24 05/08/24 05/08/24 History release (Protonix) rosuvastatin 10 mg tablet 10 mg PO DAILY 05/08/24 05/08/24 05/08/24 History sitagliptin phosphate 100 mg 100 mg PO DAILY 05/08/24 05/08/24 05/08/24 History tablet (Januvia) Physical Exam Vital Signs: Last Vital Signs Temp 97.7 F 05/09/24 05:30 Pulse 64 05/09/24 10:18 Resp 17 05/09/24 05:30 BP 139/52 L 05/09/24 10:18 Pulse Ox 99 05/09/24 05:30 O2 Del Method Room Air 05/09/24 05:30 BMI result Body Mass Index 25.7 Const General: comfortable and no acute distress Orientation/consciousness: oriented to person, oriented to place and oriented to time Neck Neck: Yes no JVD Resp Effort & Inspection: able to speak in complete sentences Auscultation: clear to auscultation bilaterally Cardio Jugular venous distension: no JVD Rate: regular rate Rhythm: regular rhythm Heart sounds: S1 normal heart sound present and S2 normal heart sound present GI Palpation (GI): Soft to palpation Rectal Exam - Female: No tenderness General: Yes no CVA tenderness Back/Spine/Pelvis Back: no CVA tenderness Skin Rashes: no rashes Neuro General: oriented to person, oriented to place and oriented to time Cranial nerves: Yes Normal hearing present Extrem General: Yes normal to inspection, No edema and No pedal edema Results Lab Results 05/09/24 06:23 05/09/24 06:23 Lab results: Chemistry 05/08/24 05/08/24 05/09/24 15:12 20:24 06:23 Sodium 134 L 136 140 Potassium 5.4 H D 5.5 H 4.3 D Carbon Dioxide 26 16 L 21 L BUN 17 H 15 10 Creatinine 0.95 0.82 0.65 Calcium 12.2 H 10.7 H D 10.6 H Phosphorus 2.8 Hematology 05/08/24 05/09/24 15:12 06:23 WBC 11.0 H 8.1 Hgb 13.1 10.8 L Plt Count 161 131 L Urinalysis 05/08/24 19:10 Urine Color Yellow Urine Appearance Clear Urine pH 5.5 Ur Specific [place] 1.025 Urine Protein Negative Urine Glucose (UA) >=1000 H Urine Ketones Negative Urine Blood Negative Urine Nitrite Negative Ur Leukocyte Esterase Negative Urine RBC 0-2 Urine WBC 0-5 Ur Squamous Epith Cells 0-2 Hyaline Casts 0-2 Assessment and Plan (1) Type 2 diabetes mellitus: Qualifiers: Diabetes mellitus complication status: with hyperglycemia Diabetes mellitus terminal operations manager insulin use: without terminal operations manager use Qualified Code(s): E11.65 - Type 2 diabetes mellitus with hyperglycemia Status: Acute (2) Hypercalcemia: Status: Acute (3) Hyperkalemia: Status: Acute (4) Orthostatic hypotension: Status: Acute Plan Hypercalcemia longstanding secondary to hyperparathyroidism (acute increase likely secondary to dehydration) may consider cinacalet 30mg PO daily for management in addition to continuing IV fluids hyperkalemia (likely secondary to metabolic acidosis yesterday) has resolved with hydration elevated sugars have improved with hydration as well. Recommend continue to monitor/optimize blood sugar.. recommend checking orthostatic blood pressures as patient's hdyration status improves- decline of 20mmhg or greater in systolic BP or 10mmHg or more in diastolic pressure after 3 minutes of standing recommend continuing with neurology workup for dizziness and recurrent falls given abnormal brain imaging. Procedures Date of Service Date of Service: 05/09/24
[2024-05-09 12:04] LABS: Glucose, Whole Blood 140 mg/dL (60-115)
--- NOTE | 2024-05-09 12:49 | PC.NURSE ---
patient requesting lunch, lunch trays not provided yet, patient provided with gingerale and saltines per request.
--- NOTE | 2024-05-09 12:55 | MHC.CM.PN ---
Addendum entered by Ngoc Montenegro 05/09/24 13:23: Received verification from [facility] that patient is active with their agency. Return referral made in [facility]. Original Note: Met with patient in regards to discharge planning. Patient lives with her daughter, Yazmin and her 17 year old grandson, ambulates with a cane/walker/rollator, and is active with [facility]. Patient is unsure of [facility] agency at this time. PCP verified. Obs notice explained and signed. Patient will require chair van for transport home when medically stable. Patient requesting back brace due to back pain. Patient was recently at [facility] and put on steroids. Dr Kee notified. Continue to monitor for d/c needs.
--- NOTE | 2024-05-09 13:08 | PC.NURSE ---
patient placed self on bedside commode and ambulated back to bed. provided with lunch tray
--- NOTE | 2024-05-09 13:43 | PC.NURSE ---
MRI screening completed with patient, patient provided with warm blanket and repositioned in bed for comfort
--- NOTE | 2024-05-09 14:06 | PC.NURSE ---
per EEG department, patient cannot recieve EEG until tomorrow, aware
[2024-05-09 14:20] LABS: ~Lactic Acid-LAB USE ONLY 2.6 mmol/L (0.5-2.0)
--- NOTE | 2024-05-09 14:51 | HO.PM.IMPN ---
Subjective Subjective Date of Service: 05/09/24 Interval History: presyncope Review of Systems Patient denies any chest pain or shortness breast or abdominal pain. Dizziness seems to be improving Physical Exam Vital Signs: Vital Signs: Last Vital Signs Temp 97.7 F 05/09/24 05:30 Pulse 64 05/09/24 10:18 Resp 17 05/09/24 05:30 BP 139/52 L 05/09/24 10:18 Pulse Ox 99 05/09/24 05:30 O2 Del Method Room Air 05/09/24 05:30 BMI result Body Mass Index 25.7 Appearance: Alert.? Oriented X3.? cvs: rrr, [id number]. res: clear to auscultation ,no rhonchii or wheezing abd: no rebound or guarding ,nt, bs present. ext pulses present , no cyanosis . neuro: axo3 , nonfocal. Objective Data Active Medications Acetaminophen (Acetaminophen 325 Mg Tablet) 650 mg PO Q6H PRN PRN Reason: Pain, Mild (Pain Scale 1-3), fever or headache Last Admin: 05/09/24 01:41 Dose: 650 mg Documented By: PHU Atorvastatin Calcium (Atorvastatin Calcium 40 Mg Tablet) 40 mg PO DAILY [facility] Last Admin: 05/09/24 08:29 Dose: 40 mg Documented By: TOSIN Calcium Carbonate (Calcium Carbonate 750 Mg Tab.Chew) 750 mg PO Q4H PRN PRN Reason: Heartburn Colchicine (Colchicine 0.6 Mg Tablet) 0.6 mg PO BID PRN PRN Reason: pain/gout Cyanocobalamin (Cyanocobalamin (Vitamin B-12) 1,000 Mcg Tablet) 1,000 mcg PO BEDTIME [facility] Ezetimibe (Ezetimibe 10 Mg Tablet) 10 mg PO DAILY [facility] Last Admin: 05/09/24 08:29 Dose: 10 mg Documented By: TOSIN Enoxaparin Sodium (Enoxaparin Sodium 40 Mg/0.4 Ml Syringe) 40 mg SUBCUT Q24H [facility] Last Admin: 05/08/24 19:26 Dose: 40 mg Documented By: PHU Fluoxetine HCl (Fluoxetine Hcl 20 Mg Capsule) 20 mg PO DAILY [facility] Last Admin: 05/09/24 08:28 Dose: 20 mg Documented By: TOSIN Fluticasone Propionate (Fluticasone Propionate Nasal 16 Gm [place]) 1 spray NOSTRIL-B DAILY PRN PRN Reason: Allergy Symptoms Glucose (Glucose Gel 15 Gm Gel..Gram.) 15 gm PO Q15M PRN; Protocol PRN Reason: per Hypoglycemia Standing Ord. Dextrose (D10) 250 mls @ 750 mls/hr IV Q15M PRN; Protocol PRN Reason: per Hypoglycemia Standing Ord. Sodium Chloride (Ns) 1,000 mls @ 100 mls/hr IVCONT .Q10H [facility] Last Admin: 05/09/24 06:01 Dose: 100 mls/hr Documented By: PHU Insulin Human Lispro (Insulin Lispro 100 Unit/Ml 3 Ml Vial) 0 unit SUBCUT QIDACHS [facility]; Protocol Last Admin: 05/09/24 12:01 Dose: Not Given Documented By: TOSIN Non-Admin Reason: No Insulin Coverage Comments: POC 140 no insulin coverage needed Lisinopril (Lisinopril 5 Mg Tablet) 5 mg PO DAILY [facility]; Protocol Last Admin: 05/09/24 08:30 Dose: 5 mg Documented By: TOSIN Loratadine (Loratadine 10 Mg Tablet) 10 mg PO DAILY [facility] Last Admin: 05/09/24 08:29 Dose: 10 mg Documented By: TOSIN Magnesium Hydroxide (Milk Of Magnesia 30 Ml Oral.Susp) 30 ml PO DAILY PRN PRN Reason: Constipation Meclizine HCl (Meclizine Hcl 25 Mg Tablet) 25 mg PO TID PRN PRN Reason: dizziness Melatonin (Melatonin 3 Mg Tablet) 6 mg PO BEDTIME PRN PRN Reason: Insomnia Omeprazole (Omeprazole 20 Mg Capsule.Dr) 20 mg PO DAILY@0630 [facility] Pregabalin (Pregabalin 75 Mg Capsule) 75 mg PO BEDTIME [facility] Last Admin: 05/09/24 08:32 Dose: Not Given Documented By: TOSIN Non-Admin Reason: Patient Refused Sitagliptin Phosphate (Sitagliptin Phosphate 100 Mg Tablet) 100 mg PO DAILY [facility] Last Admin: 05/09/24 08:29 Dose: 100 mg Documented By: TOSIN Sodium Chloride (0.9 % Sodium Chloride Flush 3 Ml Syringe) 3 ml IVFLUSH QSHIFT [facility] Last Admin: 05/09/24 08:10 Dose: Not Given Documented By: TOSIN Non-Admin Reason: IV Running Sucralfate (Sucralfate 1 Gm Tablet) 1 gm PO BID SARI Last Admin: 05/09/24 08:29 Dose: 1 gm Documented By: TOSIN Labs 05/09/24 06:23 05/09/24 06:23 Labs: Laboratory Results - last 24 hr 05/08/24 05/08/24 05/08/24 15:11 15:12 17:45 MCV 84.5 MCH 27.5 MCHC 32.6 RDW 14.8 Plt Count 161 MPV 13.6 H Immature Gran % (Auto) 0.6 H Neut % (Auto) 70.2 Lymph % (Auto) 21.7 [place] % (Auto) 7.2 Eos % (Auto) 0.1 Baso % (Auto) 0.2 Lymph # (Auto) 2.4 [place] # (Auto) 0.8 Eos # (Auto) 0.0 Baso # (Auto) 0.0 Abs Immat Gran (auto) 0.07 H Absolute Neuts (auto) 7.7 Absolute Nucleated RBC 0.000 Nucleated RBC % (auto) 0.0 Smear Tech's Comments VERIFIED Anion Gap 11 L Estim Creat Clear Calc 52.5 Estimated GFR 58 POC Glucose Random Glucose 367 H* Estimat Average Glucose Hemoglobin A1c % Lactic Acid 2.7 H* Lactic Acid F/U @ 2Hr 3.7 H* Lactic Acid F/U @ 4Hr Calcium 12.2 H Phosphorus Total Bilirubin 0.4 Direct Bilirubin 0.2 AST 8 ALT 5 Alkaline Phosphatase 87 Troponin I High Sens < 2.7 B-Natriuretic Peptide < 10 Total Protein 6.7 Albumin 4.0 Lipase 26 25-OH Vitamin D Total PTH Intact Urine Color Urine Appearance Urine pH Ur Specific [place] Urine Protein Urine Glucose (UA) Urine Ketones Urine Blood Urine Nitrite Ur Leukocyte Esterase Urine RBC Urine WBC Ur Squamous Epith Cells Urine Bacteria Hyaline Casts Influenza Type A (PCR) NEGATIVE Influenza Type B (PCR) NEGATIVE RSV RNA Qual (PCR) NEGATIVE SARS-CoV-2 RNA (RT-PCR) NEGATIVE 05/08/24 05/08/24 05/08/24 18:53 19:10 20:24 MCV MCH MCHC RDW Plt Count MPV Immature Gran % (Auto) Neut % (Auto) Lymph % (Auto) [place] % (Auto) Eos % (Auto) Baso % (Auto) Lymph # (Auto) [place] # (Auto) Eos # (Auto) Baso # (Auto) Abs Immat Gran (auto) Absolute Neuts (auto) Absolute Nucleated RBC Nucleated RBC % (auto) Smear Tech's Comments Anion Gap 15 Estim Creat Clear Calc 60.9 Estimated GFR > 60 POC Glucose 211 H Random Glucose 315 H Estimat Average Glucose Hemoglobin A1c % Lactic Acid Lactic Acid F/U @ 2Hr Lactic Acid F/U @ 4Hr 4.2 H* Calcium 10.7 H D Phosphorus Total Bilirubin Direct Bilirubin AST ALT Alkaline Phosphatase Troponin I High Sens B-Natriuretic Peptide Total Protein Albumin Lipase 25-OH Vitamin D Total PTH Intact Urine Color Yellow Urine Appearance Clear Urine pH 5.5 Ur Specific [place] 1.025 Urine Protein Negative Urine Glucose (UA) >=1000 H Urine Ketones Negative Urine Blood Negative Urine Nitrite Negative Ur Leukocyte Esterase Negative Urine RBC 0-2 Urine WBC 0-5 Ur Squamous Epith Cells 0-2 Urine Bacteria 1+ Hyaline Casts 0-2 Influenza Type A (PCR) Influenza Type B (PCR) RSV RNA Qual (PCR) SARS-CoV-2 RNA (RT-PCR) 05/08/24 05/09/24 05/09/24 21:17 06:23 06:39 MCV 85.7 MCH 27.1 MCHC 31.6 RDW 14.7 Plt Count 131 L MPV 12.5 H Immature Gran % (Auto) 0.5 H Neut % (Auto) 67.1 Lymph % (Auto) 24.6 [place] % (Auto) 7.6 Eos % (Auto) 0.1 Baso % (Auto) 0.1 Lymph # (Auto) 2.0 [place] # (Auto) 0.6 Eos # (Auto) 0.0 Baso # (Auto) 0.0 Abs Immat Gran (auto) 0.04 H Absolute Neuts (auto) 5.4 Absolute Nucleated RBC 0.000 Nucleated RBC % (auto) 0.0 Smear Tech's Comments Anion Gap 9 L Estim Creat Clear Calc 76.8 Estimated GFR > 60 POC Glucose 268 H 102 Random Glucose 118 H Estimat Average Glucose 189 Hemoglobin A1c % 8.2 H Lactic Acid Lactic Acid F/U @ 2Hr Lactic Acid F/U @ 4Hr Calcium 10.6 H Phosphorus 2.8 Total Bilirubin Direct Bilirubin AST ALT Alkaline Phosphatase Troponin I High Sens B-Natriuretic Peptide Total Protein Albumin Lipase 25-OH Vitamin D Total 15.4 L PTH Intact 309.8 H Urine Color Urine Appearance Urine pH Ur Specific [place] Urine Protein Urine Glucose (UA) Urine Ketones Urine Blood Urine Nitrite Ur Leukocyte Esterase Urine RBC Urine WBC Ur Squamous Epith Cells Urine Bacteria Hyaline Casts Influenza Type A (PCR) Influenza Type B (PCR) RSV RNA Qual (PCR) SARS-CoV-2 RNA (RT-PCR) 05/09/24 05/09/24 05/09/24 09:58 12:00 13:56 MCV MCH MCHC RDW Plt Count MPV Immature Gran % (Auto) Neut % (Auto) Lymph % (Auto) [place] % (Auto) Eos % (Auto) Baso % (Auto) Lymph # (Auto) [place] # (Auto) Eos # (Auto) Baso # (Auto) Abs Immat Gran (auto) Absolute Neuts (auto) Absolute Nucleated RBC Nucleated RBC % (auto) Smear Tech's Comments Anion Gap Estim Creat Clear Calc Estimated GFR POC Glucose 140 H Random Glucose Estimat Average Glucose Hemoglobin A1c % Lactic Acid 2.2 H* Lactic Acid F/U @ 2Hr 2.6 H* Lactic Acid F/U @ 4Hr Calcium Phosphorus Total Bilirubin Direct Bilirubin AST ALT Alkaline Phosphatase Troponin I High Sens B-Natriuretic Peptide Total Protein Albumin Lipase 25-OH Vitamin D Total PTH Intact Urine Color Urine Appearance Urine pH Ur Specific [place] Urine Protein Urine Glucose (UA) Urine Ketones Urine Blood Urine Nitrite Ur Leukocyte Esterase Urine RBC Urine WBC Ur Squamous Epith Cells Urine Bacteria Hyaline Casts Influenza Type A (PCR) Influenza Type B (PCR) RSV RNA Qual (PCR) SARS-CoV-2 RNA (RT-PCR) Assessment and Plan (1) Orthostatic hypotension: Status: Acute (2) Hyperkalemia: Status: Acute (3) Hypercalcemia: Status: Acute Plan 74-year-old female with history of insulin-dependent type 2 diabetes, GERD, mood disorder, hyperlipidemia, chronic low back pain, and polyneuropathy to be observed for near syncope possible Orthostatic near syncope -likely r/t dehydration from hyperglycemia Received IV fluid, does not seem to be orthostatic in the morning. Also symptoms are seems to be improving -Head CT negative for acute intracranial abnormality MRI and EEG added per neuro, echo May be initially had possible orthostatics symptoms secondary to dehydration secondary to hyperglycemia, await further workup. ACute hyperkalemia : Improved with correcting hyperglycemia. Acute lactic acidosis -due to hypoperfusion/hypovolemia/hyperglycemia/metformin Improved with hydration, no sepsis. Insulin dependent type 2 diabetes with steroid induced hyperglycemia-seems to be improving -Check hgb a1c Continue home Lantus, sliding scale coverage Acute on chronic hypercalcemia -likely multifactorial Has normal phosphorus levels, decreased vitamin-D, elevated PTH Seems fluctuating calcium level chronically Nephrology evaluation chronic low back pain with radiculopathy -s/p cortisone injection. outpt follow up with pain management -lyrica GERD -PPI, Carafate hyperlipidemia -statin DVT prophylaxis-lovenox full code Ongoing hospitalization need: Presyncope workup, monitoring for electrolytes, nephrology evaluation, monitor clinically for worsening dizziness or new symptoms. Quality Stroke Does the patient have a stroke diagnosis?: No VTE Prior VTE?: No VTE Risk Level:: Medical - moderate - high VTE Device Contraindication: N/A - Device Ordered VTE Drug Contraindication: N/A - Med Ordered
[2024-05-09 14:58] LABS: Cancel Lactic Acid Canceled
[2024-05-09 18:53] LABS: Glucose, Whole Blood 309 mg/dL (60-115)
[2024-05-09] MEDS: Insulin Lispro 100 UNIT/ML 3 ML VIAL SUBCUT (18:54)
[2024-05-09 20:01] LABS: Glucose, Whole Blood 270 mg/dL (60-115)
[2024-05-09] MEDS: Cyanocobalamin (Vitamin B-12) 1,000 MCG TABLET 1000 MCG PO (22:34)
[2024-05-09] MEDS: Pregabalin 75 MG CAPSULE PO (22:34)
[2024-05-09] MEDS: Enoxaparin Sodium 40 MG/0.4 ML SYRINGE SUBCUT (22:35)
[2024-05-09 22:43] LABS: Glucose, Whole Blood 177 mg/dL (60-115)
[2024-05-10] VITALS (12 sets, daily range): BP systolic 140–192; BP diastolic 60–98; PULSE 55–69; RESP 18–20; TEMP 36.1–37.3; O2SAT 97–100
--- NOTE | 2024-05-10 | EEG_ITS ---
INTERPRETATION: This is a 16-channel EEG with an EKG lead. The patient is reported awake during the tracing. Background EEG rhythm is at times medium amplitude, symmetric alpha posteriorly, lower amplitude fast anteriorly. Frequently, patient transition into drowsiness. During drowsiness, periods of sharply contoured theta range right hemispheric temporal area discharges were noted. Cardiac lead did not reveal any significant abnormality. Photic stimulation was unremarkable. Hyperventilation was not performed. IMPRESSION: Mildly abnormal EEG suggestive of right hemispheric paroxysmal disorder, which suggested [id number] partial seizure disorder. MD MELODY Barrios/ANTONIETA / [phone]
[2024-05-10] MEDS: Omeprazole 20 MG CAPSULE.DR PO (05:54)
--- NOTE | 2024-05-10 07:00 | CA_ITS ---
Transthoracic Echocardiogram Patient (Last, First, Middle): Pamella Hull, Gender: Female Date of : 1950 Age: 74 Procedure Date: 05/10/2024 Procedure Type: Transthoracic Echocardiogram Location: [facility] [place] Height: 165.1 cm Weight: 70.31 kg BSA: 1.78 m2 Heart Rate: bpm BP: 158 / 72 mmHg Product Handler: TO Referring MD: Edgar Kee MD Symptoms: pre syncope Study Quality: Fair/Contrast Conclusions: - Normal left ventricular cavity size. There is normal left ventricular wall thickness. The left ventricular systolic function is hyperdynamic. The visually estimated ejection fraction is >70%. - Normal right ventricular cavity size and systolic function. Findings Procedure Information Contrast agent, definity, is being given per protocol without apparent complications. The study quality is limited by the patients inability to tolerate the test. Left Ventricle Normal left ventricular cavity size. There is normal left ventricular wall thickness. The left ventricular systolic function is hyperdynamic. The visually estimated ejection fraction is >70%. There is no evidence of regional wall motion abnormalities. Abnormal diastolic function is noted. Spectral Doppler is indicative of an impaired relaxation filling pattern. E/E prime ratio is between 8 and 15 consistent with indeterminate filling pressures. Right Ventricle Normal right ventricular cavity size and systolic function. Atria The left atrium is normal in size. The right atrium is normal in size. Aortic Valve Normal aortic valve structure and function. There is no aortic valve stenosis. There is no aortic valve regurgitation. Mitral Valve The mitral valve appears normal. There is no mitral valve regurgitation. There is no mitral valve stenosis. Pulmonic Valve The pulmonic valve is likely normal. Tricuspid Valve Normal tricuspid valve structure. There is trace tricuspid valve regurgitation. Normal right atrial pressure. There is no evidence of pulmonary hypertension. Great Vessels All visible segments of the aorta are normal in size. Venous The inferior vena cava is normal in size and collapses greater than 50% with inspiration. Pericardium/Pleural There is no evidence of pericardial effusion. Prior Study Comparison No prior study available for comparison. Measurements 2D Linear Measurements IVSd: 1.02 0.6-0.9/0.6-1.0 cm LVIDd: 3.93 3.9-5.3/4.2-5.9 cm LVIDd Index: 2.21 2.4-3.2/2.2-3.1 cm/m2 LVIDs: 2.53 2.0-3.6 cm LVPWd: 0.80 0.7-1.1 cm LA Diam: 3.20 2.7-3.8/3.0-4.0 cm LAIDs Index: 1.80 1.5-2.3 cm/m2 LV Mass: 134.90 67-162/88-224 g LV Mass Index: 75.78 43-95/49-115 g/m2 LVOT Diam: 2.00 3.0+(-)1.3 cm 2D Systolic Function EF 4C: 71.40 >55% EF 2C: 71.40 >55% EF BiP: 72.30 >55% Mitral Valve MV Pk E: 0.72 MV PK A: 0.60 MV Decel Time: 191.00 E/A: 1.20 E'Lateral: 7.51 E'Medial: 5.11 E/E' Med: 14.20 E/E' Lat: 9.60 PHT: 56.00 MVA PHT: 3.93 Decel [place]: 3.79 Aortic Valve AoV Pk Miguel A: 1.33 AoV Mn Miguel A: 0.88 AoV VTI: 0.32 AoV Pk Grad: 7.00 Aov Mn Grad: 3.00 YAYO Cont.VTI: 2.43 LVOT LVOT Pk Miguel A: 0.99 LVOT Mn Miguel A: 0.69 LVOT VTI: 0.25 LVOT Pk Grad: 4.00 LVOT Mn Grad: 2.00 LVOT Diam: 2.00 LVOT Area: 3.14 Diastolic Function MV Pk E: 0.72 MV Pk A: 0.60 E/A: 1.20 E'Medial: 5.11 E/E' Med: 14.20 E' Laterial: 7.51 E/E' Lat: 9.60 Right Ventricle TAPSE (mm): 19.40 TVS' Miguel A: 14.30 Tricuspid Valve TR Pk Miguel A: 1.93 TR Pk Grad: 15.00 RA Press: 3.00 RVSP: 18.00 Great Vessels Aorta Sinus of Valsalva: 2.90 2.0-3.[address] [place]: 2.21 1.7-3.4 cm Ao Asc: 2.60 2.1-3.4 cm Updated in Other Vendor System with Status of Final Roshan Ramsey MD electronically signed on 05/11/2024 11:01:25 AM with status of Final
[2024-05-10 07:50] LABS: Glucose, Whole Blood 199 mg/dL (60-115)
[2024-05-10] MEDS: Ezetimibe 10 MG TABLET PO (07:50)
[2024-05-10] MEDS: SITagliptin Phosphate 100 MG TABLET PO (07:50)
[2024-05-10] MEDS: lisinopriL 5 MG TABLET PO (07:50)
[2024-05-10] MEDS: Sucralfate 1 GM TABLET PO ×2 (07:51→21:42)
[2024-05-10] MEDS: Loratadine 10 MG TABLET PO (07:51)
[2024-05-10] MEDS: FLUoxetine HCl 20 MG CAPSULE PO (07:51)
[2024-05-10] MEDS: Atorvastatin Calcium 40 MG TABLET PO (07:51)
[2024-05-10] MEDS: Insulin Lispro 100 UNIT/ML 3 ML VIAL SUBCUT ×3 (07:55→21:42)
--- NOTE | 2024-05-10 10:54 | P.PNNP_ITS ---
Subjective Subjective Date of Service: 05/10/24 Interval history: 74-year-old female with history of DMII, GERD, mood disorder, HLD, chronic low back pain, and polyneuropathy to be observed for near syncope. pt has reported ongoing dizziness for 1 year now, she states she falls back and to the right each time. Head CT shows meningioma pt states she had not been drinking much fluid and had reduced urination with urgency before coming into the hospital Today pt reports her dizziness has improved since yesterday and she is feeling much better, though still senses some dizziness she states she is urinating regularly without difficulty her calcium level is now at her typical baseline after hydration parathyroid hormone is elevated at 309, vitamin D low at 15 continues with IV hydration NS 100mL/hr her renal function is normal. Physical Exam 2 Vital Signs: Vital Signs: Last Vital Signs Temp 97.0 F 05/10/24 07:18 Pulse 55 05/10/24 07:18 Resp 18 05/10/24 07:18 BP 158/72 H 05/10/24 07:18 Pulse Ox 98 05/10/24 07:18 O2 Del Method Room Air 05/10/24 07:18 BMI result Body Mass Index 25.9 Const: General: comfortable and no acute distress O rientation/consciousness: oriented to person, oriented to place and oriented to time Neck: Neck: Yes no JVD Resp: Effort & Inspection: able to speak in complete sentences A uscultation: clear to auscultation bilaterally Cardio: Jugular venous distension: no JVD Rate: regular rate Rhythm: r egular rhythm Heart sounds: S1 normal heart sound present and S2 normal heart sound present GI: Palpation (GI): Soft to palpation Rectal Exam - Female: No tenderness : General: Yes no CVA tenderness Back/Spine/Pelvis: Back: no CVA tenderness Skin: Rashes: no rashes Neuro: General: oriented to person, oriented to place and oriented to time Cranial nerves: Yes Normal hearing present Extrem: General: Yes normal to inspection, No edema and No pedal edema Objective Data Labs 05/09/24 06:23 05/09/24 06:23 Labs: Laboratory Results - last 24 hr 05/09/24 05/09/24 05/09/24 12:00 13:56 18:50 POC Glucose 140 H 309 H Lactic Acid F/U @ 2Hr 2.6 H* 05/09/24 05/09/24 05/10/24 19:50 22:40 07:19 POC Glucose 270 H 177 H 199 H Lactic Acid F/U @ 2Hr Microbiology Microbiology Results: Microbiology 05/08/24 16:29 Blood - Venous Blood Culture - Preliminary No growth after 24 hours. 05/08/24 15:10 Blood - Venous Blood Culture - Preliminary No growth after 24 hours. Procedures Date of Service Date of Service: 05/10/24 Assessment & Plan Assessment and plan (1) Hypercalcemia: Status: Acute (2) Hyperkalemia: Status: Acute (3) Orthostatic hypotension: Status: Acute Plan Hypercalcemia longstanding secondary to hyperparathyroidism (acute increase likely secondary to dehydration) may consider cinacalet 30mg PO daily for management in addition to continuing IV fluids. Stop calcium carbonate-based antacids. hyperkalemia (likely secondary to metabolic acidosis yesterday) has resolved with hydration elevated sugars have improved with hydration as well. Recommend continue to monitor/optimize blood sugar. recommend checking orthostatic blood pressures as patient's hdyration status improves- decline of 20mmhg or greater in systolic BP or 10mmHg or more in diastolic pressure after 3 minutes of standing recommend continuing with neurology workup for dizziness and recurrent falls given abnormal brain imaging. Time Spent With Patient Time: Total time managing care of this patient today ____ minutes. Progress Note: Quality Stroke Does the patient have a stroke diagnosis?: No
[2024-05-10 11:16] LABS: Glucose, Whole Blood 363 mg/dL (60-115)
--- NOTE | 2024-05-10 14:20 | P.PNIM_ITS ---
Subjective Subjective Date of Service: 05/10/24 Interval History: presyncope possible meningioma Review of Systems seems improving still somewhat lightheadness with walking no fever Physical Exam 2 Vital Signs: Vital Signs: Last Vital Signs Temp 96.9 F 05/10/24 11:01 Pulse 60 05/10/24 11:01 Resp 18 05/10/24 11:01 BP 148/72 H 05/10/24 11:01 Pulse Ox 99 05/10/24 11:01 O2 Del Method Room Air 05/10/24 11:01 BMI result Body Mass Index 25.9 Appearance: Alert.? Oriented X3.? cvs: rrr, [id number]. res: clear to auscultation ,no rhonchii or wheezing abd: no rebound or guarding ,nt, bs present. ext pulses present , no cyanosis . neuro: axo3 , nonfocal. Objective Data Active Medications Acetaminophen (Acetaminophen 325 Mg Tablet) 650 mg PO Q6H PRN PRN Reason: Pain, Mild (Pain Scale 1-3), fever or headache Last Admin: 05/09/24 01:41 Dose: 650 mg Documented By: PHU Atorvastatin Calcium (Atorvastatin Calcium 40 Mg Tablet) 40 mg PO DAILY [facility] Last Admin: 05/10/24 07:51 Dose: 40 mg Documented By: VAISHALI Colchicine (Colchicine 0.6 Mg Tablet) 0.6 mg PO BID PRN PRN Reason: pain/gout Cyanocobalamin (Cyanocobalamin (Vitamin B-12) 1,000 Mcg Tablet) 1,000 mcg PO BEDTIME [facility] Last Admin: 05/09/24 22:34 Dose: 1,000 mcg Documented By: BHUPENDRA Ezetimibe (Ezetimibe 10 Mg Tablet) 10 mg PO DAILY [facility] Last Admin: 05/10/24 07:50 Dose: 10 mg Documented By: VAISHALI Enoxaparin Sodium (Enoxaparin Sodium 40 Mg/0.4 Ml Syringe) 40 mg SUBCUT Q24H [facility] Last Admin: 05/09/24 22:35 Dose: 40 mg Documented By: BHUPENDRA Fluoxetine HCl (Fluoxetine Hcl 20 Mg Capsule) 20 mg PO DAILY [facility] Last Admin: 05/10/24 07:51 Dose: 20 mg Documented By: VAISHALI Fluticasone Propionate (Fluticasone Propionate Nasal 16 Gm [place]) 1 spray NOSTRIL-B DAILY PRN PRN Reason: Allergy Symptoms Glucose (Glucose Gel 15 Gm Gel..Gram.) 15 gm PO Q15M PRN; Protocol PRN Reason: per Hypoglycemia Standing Ord. Dextrose (D10) 250 mls @ 750 mls/hr IV Q15M PRN; Protocol PRN Reason: per Hypoglycemia Standing Ord. Sodium Chloride (Ns) 1,000 mls @ 100 mls/hr IVCONT .Q10H [facility] Last Admin: 05/09/24 22:42 Dose: 100 mls/hr Documented By: BHUPENDRA Insulin Human Lispro (Insulin Lispro 100 Unit/Ml 3 Ml Vial) 0 unit SUBCUT QIDACHS [facility]; Protocol Last Admin: 05/10/24 11:59 Dose: 10 unit Documented By: VAISHALI Lisinopril (Lisinopril 5 Mg Tablet) 5 mg PO DAILY [facility]; Protocol Last Admin: 05/10/24 07:50 Dose: 5 mg Documented By: VAISHALI Loratadine (Loratadine 10 Mg Tablet) 10 mg PO DAILY [facility] Last Admin: 05/10/24 07:51 Dose: 10 mg Documented By: VAISHALI Magnesium Hydroxide (Milk Of Magnesia 30 Ml Oral.Susp) 30 ml PO DAILY PRN PRN Reason: Constipation Meclizine HCl (Meclizine Hcl 25 Mg Tablet) 25 mg PO TID PRN PRN Reason: dizziness Melatonin (Melatonin 3 Mg Tablet) 6 mg PO BEDTIME PRN PRN Reason: Insomnia Omeprazole (Omeprazole 20 Mg Capsule.Dr) 20 mg PO DAILY@0630 [facility] Last Admin: 05/10/24 05:54 Dose: 20 mg Documented By: BHUPENDRA Pregabalin (Pregabalin 75 Mg Capsule) 75 mg PO BEDTIME [facility] Last Admin: 05/09/24 22:34 Dose: 75 mg Documented By: BHUPENDRA Sitagliptin Phosphate (Sitagliptin Phosphate 100 Mg Tablet) 100 mg PO DAILY [facility] Last Admin: 05/10/24 07:50 Dose: 100 mg Documented By: VAISHALI Sodium Chloride (0.9 % Sodium Chloride Flush 3 Ml Syringe) 3 ml IVFLUSH QSHIFT [facility] Last Admin: 05/10/24 07:55 Dose: Not Given Documented By: VAISHALI Non-Admin Reason: IV Running Sucralfate (Sucralfate 1 Gm Tablet) 1 gm PO BID [facility] Last Admin: 05/10/24 07:51 Dose: 1 gm Documented By: VAIHSALI Labs 05/09/24 06:23 05/09/24 06:23 Labs: Laboratory Results - last 24 hr 05/09/24 05/09/24 05/09/24 13:56 18:50 19:50 POC Glucose 309 H 270 H Lactic Acid F/U @ 2Hr 2.6 H* 05/09/24 05/10/24 05/10/24 22:40 07:19 11:00 POC Glucose 177 H 199 H 363 H* Lactic Acid F/U @ 2Hr Microbiology Microbiology Results: Microbiology 05/08/24 16:29 Blood Culture - Preliminary Blood - Venous No growth after 24 hours. 05/08/24 15:10 Blood Culture - Preliminary Blood - Venous No growth after 24 hours. Assessment and Plan (1) Hypercalcemia: Status: Acute Assessment and Plan: 74-year-old female with history of insulin-dependent type 2 diabetes, GERD, mood disorder, hyperlipidemia, chronic low back pain, and polyneuropathy to be observed for near syncope possible Orthostatic near syncope -likely r/t dehydration from hyperglycemia -Head CT negative for acute intracranial abnormality. plan: seems improving with hydration check orthostasis MRI and EEG added per neuro, echo neurology followup. ACute hyperkalemia : Improved with correcting hyperglycemia. Acute lactic acidosis -due to hypoperfusion/hypovolemia/hyperglycemia/metformin Improved with hydration, no sepsis. Insulin dependent type 2 diabetes with steroid induced hyperglycemia fs flacutuating hgb a1c 8.2 improving ( from 12.4 in ) Continue home Lantus, sliding scale coverage Acute on chronic hypercalcemia -likely multifactorial Has normal phosphorus levels, decreased vitamin-D, elevated PTH Seems fluctuating calcium level chronically Nephrology evaluation- Hypercalcemia longstanding secondary to hyperparathyroidism (acute increase likely secondary to dehydration) calcium improving moniter bmp chronic low back pain with radiculopathy -s/p cortisone injection. outpt follow up with pain management -lyrica GERD -PPI, Carafate hyperlipidemia -statin DVT prophylaxis-lovenox full code Ongoing hospitalization need: Presyncope workup, monitoring for electrolytes, nephrology evaluation, monitor clinically for worsening dizziness or new symptoms. Quality Stroke Does the patient have a stroke diagnosis?: No VTE Prior VTE?: No VTE Risk Level:: Medical - moderate - high VTE Device Contraindication: N/A - Device Ordered VTE Drug Contraindication: N/A - Med Ordered
[2024-05-10 14:38] LABS: Anion Gap 9 (12-20); Blood Urea Nitrogen 9 mg/dL (9-16); Calcium 10.5 mg/dL (8.4-10.2); Carbon Dioxide 21 mmol/L (22-29); Chloride 113 mmol/L (96-108); Creatinine Clr Calc Pharmacy 68.6; Estimated Glomerular Filt Rate > 60; Glucose Random 177 mg/dL (60-115); Potassium 4.5 mmol/L (3.3-5.1); Sodium 138 mmol/L (135-145)
[2024-05-10 15:40] LABS: Glucose, Whole Blood 135 mg/dL (60-115)
[2024-05-10] MEDS: 0.9 % Sodium Chloride Flush 3 ML SYRINGE IVFLUSH ×3 (16:12→23:59)
[2024-05-10 20:37] LABS: Glucose, Whole Blood 333 mg/dL (60-115)
[2024-05-10] MEDS: Pregabalin 75 MG CAPSULE PO (21:42)
[2024-05-10] MEDS: Cyanocobalamin (Vitamin B-12) 1,000 MCG TABLET 1000 MCG PO (21:42)
[2024-05-11] VITALS (8 sets, daily range): BP systolic 135–177; BP diastolic 64–79; PULSE 54–64; RESP 20; TEMP 36.1–37.2; O2SAT 97–100
[2024-05-11] MEDS: Omeprazole 20 MG CAPSULE.DR PO (05:34)
[2024-05-11 07:24] LABS: Glucose, Whole Blood 233 mg/dL (60-115)
[2024-05-11] MEDS: Loratadine 10 MG TABLET PO (08:01)
[2024-05-11] MEDS: FLUoxetine HCl 20 MG CAPSULE PO (08:01)
[2024-05-11] MEDS: Insulin Lispro 100 UNIT/ML 3 ML VIAL SUBCUT ×2 (08:01→11:23)
[2024-05-11] MEDS: Ezetimibe 10 MG TABLET PO (08:01)
[2024-05-11] MEDS: SITagliptin Phosphate 100 MG TABLET PO (08:01)
[2024-05-11] MEDS: Sucralfate 1 GM TABLET PO (08:01)
[2024-05-11] MEDS: lisinopriL 5 MG TABLET PO (08:01)
[2024-05-11] MEDS: 0.9 % Sodium Chloride Flush 3 ML SYRINGE IVFLUSH (08:01)
[2024-05-11] MEDS: Atorvastatin Calcium 40 MG TABLET PO (08:02)
[2024-05-11] MEDS: levETIRAcetam 500 MG TABLET PO (08:58)
[2024-05-11] MEDS: Cinacalcet HCl 30 MG TABLET PO (09:46)
[2024-05-11 11:24] LABS: Glucose, Whole Blood 291 mg/dL (60-115)
--- NOTE | 2024-05-11 11:46 | P.PNNP_ITS ---
Subjective Subjective Date of Service: 05/11/24 Interval history: 74-year-old female with history of DMII, GERD, mood disorder, HLD, chronic low back pain, and polyneuropathy to be observed for near syncope. pt has reported ongoing dizziness for 1 year now, she states she falls back and to the right each time. Head CT shows meningioma pt states she had not been drinking much fluid and had reduced urination with urgency before coming into the hospital Today pt reports her dizziness has improved since yesterday and she is feeling much better, though still senses some mild dizziness has not had any orthostatic hypotension when checking orthostatics in hospital meningioma is stable per neuro she states she is urinating regularly without difficulty her calcium level is now at her typical baseline after hydration parathyroid hormone is elevated at 309, vitamin D low at 15 continues to work on hydration (PO) her renal function is normal. Physical Exam 2 Vital Signs: Vital Signs: Last Vital Signs Temp 97.7 F 05/11/24 11:40 Pulse 58 05/11/24 11:40 Resp 20 05/11/24 11:40 BP 135/64 05/11/24 11:40 Pulse Ox 97 05/11/24 11:40 O2 Del Method Room Air 05/11/24 11:40 BMI result Body Mass Index 25.9 Const: General: comfortable and no acute distress O rientation/consciousness: oriented to person, oriented to place and oriented to time Neck: Neck: Yes no JVD Resp: Effort & Inspection: able to speak in complete sentences A uscultation: clear to auscultation bilaterally Cardio: Jugular venous distension: no JVD Rate: regular rate Rhythm: r egular rhythm Heart sounds: S1 normal heart sound present and S2 normal heart sound present GI: Palpation (GI): Soft to palpation Rectal Exam - Female: No tenderness : General: Yes no CVA tenderness Back/Spine/Pelvis: Back: no CVA tenderness Skin: Rashes: no rashes Neuro: General: oriented to person, oriented to place and oriented to time Cranial nerves: Yes Normal hearing present Extrem: General: Yes normal to inspection, No edema and No pedal edema Objective Data Labs 05/09/24 06:23 05/10/24 14:06 Labs: Laboratory Results - last 24 hr 05/10/24 05/10/24 05/10/24 14:06 15:30 20:28 Sodium 138 Potassium 4.5 Chloride 113 H Carbon Dioxide 21 L Anion Gap 9 L BUN 9 Creatinine 0.73 Estim Creat Clear Calc 68.6 Estimated GFR > 60 POC Glucose 135 H 333 H Random Glucose 177 H Calcium 10.5 H 05/11/24 05/11/24 07:20 11:20 Sodium Potassium Chloride Carbon Dioxide Anion Gap BUN Creatinine Estim Creat Clear Calc Estimated GFR POC Glucose 233 H 291 H Random Glucose Calcium Microbiology Microbiology Results: Microbiology 05/08/24 16:29 Blood - Venous Blood Culture - Preliminary No growth after 48 hours. 05/08/24 15:10 Blood - Venous Blood Culture - Preliminary No growth after 48 hours. Procedures Date of Service Date of Service: 05/11/24 Assessment & Plan Assessment and plan (1) Hypercalcemia: Status: Acute (2) Hypertension: Status: Acute (3) Orthostatic hypotension: Status: Acute (4) Hyperkalemia: Status: Acute Plan Hypercalcemia longstanding secondary to hyperparathyroidism (acute increase likely secondary to dehydration) and labile HTN. Stable and may be treated as outpatient. blood pressures suboptimally controlled recommend lisinopril 5mg BID she should follow up with nephrology and/or PCP outpatient for continued management Time Spent With Patient Time: Total time managing care of this patient today ____ minutes. Progress Note: Quality Stroke Does the patient have a stroke diagnosis?: No
--- NOTE | 2024-05-11 13:56 | MHC.CM.PN ---
Addendum entered by Radha Washburn 05/11/24 14:22: Pt will transport home via [facility] today at 4:30pm, pts daughter Yazmin notified of pts discharge and will be at home when she arrives home. Original Note: Pt is medically cleared for discharge home with resumption of previous [facility] services.
--- NOTE | 2024-05-11 14:00 | PM.DS ---
DS: Providers Provider Date of Service: 05/11/24 Date of admission: 05/08/24 18:27 Date of discharge: 05/11/24 Primary care physician: Lilliana Esparza MD Consults: 05/08/24 18:32 Consult to Neurology Routine Consulting Provider: [facility] Reason for consultation: near syncope Has provider been notified: No 05/09/24 08:11 Consult to Nephrology Routine Consulting Provider: [facility] Reason for consultation: persitent hypercalcemia /lactic acidosis Has provider been notified: No Attending physician on discharge: Edgar Kee Discharging clinician: Edgar Kee DS: Diagnosis Discharge Diagnosis (1) Hypercalcemia: Status: Acute (2) Hypertension: Status: Acute DS: Summary Hospital Course Hospital Course: 74-year-old female with history of insulin-dependent type 2 diabetes, GERD, mood disorder, hyperlipidemia, chronic low back pain, and polyneuropathy presented to the ED earlier today for evaluation of lightheadedness with at least 4 falls in the last 4 days. She was recently seen at pain management clinic at [facility] where she received a cortisone injection in the back for chronic pain. Since then, she has been having increased urination with elevated glucose levels and has been unable to keep up with oral hydration. Upon waking every morning she feels lightheaded and has fallen forward without any head injury or loss of consciousness. She is ambulatory at baseline. No other prodrome including vision changes, headache, shortness of breath, palpitations, chest pain. No recent illness. No nausea, vomiting, dysuria, diarrhea. Since arrival, vitals have been stable, no hypotension. There is a mild leukocytosis of 11.0, likely steroid induced. Renal function is baseline, electrolytes significant for sodium 134, potassium 5.4, and calcium 12.2. Initial glucose 367 improved to 11 with IV fluids. Initial lactic acid 2.7, repeat 3.7. Troponin undetectable, BNP undetectable. Negative for COVID flu, RSV. Head CT negative for acute intracranial abnormality which shows stable right frontal parasagittal hypodense calcified meningioma. Cervical spine CT shows mild straightening of cervical lordosis without any visible acute fracture, dislocation or subluxation. Chest x-ray unremarkable. In the ED, given 20 units Lantus and 2 L IVF now on maintenance IVF. hospital course: Patient was admitted to the hospital because of possible near-syncope episode-subsequently workup for orthostatic, , tele, echo-done seems to be fine(ef 70%), also MRI was done which shows stable meningioma, patient possibly had initially relative orthostasis secondary to dehydration might have caused symptoms patient was hydrated with IV fluids and seems to be improved significantly. orthostatic vitals checked last night seems fine. Her blood pressure is still fluctuating. Discussed with the Nephrology -continue lisinopril since blood pressure fluctuating, if bp persistently elevated consider amlodipine 2.5 mg po at bedtime daily. possible seizure disorder-EEG showed-Right temporal sharps, neurology recommended to add Keppra 500 b.i.d. In addition patient had hyperkalemia-thought to be in the setting of hyperglycemia /acute lactic acidosis : seems improved with hydration and glucose control. Dm with hyperglycemia -fs flactuates ,continue current dm insulin regimen ,moniter fs, hba1c improving from previous .outpatient follow up with pcp. Acute on chronic hypercalcemia-likely multifactorial,Has normal phosphorus levels, decreased vitamin-D, elevated PTH. Nephrology evaluated the patient - Hypercalcemia longstanding secondary to hyperparathyroidism (acute increase likely secondary to dehydration) which seems to be improving with hydration-nephrology will follow up patient outpatient for further management . moniter renal function and electrolytes outpatient. plan: Started on Keppra 500 mg p.o. b.i.d. due to abnormal EEG-possible seizure disorder. Monitor renal function electrolytes due to multiple electrolytic abnormalities as above. Patient was strongly advised for p.o. intake and hydration. Monitor hemoglobin A1c. If blood pressure persistently above 140s outpatient-consider amlodipine low dose 2.5 mg at bedtime. Above management discussed with the patient detail length she understand and in agreement with the above plan. Time Attestation Total time managing care of this patient today: 40 mintues. Discharge Coordination Time (in mins): 40 min Quality: Safe Use of Opioids Does Pt have an Active Cancer Diagnosis on the Problem List?: No Quality: Stroke Does the patient have a stroke diagnosis?: No Physical Exam Vital Signs: Vital Signs: Last Vital Signs Temp 97.7 F 05/11/24 11:40 Pulse 58 05/11/24 11:40 Resp 20 05/11/24 11:40 BP 135/64 05/11/24 11:40 Pulse Ox 97 05/11/24 11:40 O2 Del Method Room Air 05/11/24 11:40 BMI result Body Mass Index 25.9 Appearance: Alert.? Oriented X3.? Eyes: Pupils equal, round and reactive to light.? Sclera nonicteric.? ENT: Pharynx normal.? Moist mucous membranes. cvs: rrr, [id number] , no murmur res: clear to auscultation ,no rhonchii or wheezing abd: no rebound or guarding ,nt, bs present. ext pulses present , no cyanosis . neuro: axo3 , nonfocal. DS: Data Data Completed and Pending Labs on day of discharge: Laboratory Results - last 24 hr 05/10/24 05/10/24 05/10/24 14:06 15:30 20:28 Sodium 138 Potassium 4.5 Chloride 113 H Carbon Dioxide 21 L Anion Gap 9 L BUN 9 Creatinine 0.73 Estim Creat Clear Calc 68.6 Estimated GFR > 60 POC Glucose 135 H 333 H Random Glucose 177 H Calcium 10.5 H 05/11/24 05/11/24 07:20 11:20 Sodium Potassium Chloride Carbon Dioxide Anion Gap BUN Creatinine Estim Creat Clear Calc Estimated GFR POC Glucose 233 H 291 H Random Glucose Calcium Preliminary micro results at discharge 05/08/24 16:29 Blood Culture - Preliminary Blood - Venous No growth after 48 hours. 05/08/24 15:10 Blood Culture - Preliminary Blood - Venous No growth after 48 hours. Imaging Chest x-ray: Radiologist's impression: ITS Impressions Cervical Spine CT 05/08/24 14:55 IMPRESSION: No acute intracranial process seen. Stable right frontal parasagittal hypodense calcified meningioma. Mild straightening of cervical lordosis without any visible acute fracture, dislocation or subluxation seen. Electronically signed by: Mark Mcleod MD 05/08/2024 05:33 PM EDT RP Chest X-Ray 05/08/24 14:56 IMPRESSION: Unremarkable examination. Electronically signed by: Juan Hernandez MD 05/08/2024 05:49 PM EDT RP Head CT 05/08/24 16:20 IMPRESSION: No acute intracranial process seen. Stable right frontal parasagittal hypodense calcified meningioma. Mild straightening of cervical lordosis without any visible acute fracture, dislocation or subluxation seen. Electronically signed by: Mark Mcleod MD 05/08/2024 05:33 PM EDT RP Brain MRI 05/09/24 17:36 IMPRESSION: 1. Unchanged age-related cerebral atrophy and ischemic white matter lesions compatible with microangiopathy. 2. No acute cerebral infarction is seen. 3. Stable anterior right parasagittal extra-axial dural based mass lesion, compatible with stable meningioma. 4. No evidence of intracranial hemorrhage. 5. Interval resolution of the focal T2 hyperintense lesion in right posterior parasagittal pontomesencephalic junction. Electronically signed by: Esme Escobedo MD 05/10/2024 05:29 PM EDT RP echo: - Normal left ventricular cavity size. There is normal left ventricular wall thickness. The left ventricular systolic function is hyperdynamic. The visually estimated ejection fraction is >70%. - Normal right ventricular cavity size and systolic function. Discharge Plan Discharge Anticipated Discharge Date/Time: 05/11/24 13:14 Patient Disposition: Home Health Service Discharge Diagnosis: Possible near-syncope episode due to dehydration, fluctuating blood pressure. Hyperkalemia, hypercalcemia Referrals: [facility]UT[facility] [Outside] - 1 Week Lilliana Esparza MD [Primary Care Provider] - 1 Week Discharge Medications: New amlodipine 2.5 mg tablet 2.5 mg PO BEDTIME Qty: 30 0RF Rx Instructions: consider using amlodipine 2.5 mg daily if blood pressure persistently elevated above 140 mmhg levetiracetam 500 mg Tablet 500 mg PO BID Qty: 180 0RF Continued colchicine 0.6 mg tablet 0.6 mg PO BID PRN (Reason: pain/gout) Qty: 14 0RF (DME) blood-glucose meter [FreeStyle [place]] Kit See Rx Instructions .Route Qty: 1 0RF Rx Instructions: As directed (DME) Freestyle In[employer] Test Strips Strip See Rx Instructions .Route Qty: 100 0RF Rx Instructions: As directed (DME) lancets [FreeStyle Lancets] 28 gauge misc See Rx Instructions .Route Qty: 100 0RF Rx Instructions: As directed glucagon HCl [Glucagon (HCl) Emergency Kit] 1 mg recon soln 1 mg subcut Q20M PRN (Reason: hypoglycemia) Qty: 1 0RF Rx Instructions: until target blood sugar attained pregabalin 75 mg capsule 75 mg PO BEDTIME Qty: 30 0RF cetirizine 10 mg tablet 10 mg PO DAILY cyanocobalamin (vitamin B-12) 1,000 mcg tablet 1,000 mcg PO BEDTIME meclizine 25 mg tablet 25 mg PO TID PRN (Reason: dizziness) fluoxetine 20 mg tablet 20 mg PO DAILY metformin 1,000 mg tablet 1,000 mg PO BID lisinopril 5 mg tablet 5 mg PO DAILY fluticasone propionate 50 mcg/actuation spray,suspension 1 spray intranasal DAILY PRN (Reason: Allergy Symptoms) ezetimibe 10 mg tablet 10 mg PO DAILY rosuvastatin 10 mg tablet 10 mg PO DAILY Januvia 100 mg tablet 100 mg PO DAILY insulin glargine [Lantus Solostar U-100 Insulin] 100 unit/mL (3 mL) insulin pen 20 unit subcut BEDTIME pantoprazole [Protonix] 40 mg tablet,delayed release (DR/EC) 40 mg PO DAILY@0630 insulin aspart U-100 [Novolog FlexPen U-100 Insulin] 100 unit/mL (3 mL) insulin pen 10 unit subcut BID sucralfate 1 gram tablet 1 g PO BID Qty: 180 3RF Discharge Orders: Discharge Order (Routine); Ordered 05/11/24 Ordered By: Edgar Kee Diet: Advance to usual diet Activity on Discharge: As tolerated Stand Alone Forms: Patient Portal Discharge page Print Language: Ug[place]an Other Ambulatory Orders: Basic Metabolic Panel (Routine) Timeframe: 1 Week Facility: [facility] - Location: Laboratory Ordered By: Edgar Kee Care Plan Goals: Patient was admitted to the hospital because of possible near-syncope episode-subsequently workup for orthostatic, , tele, echo-done seems to be fine, also MRI was done which shows stable meningioma, patient possibly had initially relative orthostasis secondary to dehydration might have caused symptoms patient was hydrated with IV fluids and seems to be improved significantly. orthostatic vitals checked last night seems fine. Her blood pressure is still fluctuating. Discussed with the Nephrology -continue lisinopril since blood pressure fluctuating, if bp persistently elevated consider amlodipine 2.5 mg po at bedtime daily. EEG showed-Right temporal sharps, neurology recommended to add Keppra 500 b.i.d. In addition patient had hyperkalemia-thought to be in the setting of hyperglycemia /acute lactic acidosis : seems improved with hydration and glucose control. Dm with hyperglycemia -fs flactuates ,continue current dm insulin regimen ,moniter fs, hba1c improving from previous .outpatient follow up with pcp. Acute on chronic hypercalcemia-likely multifactorial,Has normal phosphorus levels, decreased vitamin-D, elevated PTH. Nephrology evaluated the patient - Hypercalcemia longstanding secondary to hyperparathyroidism (acute increase likely secondary to dehydration) which seems to be improving with hydration-nephrology will follow up patient outpatient for further management . moniter renal function and electrolytes outpatient. Health Concerns: as above. Plan of Treatment: Monitor blood pressure closely. Monitor electrolytes like and renal function. Follow-up with PCP and Nephrology outpatient Assessment: as above.
[2024-05-11 16:28] LABS: Glucose, Whole Blood 149 mg/dL (60-115)
== END 2024-05-11 16:21 | disposition home health service (06) ==
LOC: HO.ED 18:31 → HO.EDOVER 18:38 → HO.IMC 05-09 16:59
PROVIDERS: Nurse Practitioner Family; Physician Assistant; Admitting Provider Internal Medicine; Emergency Provider Emergency Medicine; PCP Pediatrics; Visit Provider Internal Medicine
DX: R55 Syncope and collapse (principal); E86.0 Dehydration; E83.52 Hypercalcemia; E87.5 Hyperkalemia; I10 Essential (primary) hypertension; R94.01 Abnormal electroencephalogram [EEG]; E11.65 Type 2 diabetes mellitus with hyperglycemia; K21.9 Gastro-esophageal reflux disease without esophagitis; E87.20 Acidosis, unspecified; R35.0 Frequency of micturition; G89.29 Other chronic pain; M54.50 Low back pain, unspecified; M54.17 Radiculopathy, lumbosacral region; Z91.81 History of falling; Z79.899 Other long term (current) drug therapy; Z79.4 Long term (current) use of insulin; Z03.818 Encounter for observation for suspected exposure to other biological agents ruled out
CPT/HCPCS: 0241U; 36415; 70450; 70551; 71045; 72125; 80048; 80076; 81001; 82306; 82947; 83036; 83605; 83690; 83880; 83970; 84100; 84484; 85025; 87040; 93005; 93306; 95816; 96360; 96361; 99222; 99285; J1650; Q9957

== ENCOUNTER 2024-05-08 18:27 | Outpatient (BNV) | payer MEDICARE, MEDICAID, SELFPAY | END 2024-05-10 07:00 | PROVIDERS: Admitting Provider Internal Medicine; Emergency Provider Emergency Medicine; PCP Pediatrics; Visit Provider Internal Medicine Cardiovascular Disease | DX: R55 Syncope and collapse (principal) | CPT/HCPCS: 93306 ==

== ENCOUNTER → 2024-05-08 18:27 | Outpatient (BNV) | payer MEDICARE, MEDICAID, SELFPAY | PROVIDERS: Admitting Provider Internal Medicine; Emergency Provider Emergency Medicine; PCP Pediatrics; Visit Provider Physician Assistant | DX: I95.1 Orthostatic hypotension (principal); E87.5 Hyperkalemia; E83.52 Hypercalcemia; R55 Syncope and collapse | CPT/HCPCS: 99222; 99232; 99239 ==

== ENCOUNTER → 2024-05-08 18:27 | Outpatient (BNV) | payer MEDICARE, MEDICAID, SELFPAY | PROVIDERS: Admitting Provider Internal Medicine; Emergency Provider Emergency Medicine; PCP Pediatrics; Visit Provider Psychiatry & Neurology Neurology | DX: R55 Syncope and collapse (principal) | CPT/HCPCS: 99222 ==

== ENCOUNTER → 2024-05-08 18:27 | Outpatient (BNV) | payer MEDICARE, MEDICAID, SELFPAY | PROVIDERS: Admitting Provider Internal Medicine; Emergency Provider Emergency Medicine; PCP Pediatrics; Visit Provider Nurse Practitioner Family | DX: E83.52 Hypercalcemia (principal); I95.1 Orthostatic hypotension; E87.5 Hyperkalemia | CPT/HCPCS: 99222; 99232 ==